=== PATIENT | female | born 1985 | race Caucasian/White ===

== ENCOUNTER → 2021-06-16 17:11 | Outpatient (BNVA) | payer OTHER, SELFPAY | PROVIDERS: Family Provider Counselor Professional; PCP Emergency Medicine; Visit Provider Nurse Practitioner Family | DX: N39.0 Urinary tract infection, site not specified (principal) | CPT/HCPCS: 81000 ==

== ENCOUNTER 2021-11-28 18:33 | Emergency (ER) | payer BC, SELFPAY ==
[2021-11-28] VITALS (8 sets, daily range): BP systolic 105–120; BP diastolic 69–82; PULSE 75–98; RESP 16–18; TEMP 36.9; O2SAT 97–100; BMI 20.8
--- NOTE | 2021-11-28 19:23 | W.ED.FEMALGU ---
Documented by User: JAYSON Stephens 11/28/21 21:18 HPI - Female Genitourinary General: Chief complaint: Urogenital-Female Stated complaint: abd pain sent by PCP Time Seen by Provider: 11/28/21 19:14 History of Present Illness: 36-year-old female comes in with right lower quadrant abdominal pain for the last 4 days. Patient reports pain is worse than usual. Patient does have a history of some abnormal uterine bleeding since May 2021. Patient states that she has a history of uterine fibroids which she thought was causing her abnormal bleeding and was wanting to follow-up with HEALTH CARE SANITARY TECHNICIAN but just has not had found time for it. Patient had last seen her HEALTH CARE SANITARY TECHNICIAN about 11 years ago for similar abnormal bleeding. Patient appears nontoxic. Patient appears in mild to moderate pain. Patient denies any abdominal surgeries except tubal ligation test at the clinic today was negative. Ultrasound performed at the clinic today of the pelvic area was unremarkable. Patient was referred from the local clinic due to the worsening abdominal pain. MD elicited complaint: pelvic pain Pertinent past history: tubal ligation Onset (ago): day(s) Location of symptoms: RLQ Vaginal discharge: none Associated symptoms: Deny nausea Review of Systems General: Reports: 10 or more systems reviewed and unremarkable except in HPI and below Const: Denies: fever(s) Card: Denies: chest pain Resp: Denies: dyspnea GI: Denies: nausea, diarrhea or constipation Musc: Reports: back pain Skin/Breast: Denies: rash Eugene/Lymph: Denies: easy bleeding PFS ED PFSH: Medical History (Updated 11/28/21 @ 21:10 by JAYSON Stephens) History of uterine fibroid Social History Smoking and tobacco status: current every day smoker Quit status (tobacco): not considering quitting Second hand smoke exposure: No Alcohol intake: current Alcohol intake frequency: holidays/special occasions only Desire information about substance/drug rehabilitation?: No Female Reproductive History: Spontaneous abortions: No Physical Exam Const: COMMON NORMALS: alert HENMT: COMMON NORMALS: atraumatic HEAD & SCALP: atraumatic Neck/C-Spine: COMMON NORMALS: full ROM Resp: COMMON NORMALS: normal respiratory effort and clear to auscultation bilaterally AUSCULTATION: clear to auscultation bilaterally Cardio: COMMON NORMALS: regular rate and regular rhythm RATE: regular rate RHYTHM: regular rhythm GI: COMMON NORMALS: Soft to palpation AUSCULTATION: Yes Hyperactive bowel sounds present PALPATION: Yes Soft to palpation and Yes Tenderness to palpation present (GI) Details: RLQ : COMMON NORMALS: Yes no CVA tenderness BLADDER/KIDNEY EXAM: Yes no CVA tenderness Back/Pelvis: COMMON NORMALS: no CVA tenderness Extremity: COMMON NORMALS: no pedal edema Neuro: SENSORIUM/ORIENTATION: Yes alert Psych: COMMON NORMALS: cooperative Skin: COMMON NORMALS: no rashes or lesions noted GENERAL SKIN EXAM: no rashes or lesions noted Course Vital Signs: Vital signs: Vital Signs Temperature 98.4 F 11/28/21 18:46 Pulse Rate 75 11/28/21 21:31 Respiratory Rate 16 11/28/21 21:31 Blood Pressure 106/76 11/28/21 21:31 Pulse Oximetry 99 11/28/21 21:31 [facility] - Female Medical Decision Making 36-year-old female comes in today with complaints of right lower quadrant abdominal pain. Patient was seen at a local clinic and was recommended to be evaluated further in the ER due to the pain and increasing discomfort over the last 4 days. Patient reports abnormal uterine bleeding for the last 6 months since May 2021. Patient reports a history of uterine fibroids. Patient appears in mild to moderate pain. Patient appears nontoxic. Oral mucosa is pink and moist. Lungs are clear to auscultation. Bowel sounds are present throughout abdomen. Patient is tender in the right lower quadrant. Differential diagnosis includes but not limited to ovarian cyst, uterine fibroid, appendicitis, dysfunctional uterine bleeding, ectopic . Laboratory values were unremarkable. No signs of significant anemia was noted. CT of the abdomen pelvis showed no acute findings. Patient had resolution of pain after 1 dose of morphine and Zofran. I encourage her to drink plenty of fluids and follow-up with HEALTH CARE SANITARY TECHNICIAN regarding her irregular menstrual cycle and persistent uterine bleeding. Patient reported understanding agreed to plan. Gonorrhea chlamydia test was outstanding. Lab Data : 11/28/21 19:40 11/28/21 19:40 Radiology Impressions Abdomen/Pelvis CT 11/28/21 19:38 IMPRESSION: 1. No acute findings. 2. Findings consistent with medullary nephrocalcinosis. COMMENTS: Consistent with the [employer]'s Incidental Findings Committee white paper (J Am Rajni Radiol 2018): Any incidental renal lesion less than 1 cm or classified as too small to characterize, or any incidental cystic renal lesion characterized as simple-appearing, is likely benign. No follow-up imaging is recommended for these lesions per consensus recommendations based on imaging criteria. Laboratory Results WBC 7.5 10^3/uL (4.0-10.0) 11/28/21 19:40 RBC 4.00 10^6/uL (4.1-5.3) L 11/28/21 19:40 Hgb 13.5 g/dL (11.5-15.3) 11/28/21 19:40 Hct 40.5 % (37.0-47.0) 11/28/21 19:40 MCV 101.3 fl (81-99) H 11/28/21 19:40 MCH 33.8 pg (28.0-34.0) 11/28/21 19:40 MCHC 33.3 g/dL (30.0-36.0) 11/28/21 19:40 RDW 13.2 % (12.1-15.1) 11/28/21 19:40 Plt Count 203 10^3/cmm (130-400) 11/28/21 19:40 MPV 10.9 fL (7.4-10.4) H 11/28/21 19:40 Neut % (Auto) 50.9 % 11/28/21 19:40 Lymph % (Auto) 36.3 % 11/28/21 19:40 Randall % (Auto) 6.4 % 11/28/21 19:40 Eos % (Auto) 5.6 % 11/28/21 19:40 Baso % (Auto) 0.7 % 11/28/21 19:40 Neut # (Auto) 3.84 10^3/uL (1.8-7.7) 11/28/21 19:40 Lymph # (Auto) 2.7 10^3/uL (0.8-4.8) 11/28/21 19:40 Randall # (Auto) 0.5 10^3/uL (0.2-0.9) 11/28/21 19:40 Eos # (Auto) 0.4 10^3/uL (0.0-0.8) 11/28/21 19:40 Baso # (Auto) 0.1 10^3/uL (0.0-0.1) 11/28/21 19:40 Nucleated RBC % (auto) 0 % 11/28/21 19:40 Nucleated RBCs # 0.0 /100WBC 11/28/21 19:40 Sodium 139 mmol/L (136-145) 11/28/21 19:40 Potassium 3.9 mmol/L (3.5-5.1) 11/28/21 19:40 Chloride 103 mmol/L (98-107) 11/28/21 19:40 Carbon Dioxide 26 mmol/L (22-29) 11/28/21 19:40 Anion Gap 13.9 (5-19) 11/28/21 19:40 BUN 6 mg/dL (6-20) 11/28/21 19:40 Creatinine 0.6 mg/dL (0.5-0.9) 11/28/21 19:40 GFR Calculation 113.8 mL/min (90-130) 11/28/21 19:40 Glucose 95 mg/dL (65-115) 11/28/21 19:40 Calculated Osmolality 285 mOsm/kg (285-295) 11/28/21 19:40 Calcium 8.8 mg/dL (8.5-10.5) 11/28/21 19:40 Total Bilirubin 0.2 mg/dL (0.15-1.2) 11/28/21 19:40 AST 23 U/L (0-32) 11/28/21 19:40 ALT 22 U/L (0-33) 11/28/21 19:40 Alkaline Phosphatase 92 IU/L (35-105) 11/28/21 19:40 Total Protein 6.0 g/dL (6.6-8.7) L 11/28/21 19:40 Albumin 4.4 g/dL (3.5-5.2) 11/28/21 19:40 Globulin 1.6 g/dL (1.3-4.6) 11/28/21 19:40 HCG, Qual Negative (Negative) 11/28/21 19:40 Urine Color Yellow (Yellow) 11/28/21 19:31 Urine Appearance Clear (CLEAR) 11/28/21 19:31 Urine pH 6 (5-7) 11/28/21 19:31 Ur Specific Monroe 1.010 (1.005-1.030) 11/28/21 19:31 Urine Protein Neg (Negative) 11/28/21 19:31 Urine Glucose (UA) Norm (Normal) 11/28/21 19:31 Urine Ketones Negative (Negative) 11/28/21 19:31 Urine Blood Neg (Negative) 11/28/21 19:31 Urine Nitrate Negative (Negative) 11/28/21 19:31 Urine Bilirubin Neg (Negative) 11/28/21 19:31 Urine Urobilinogen Norm mg/dL (Negative) 11/28/21 19:31 Ur Leukocyte Esterase Negative (Negative) 11/28/21 19:31 Discharge Plan Discharge Patient Disposition: Home Clinical Impression: History of uterine fibroid, Abnormal uterine bleeding (AUB) Abdominal pain Qualifiers: Abdominal location: right lower quadrant Qualified Code(s): R10.31 - Right lower quadrant pain Condition: Stable Prescriptions: New hydrocodone-acetaminophen 5-325 mg tablet 1 tab PO Q8H PRN (Reason: pain) Qty: 7 0RF naproxen 500 mg tablet 500 mg PO BID Qty: 60 0RF No Action rizatriptan 10 mg tablet 10 mg PO Q2H PRN (Reason: Migraine Headache) 0RF Rx Instructions: do not exceed 3 doses per 24 hrs fluticasone propionate 50 mcg/actuation spray,suspension 1 spray INTRANASAL DAILY PRN (Reason: Nasal Congestion) 0RF Discharge Orders: Discharge ED (Routine); Ordered 11/28/21 Ordered By: Christian Machado Referrals: Viet Moreno PA [Primary Care Provider] - Discharge Diet: Usual diet Discharge Activity: Increase activity as tolerated Patient Instructions: Abdominal Pain (ED), Opioid Safety Activity Restrictions/Additional Instructions: Home and rest. Drink plenty of fluids with medication. Use naproxen twice daily to help with pelvic pain and cramping. Take hydrocodone for severe pain. Follow-up with HEALTH CARE SANITARY TECHNICIAN for abnormal uterine bleeding. Follow-up with primary care for further evaluation and treatment. Return to ER for worsening symptoms or new concerns. Coding Level of Care Code ED Electrical High Tension Tester for Chg Fwd Exam Comprehensive Documented by User: Bishnu Pichardo DO 11/29/21 00:27 HPI - Female Genitourinary General: Chief complaint: Urogenital-Female Stated complaint: abd pain sent by PCP Time Seen by Provider: 11/28/21 19:14 PFSH ED PFSH: Medical History (Updated 11/28/21 @ 21:10 by JAYSON Stephens) History of uterine fibroid Social History Smoking and tobacco status: current every day smoker Quit status (tobacco): not considering quitting Second hand smoke exposure: No Alcohol intake: current Alcohol intake frequency: holidays/special occasions only Desire information about substance/drug rehabilitation?: No Course Vital Signs: Vital signs: Vital Signs Temperature 98.4 F 11/28/21 18:46 Pulse Rate 75 11/28/21 21:31 Respiratory Rate 16 11/28/21 21:31 Blood Pressure 106/76 11/28/21 21:31 Pulse Oximetry 99 11/28/21 21:31 MDM - Female Medical Decision Making 36-year-old female comes in today with complaints of right lower quadrant abdominal pain. Patient was seen at a local clinic and was recommended to be evaluated further in the ER due to the pain and increasing discomfort over the last 4 days. Patient reports abnormal uterine bleeding for the last 6 months since May 2021. Patient reports a history of uterine fibroids. Patient appears in mild to moderate pain. Patient appears nontoxic. Oral mucosa is pink and moist. Lungs are clear to auscultation. Bowel sounds are present throughout abdomen. Patient is tender in the right lower quadrant. Differential diagnosis includes but not limited to ovarian cyst, uterine fibroid, appendicitis, dysfunctional uterine bleeding, ectopic . Laboratory values were unremarkable. No signs of significant anemia was noted. CT of the abdomen pelvis showed no acute findings. Patient had resolution of pain after 1 dose of morphine and Zofran. I encourage her to drink plenty of fluids and follow-up with HEALTH CARE SANITARY TECHNICIAN regarding her irregular menstrual cycle and persistent uterine bleeding. Patient reported understanding agreed to plan. Gonorrhea chlamydia test was outstanding. This patient was originally seen by JAYSON Estrada.? I agree with his history, evaluation, and treatment. Lab Data : 11/28/21 19:40 11/28/21 19:40 Radiology Impressions Abdomen/Pelvis CT 11/28/21 19:38
--- NOTE | 2021-11-28 19:38 | CTR_ITS ---
PROCEDURE INFORMATION: Exam: CT Abdomen And Pelvis With Contrast Exam date and time: 11/28/2021 8:29 PM Age: 36 years old Clinical indication: Abdominal pain; Localized; Lower; Prior surgery; Surgery type: Gb. Tubal; Patient HX: C/O RT pelvic pain x 4 days. ; Additional info: Right pelvic pain TECHNIQUE: Imaging protocol: Computed tomography of the abdomen and pelvis with contrast. Radiation optimization: All CT scans at this facility use at least one of these dose optimization techniques: automated exposure control; mA and/or kV adjustment per patient size (includes targeted exams where dose is matched to clinical indication); or iterative reconstruction. Contrast material: OMNI 300; Contrast volume: 95 ml; Contrast route: INTRAVENOUS (IV); COMPARISON: No relevant prior studies available. RADIATION DOSE METRICS: Total DLP (mGy-cm): 984.79 FINDINGS: Liver: Normal. No mass. Gallbladder and bile ducts: Cholecystectomy. No ductal dilation. Pancreas: Normal. No ductal dilation. Spleen: Normal. No splenomegaly. Adrenal glands: Normal. No mass. Kidneys and ureters: Multiple calcifications throughout the renal pyramids. Scattered simple appearing cysts within both kidneys measuring up to 2 cm. No hydronephrosis. Stomach and bowel: Moderate colonic stool burden. No obstruction. No mucosal thickening. Appendix: No evidence of appendicitis. Intraperitoneal space: Unremarkable. No free air. No significant fluid collection. Vasculature: Unremarkable. No abdominal aortic aneurysm. Lymph nodes: Unremarkable. No enlarged lymph nodes. Urinary bladder: Unremarkable as visualized. Reproductive: Unremarkable as visualized. Bones/joints: No acute fracture. Soft tissues: Unremarkable. CT/CT abdomen pelvis w con* [id number] IMPRESSION: 1. No acute findings. 2. Findings consistent with medullary nephrocalcinosis. COMMENTS: Consistent with the [employer]'s Incidental Findings Committee white paper (J Am Rajni Radiol 2018): Any incidental renal lesion less than 1 cm or classified as too small to characterize, or any incidental cystic renal lesion characterized as simple-appearing, is likely benign. No follow-up imaging is recommended for these lesions per consensus recommendations based on imaging criteria.
[2021-11-28 19:48] LABS: Add Urine Microscopic? NO; Charge for UA Resulting for Rev
[2021-11-28 19:50] LABS: Basophils # 0.1 10^3/uL (0.0-0.1); Basophils % 0.7 %; Eosinophils # 0.4 10^3/uL (0.0-0.8); Eosinophils % 5.6 %; Hematocrit 40.5 % (37.0-47.0); Hemoglobin 13.5 g/dL (11.5-15.3); Lymphocytes # 2.7 10^3/uL (0.8-4.8); Lymphocytes % 36.3 %; Mean Corpuscular HGB Conc 33.3 g/dL (30.0-36.0); Mean Corpuscular Hemoglobin 33.8 pg (28.0-34.0); Mean Corpuscular Volume 101.3 fl (81-99); Mean Platelet Volume 10.9 fL (7.4-10.4); Monocytes # 0.5 10^3/uL (0.2-0.9); Monocytes % 6.4 %; Neutrophils # 3.84 10^3/uL (1.8-7.7); Neutrophils % 50.9 %; Nucleated Red Blood Cells % 0 %; Platelet Count 203 10^3/cmm (130-400); Red Cell Distribution Width 13.2 % (12.1-15.1); White Blood Count 7.5 10^3/uL (4.0-10.0)
[2021-11-28 19:52] LABS: Bilirubin Urine Neg (Negative); Blood Urine Neg (Negative); Glucose Urine UA Norm (Normal); Ketones Urine Negative (Negative); Leukocyte Esterase Urine Negative (Negative); Nitrate Urine Negative (Negative); Protein Urine Neg (Negative); Urine Appearance Clear (CLEAR); Urine Color Yellow (Yellow); Urobilinogen Urine Norm (Negative); pH Urine 6 (5-7)
[2021-11-28] MEDS: sodium chloride 0.9% 500 ML 999 ML IV (20:04)
[2021-11-28] MEDS: ondansetron 2 mg/ML SDV 2 mL 4 MG IVP (20:04)
[2021-11-28] MEDS: morphine 4 mg/mL SDV 1 mL IVP (20:06)
[2021-11-28 20:09] LABS: Alanine Aminotransferase 22 U/L (0-33); Albumin Level 4.4 g/dL (3.5-5.2); Alkaline Phosphatase 92 IU/L (35-105); Anion Gap 13.9 (5-19); Aspartate Amino Transferase 23 U/L (0-32); Blood Urea Nitrogen 6 mg/dL (6-20); Calcium 8.8 mg/dL (8.5-10.5); Carbon Dioxide 26 mmol/L (22-29); Chloride 103 mmol/L (98-107); Globulin 1.6 g/dL (1.3-4.6); Glomerular Filtration Rate 113.8 mL/min (90-130); Glucose 95 mg/dL (65-115); Osmolality Calculated 285 mOsm/kg (285-295); Potassium 3.9 mmol/L (3.5-5.1); Sodium 139 mmol/L (136-145); Total Bilirubin 0.2 mg/dL (0.15-1.2)
[2021-11-28 20:11] LABS: HCG, Serum Qual Negative (Negative)
[2021-11-28] MEDS: iohexol 300 mg/mL 100 mL Btl IV (20:30)
--- NOTE | 2021-12-01 11:26 | DCPLANNER ---
Addendum entered by Meagan Luque 12/05/21 11:21: manager book spoke with Adrian at [facility], to confirm if an appointment had been scheduled for patient. manager book was told that clinic has not been able to reach patient. Clinic has tried to call several times, and mailed a letter to patient to call clinic to schedule a follow up appointment. Original Note: manager book had message to schedule a follow up appointment for patient with [facility]. manager book sent patients information to the front staff at [facility] thru the [employer] messaging system. Patients information will be printed and reviewed. Clinic will call patient with appointment information.
== END 2021-11-28 21:25 | disposition home or self-care (01) ==
PROVIDERS: Emergency Provider Nurse Practitioner Family; PCP Emergency Medicine
DX: N93.9 Abnormal uterine and vaginal bleeding, unspecified (principal); F17.210 Nicotine dependence, cigarettes, uncomplicated
CPT/HCPCS: 74177; 80053; 81000; 81003; 81025; 84703; 85025; 96374; 96375; 99284; J2270; J2405; J7040; Q9967

== ENCOUNTER → 2022-07-07 16:30 | Outpatient (BNVA) | payer BC, SELFPAY | PROVIDERS: PCP Emergency Medicine; Visit Provider Emergency Medicine | DX: S49.91XA Unspecified injury of right shoulder and upper arm, initial encounter (principal); X58.XXXA Exposure to other specified factors, initial encounter | CPT/HCPCS: 73030 ==

== ENCOUNTER → 2022-07-27 14:06 | Outpatient (BNVA) | payer BC, SELFPAY | PROVIDERS: Visit Provider Nurse Practitioner Family | DX: M19.011 Primary osteoarthritis, right shoulder (principal) | CPT/HCPCS: 73030 ==

== ENCOUNTER 2022-08-05 06:00 | Outpatient (RCR) | payer BC, SELFPAY | END 2022-08-29 23:59 | disposition home or self-care (01) | LOC: MPT 06:00 | PROVIDERS: Visit Provider Nurse Practitioner Family | DX: M25.511 Pain in right shoulder (principal) | CPT/HCPCS: 97110; 97140; 97161 ==

== ENCOUNTER 2022-08-30 06:00 | Outpatient (RCR) | payer BC, SELFPAY | END 2022-09-29 23:59 | disposition home or self-care (01) | LOC: MPT 06:00 | PROVIDERS: Visit Provider Nurse Practitioner Family | DX: M25.511 Pain in right shoulder (principal) | CPT/HCPCS: 97110 ==

== ENCOUNTER 2023-03-17 22:54 | Emergency (ER) | payer BC, SELFPAY ==
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
[2023-03-17 23:02] VITALS: BP 134/83; PULSE 84; RESP 12; TEMP 36.8; O2SAT 100; BMI 18.0
[2023-03-17] MEDS: diphenhydrAMINE 50 mg/mL SDV 1mL 25 MG IVP (23:46)
[2023-03-17] MEDS: LORazepam 2 mg/mL INJ 1 mL 0.5 MG IVP (23:46)
[2023-03-17 23:52] VITALS: BP 141/81; PULSE 85; RESP 20; O2SAT 100
--- NOTE | 2023-03-24 12:00 | DCPLANNER ---
manager of security called patient due to no primary care physician - no answer at this time.
== END 2023-03-18 00:26 | disposition home or self-care (01) ==
PROVIDERS: Emergency Provider Physician Assistant
DX: F41.9 Anxiety disorder, unspecified (principal); F17.210 Nicotine dependence, cigarettes, uncomplicated
CPT/HCPCS: 96374; 96375; 99284; J1200; J2060

== ENCOUNTER 2023-04-18 00:54 | Emergency (ER) | payer SELFPAY ==
[2023-04-18 00:57] VITALS: BP 124/68; PULSE 124; RESP 18; TEMP 36.7; O2SAT 99; BMI 20.7
[2023-04-18 01:33] LABS: Basophils # 0.1 10^3/uL (0.0-0.1); Basophils % 0.8 %; Eosinophils # 0.2 10^3/uL (0.0-0.8); Eosinophils % 1.9 %; Lymphocytes # 2.9 10^3/uL (0.8-4.8); Lymphocytes % 36.2 %; Mean Corpuscular HGB Conc 31.4 g/dL (30.0-36.0); Mean Corpuscular Hemoglobin 29.5 pg (28.0-34.0); Mean Corpuscular Volume 93.8 fl (81-99); Mean Platelet Volume 9.5 fL (7.4-10.4); Monocytes # 0.5 10^3/uL (0.2-0.9); Monocytes % 6.2 %; Neutrophils % 54.6 %; Nucleated Red Blood Cells % 0 %; Platelet Count 320 10^3/cmm (130-400); Red Blood Count 3.73 10^6/uL (4.1-5.3); Red Cell Distribution Width 17.3 % (12.1-15.1); White Blood Count 7.9 10^3/uL (4.0-10.0)
[2023-04-18 01:54] LABS: Alanine Aminotransferase 17 U/L (0-33); Albumin Level 4.4 g/dL (3.5-5.2); Alcohol Level 102 mg/dL (0-10); Alkaline Phosphatase 125 U/L (35-105); Anion Gap 16.8 (5-19); Aspartate Amino Transferase 23 U/L (0-32); Blood Urea Nitrogen 11 mg/dL (6-20); Calcium 8.6 mg/dL (8.5-10.5); Carbon Dioxide 23 mmol/L (22-29); Chloride 109 mmol/L (98-107); Globulin 2.5 g/dL (1.3-4.6); Glomerular Filtration Rate 70.8 mL/min (90-130); Glucose 129 mg/dL (65-115); Osmolality Calculated 301 mOsm/kg (285-295); Potassium 3.8 mmol/L (3.5-5.1); Salicylate 0.8 mg/dL (3-10); Sodium 145 mmol/L (136-145); Total Bilirubin 0.2 mg/dL (0.15-1.2); Total Protein 6.9 g/dL (6.6-8.7)
[2023-04-18] MEDS: nicotine 21 mg Patch 1 PATCH TRANSDERMA (01:59)
[2023-04-18 02:02] LABS: Acetaminophen < 5.0 ug/mL (10-30)
[2023-04-18 02:07] LABS: Amphetamines Screen Urine Negative (Negative); Barbiturates Screen Urine Negative (Negative); Benzodiazepines Screen Urine Negative (Negative); Cocaine Screen Urine Negative (Negative); Opiate Screen Urine Positive (Negative); PCP Screen Urine Negative (Negative); THC Screen Urine Negative (Negative)
[2023-04-18 02:08] LABS: HCG Qualitative Urine. Positive (Negative)
[2023-04-18 02:13] LABS: Add Urine Culture? No; Add Urine Microscopic? YES; Bacteria Urine 1+ /hpf; Bilirubin Urine Neg (Negative); Blood Urine 2+ (Negative); Glucose Urine UA Norm (Normal); Ketones Urine Negative (Negative); Leukocyte Esterase Urine 2+ (Negative); Nitrate Urine Negative (Negative); Protein Urine Trace (Negative); RBC Urine 0-4 /hpf (0-2); Urine Appearance Cloudy (CLEAR); Urine Color Yellow (Yellow); Urobilinogen Urine Norm (Negative); WBC Urine >100 /hpf (0-5); pH Urine 7 (5-7)
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
[2023-04-18] MEDS: acetaminophen 325 mg Tablet 650 MG PO (02:22)
== END 2023-04-18 02:24 | disposition home or self-care (01) ==
PROVIDERS: Emergency Provider Emergency Medicine
DX: S01.01XA Laceration without foreign body of scalp, initial encounter (principal); W22.8XXA Striking against or struck by other objects, initial encounter; F10.129 Alcohol abuse with intoxication, unspecified; Y90.5 Blood alcohol level of 100-119 mg/100 ml
CPT/HCPCS: 36415; 80053; 80306; 80307; 81001; 81025; 85025; 99283

== ENCOUNTER → 2023-04-19 09:31 | Outpatient (BNVA) | payer SELFPAY | PROVIDERS: Visit Provider Nurse Practitioner Family | DX: N92.6 Irregular menstruation, unspecified (principal); Z02.83 Encounter for blood-alcohol and blood-drug test; N39.0 Urinary tract infection, site not specified; N30.01 Acute cystitis with hematuria; S01.01XD Laceration without foreign body of scalp, subsequent encounter; W22.09XD Striking against other stationary object, subsequent encounter | CPT/HCPCS: 80307; 81000; 84703; 87077; 87086; 87184 ==

== ENCOUNTER → 2023-04-20 14:06 | Outpatient (BNVA) | payer SELFPAY | PROVIDERS: Visit Provider Nurse Practitioner | DX: M25.552 Pain in left hip (principal) | CPT/HCPCS: 73502 ==

== ENCOUNTER 2023-06-20 21:30 | Emergency (ER) | payer BC, SELFPAY ==
[2023-06-20 21:35] VITALS: BP 118/79; PULSE 108; RESP 17; TEMP 36.8; O2SAT 99; BMI 21.8
[2023-06-20 22:50] VITALS: BP 118/69
[2023-06-20 23:07] LABS: Basophils # 0.1 10^3/uL (0.0-0.1); Basophils % 0.6 %; Eosinophils # 0.2 10^3/uL (0.0-0.8); Eosinophils % 2.9 %; Hematocrit 31.6 % (36-47); Lymphocytes # 2.5 10^3/uL (0.8-4.8); Lymphocytes % 29.4 %; Mean Corpuscular Hemoglobin 29.3 pg (27-33); Mean Corpuscular Volume 94.3 fl (85-98); Mean Platelet Volume 10.1 fL (7.4-10.4); Monocytes # 0.5 10^3/uL (0.2-0.9); Monocytes % 5.8 %; Neutrophils # 5.11 10^3/uL (1.8-7.7); Neutrophils % 60.8 %; Nucleated Red Blood Cells % 0 %; Platelet Count 274 10^3/cmm (157-399); Red Blood Count 3.35 10^6/uL (3.85-5.65); Red Cell Distribution Width 15.1 % (12.1-15.1)
[2023-06-20 23:25] LABS: Alanine Aminotransferase 14 U/L (0-33); Albumin Level 3.9 g/dL (3.5-5.2); Alkaline Phosphatase 77 U/L (35-105); Anion Gap 12.7 (5-19); Aspartate Amino Transferase 12 U/L (0-32); Blood Urea Nitrogen 15 mg/dL (6-20); Calcium 9.7 mg/dL (8.5-10.5); Carbon Dioxide 26 mmol/L (22-29); Chloride 105 mmol/L (98-107); Globulin 2.2 g/dL (1.3-4.6); Glomerular Filtration Rate 94.2 mL/min (90-130); Glucose 114 mg/dL (65-115); Magnesium 1.4 mg/dL (1.7-2.3); Osmolality Calculated 292 mOsm/kg (285-295); Potassium 3.7 mmol/L (3.5-5.1); Sodium 140 mmol/L (136-145); Total Bilirubin 0.2 mg/dL (0.15-1.2); Total Protein 6.1 g/dL (6.6-8.7)
[2023-06-20 23:29] LABS: HCG, Serum Qual Negative (Negative)
[2023-06-20 23:34] LABS: Add Urine Microscopic? YES; Bilirubin Urine Neg (Negative); Blood Urine Neg (Negative); Glucose Urine UA Norm (Normal); Ketones Urine Negative (Negative); Leukocyte Esterase Urine 2+ (Negative); Nitrate Urine Negative (Negative); Protein Urine Neg (Negative); RBC Urine RARE /hpf (0-2); Specific Gravity, Urine 1.015 (1.005-1.030); Urine Appearance Hazy (CLEAR); Urine Color Yellow (Yellow); Urobilinogen Urine Neg (Negative); pH Urine 6 (5-7)
[2023-06-20 23:35] LABS: Add Urine Culture? Yes; Bacteria Urine TRACE /hpf; WBC Urine 15-25 /hpf (0-5)
[2023-06-21 00:51] VITALS: BP 118/69; PULSE 108; RESP 17; TEMP 36.8; O2SAT 99
--- NOTE | 2023-06-21 02:25 | ED_ITS ---
HPI - General Adult General: Chief complaint: General Medical Stated complaint: bp high, lip is numb Time Seen by Provider: 06/20/23 21:54 History of Present Illness: 38-year-old female who is currently a resident at [facility] undergoing rehabilitation. She presents with symptoms of the right side of her face going numb. This has been going on for more than a day or so. She states that the symptoms are not infrequent for her. She blames Arnold-Chiari malformation for this, which she has. She notes that her face is less numb now than it was. No other neurological symptoms. She does state that her heart rate has been up, and that her blood pressure has been hypertensive while she has been there. She has been taking clonidine without much relief. Associated symptoms: Reports nausea; Deny chest pain, dyspnea, palpitations or vomiting Review of Systems Const: Denies: fever(s) Eyes: Denies: change in vision Card: Denies: chest pain or palpitations Resp: Denies: dyspnea GI: Reports: nausea; Denies: vomiting PFSH ED PFSH: Medical History History of uterine fibroid Psychiatric care Family History Father Cancer kidney and lungs, blood Clotting disorder Chronic kidney disease (CKD) Heart disease Diabetes Grandfather Cancer blood, bones, and lungs Grandmother Clotting disorder Heart disease maternal and paternal Diabetes paternal Mother Heart disease Denies family history of Bleeding disorder Stroke Social History Smoking and tobacco/nicotine status: current every day tobacco/nicotine user (1/2 PPD) Quit status (tobacco/nicotine): not considering quitting Second hand smoke exposure: No Alcohol intake: current Alcohol intake frequency: holidays/special occasions o nly Substance/Drug Use: former Female Reproductive History: Spontaneous abortions: No Physical Exam Const: COMMON NORMALS: no acute distress and alert GENERAL APPEARANCE: cooperative; not ill appearing and not frail appearing HENMT: COMMON NORMALS: normocephalic, atraumatic and Normal external nose present HEAD & SCALP: normocephalic and atraumatic FACE & SINUS: normal facial exam and face symmetric NOSE: Normal external nose present Eye: COMMON NORMALS: Equal, round and reactive pupils present and EOMs intact bilaterally PUPIL: Yes Equal, round and reactive pupils present Neck/C-Spine: GENERAL: Yes trachea midline Chest: CHEST: Yes Symmetrical chest wall rise Resp: COMMON NORMALS: normal respiratory effort, No retractions, No use of accessory muscles and clear to auscultation bilaterally AUSCULTATION: clear to auscultation bilaterally Cardio: COMMON NORMALS: regular rate and regular rhythm RATE: regular rate RHYTHM: regular rhythm GI: COMMON NORMALS: Normal to inspection, nondistended, normoactive bowel sounds present Extremity: COMMON NORMALS: no pedal edema Neuro: REAL COMA SCALE: document GCS findings Real coma scale eye opening: Spontaneous [place] coma scale verbal response: Orientated [place] coma scale motor response: Obey commands [place] coma scale total score: 15 SENSORIUM/ORIENTATION: Yes alert SPEECH: speech normal SENSORY EXAM: Yes extremities (intact) Psych: COMMON NORMALS: speech normal SPEECH: Yes normal speech Skin: COMMON NORMALS: no rashes or lesions noted GENERAL SKIN EXAM: no rashes or lesions noted Course Vital Signs: Vital signs: Vital Signs Temperature 98.2 F 06/21/23 00:51 Pulse Rate 108 H 06/21/23 00:51 Respiratory Rate 17 06/21/23 00:51 Blood Pressure 118/69 06/21/23 00:51 Pulse Oximetry 99 06/21/23 00:51 Oxygen Delivery Me thod Room Air 06/20/23 21:35 MDM - General Adult Medical Decision Making This patient is resting comfortably in her room. She is mildly tachycardic, however she is not hypertensive. At 1 point, blood pressure was as low as 106 systolic. I am reluctant to treat tachycardia with this low blood pressure. Her laboratory indices show a hemoglobin of 9.8. She appears to have a urinary tract infection on urinalysis. Other laboratory is not remarkable. UTI will be treated. She is encouraged to stay hydrated, which should help her tachycardia. They will continue clonidine for withdrawal control, although she should be over the worst of her withdrawals a day 5. She will return to the rehab facility. Lab Data 06/20/23 22:57 10 22:57 Laboratory Results WBC 8.40 10^3/uL (3.29-11.43) 06/20/23 22:57 RBC 3.35 10^6/uL (3.85-5.65) L 06/20/23 22:57 Hgb 9.80 g/dL (11.27-16.99) L 06/20/23 22:57 Hct 31.6 % (36-47) L 06/20/23 22:57 MCV 94.3 fl (85-98) 06/20/23 22:57 MCH 29.3 pg (27-33) 06/20/23 22:57 MCHC 31.0 g/dL (30-55) 06/20/23 22:57 RDW 15.1 % (12.1-15.1) 06/20/23 22:57 Plt Count 274 10^3/cmm (157-399) 06/20/23 22:57 MPV 10.1 fL (7.4-10.4) 06/20/23 22:57 Neut % (Auto) 60.8 % 06/20/23 22:57 Lymph % (Auto) 29.4 % 06/20/23 22:57 [place] % (Auto) 5.8 % 06/20/23 22:57 Eos % (Auto) 2.9 % 06/20/23 22:57 Baso % (Auto) 0.6 % 06/20/23 22:57 Neut # (Auto) 5.11 10^3/uL (1.8-7.7) 06/20/23 22:57 Lymph # (Auto) 2.5 10^3/uL (0.8-4.8) 06/20/23 22:57 [place] # (Auto) 0.5 10^3/uL (0.2-0.9) 06/20/23 22:57 Eos # (Auto) 0.2 10^3/uL (0.0-0.8) 06/20/23 22:57 Baso # (Auto) 0.1 10^3/uL (0.0-0.1) 06/20/23 22:57 Nucleated RBC % (auto) 0 % 06/20/23 22:57 Nucleated RBCs # 0.0 /100WBC 06/20/23 22:57 Sodium 140 mmol/L (136-145) 06/20/23 22:57 Potassium 3.7 mmol/L (3.5-5.1) 06/20/23 22:57 Chloride 105 mmol/L (98-107) 06/20/23 22:57 Carbon Dioxide 26 mmol/L (22-29) 06/20/23 22:57 Anion Gap 12.7 (5-19) 06/20/23 22:57 BUN 15 mg/dL (6-20) 06/20/23 22:57 Creatinine 0.7 mg/dL (0.5-0.9) 06/20/23 22:57 GFR Calculation 94.2 mL/min (90-130) 06/20/23 22:57 Glucose 114 mg/dL (65-115) 06/20/23 22:57 Calculated Osmolality 292 mOsm/kg (285-295) 06/20/23 22:57 Calcium 9.7 mg/dL (8.5-10.5) 06/20/23 22:57 Magnesium 1.4 mg/dL (1.7-2.3) L 06/20/23 22:57 Total Bilirubin 0.2 mg/dL (0.15-1.2) 06/20/23 22:57 AST 12 U/L (0-32) 06/20/23 22:57 ALT 14 U/L (0-33) 06/20/23 22:57 Alkaline Phosphatase 77 U/L (35-105) 06/20/23 22:57 Total Protein 6.1 g/dL (6.6-8.7) L 06/20/23 22:57 Albumin 3.9 g/dL (3.5-5.2) 06/20/23 22:57 Globulin 2.2 g/dL (1.3-4.6) 06/20/23 22:57 HCG, Qual Negative (Negative) 06/20/23 22:55 Urine Color Yellow (Yellow) 06/20/23 22:55 Urine Appearance Hazy (CLEAR) A 06/20/23 22: Urine pH 6 (5-7) 06/20/23 22: Ur Specific [place] 1.015 (1.005-1.030) 06/20/23 22:55 Urine Protein Neg (Negative) 06/20/23 22:55 Urine Glucose (UA) Norm (Normal) 06/20/23 22:55 Urine Ketones Negative (Negative) 06/20/23 22: Urine Blood Neg (Negative) 06/20/23 22:55 Urine Nitrate Negative (Negative) 06/20/23 22:55 Urine Bilirubin Neg (Negative) 06/20/23 22:55 Urine Urobilinogen Neg mg/dL (Negative) 06/20/23 22:55 Ur Leukocyte Esterase 2+ (Negative) H 06/20/23 22:55 Urine RBC Rare /hpf (0-2) 06/20/23 22:55 Urine WBC 15-25 /hpf (0-5) H 06/20/23 22:55 Ur Squamous Epith Cells 5-10 /hpf (0-5) H 06/20/23 22:55 Amorphous Sediment Not Reportable 06/20/23 22:55 Urine Bacteria Trace /hpf (NONE) 06/20/23 22:55 No radiology studies performed this visit Discharge Plan Discharge Patient Disposition: Home Clinical Impression: Urinary tract infection Condition: Stable Prescriptions: New Macrobid 100 mg capsule 100 mg PO BID 7 Days Qty: 14 0RF Rx Instructions: must administer with a meal/food No Action rizatriptan [Maxalt-[employer]] 10 mg tablet,disintegrating See Rx Instructions PO .COMPLEX Qty: 10 0RF Rx Instructions: take 1 tab at onset of headache; if no relief may repeat 1 tab after at least 2 hrs; max = 3 tabs/24 hr PO cephalexin 500 mg capsule 500 mg PO BID 10 Days Qty: 20 0RF buspirone 5 mg tablet 5 mg PO BID Qty: 60 0RF naproxen 500 mg tablet 500 mg PO BID Qty: 60 0RF hydroxyzine HCl 50 mg tablet 50 mg PO Q6H PRN (Reason: anxiety) Qty: 30 0RF Discharge Orders: Discharge ED (Routine); Ordered 06/21/23 Ordered By: Bishnu Pichardo Referrals: Laurel Sheikh FNP [Primary Care Provider] - 1-3 days Patient Instructions: Urinary Tract Infection in Women (ED) Activity Restrictions/Additional Instructions: Make sure you are drinking plenty of fluids. Antibiotics as directed for urinary tract infection. Keep checking your blood pressure twice daily. Your blood pressure came down nicely this morning, so no specific treatment is necessary at this point. Coding Level of Care Code ED Route Clerk for Omar Olmedo
== END 2023-06-21 00:53 | disposition home or self-care (01) ==
PROVIDERS: Emergency Provider Emergency Medicine; PCP Nurse Practitioner
DX: N39.0 Urinary tract infection, site not specified (principal); F17.210 Nicotine dependence, cigarettes, uncomplicated
CPT/HCPCS: 36415; 80053; 81001; 83735; 84703; 85025; 87077; 87086; 87186; 99283

== ENCOUNTER 2023-08-13 16:06 | Emergency (ER) | payer SELFPAY ==
[2023-08-13 16:14] VITALS: BP 139/95; PULSE 107; RESP 18; TEMP 36.7; O2SAT 99; BMI 20.7
[2023-08-13 16:20] VITALS: BP 139/95; PULSE 109; RESP 18; O2SAT 99
--- NOTE | 2023-08-13 16:22 | CTR_ITS ---
PROCEDURE INFORMATION: Exam: CT Abdomen And Pelvis With Contrast Exam date and time: 08/13/2023 5:34 PM Age: 38 years old Clinical indication: Abdominal pain; Localized; Right; Prior surgery; Surgery date: 6+ months; Surgery type: Gb; Additional info: Abdominal pain/distention/ruq/r flank pain TECHNIQUE: Imaging protocol: Computed tomography of the abdomen and pelvis with contrast. Radiation optimization: All CT scans at this facility use at least one of these dose optimization techniques: automated exposure control; mA and/or kV adjustment per patient size (includes targeted exams where dose is matched to clinical indication); or iterative reconstruction. Contrast material: OMNI 350; Contrast volume: 100 ml; Contrast route: INTRAVENOUS (IV); REPORTING DATA: Count of CT and Cardiac NM exams in prior 12 months: This patient has received 0 known CTs and 0 known cardiac nuclear medicine studies in the 12 months prior to the current study. COMPARISON: CT abdomen pelvis w con* [id number] 11/28/2021 8:29 PM RADIATION DOSE METRICS: Total DLP (mGy-cm): 502.43 FINDINGS: Liver: Normal. No mass. Gallbladder and bile ducts: Cholecystectomy. No ductal dilation. Pancreas: Normal. No ductal dilation. Spleen: Normal. No splenomegaly. Adrenal glands: Normal. No mass. Kidneys and ureters: Scattered simple cysts in both kidneys measuring up to 1.8 cm in the right kidney. Medullary calcifications noted. No hydronephrosis. Stomach and bowel: Unremarkable. No obstruction. No mucosal thickening. Appendix: No evidence of appendicitis. Intraperitoneal space: Unremarkable. No free air. No significant fluid collection. Vasculature: Unremarkable. No abdominal aortic aneurysm. Lymph nodes: Unremarkable. No enlarged lymph nodes. Urinary bladder: Unremarkable as visualized. Reproductive: Unremarkable as visualized. Bones/joints: No acute fracture. Soft tissues: Unremarkable. CT/CT abdomen pelvis w con* [id number] IMPRESSION: No acute findings.
--- NOTE | 2023-08-13 16:22 | XRR_ITS ---
PROCEDURE INFORMATION: Exam: XR Chest Exam date and time: 08/13/2023 4:53 PM Age: 38 years old Clinical indication: Shortness of breath; Additional info: SOB, swelling TECHNIQUE: Imaging protocol: Radiologic exam of the chest. Views: 1 view. COMPARISON: CR XR shoulder RT min 2V* [id number] 07/27/2022 2:06 PM FINDINGS: Lungs: Unremarkable. No consolidation. Pleural spaces: Unremarkable. No pleural effusion. No pneumothorax. Heart/Mediastinum: Unremarkable. No cardiomegaly. Bones/joints: Unremarkable. XR/XR chest 1V portable [id number] IMPRESSION: No acute findings.
--- NOTE | 2023-08-13 16:24 | ED_ITS ---
HPI - Abdominal Pain 2 General: Chief Complaint: Abdominal Pain Stated Complaint: lower left abd pain, leg and feet pain Time Seen by Provider: 08/13/23 16:09 Source: patient Mode of arrival: ambulatory Limitations: no limitations History of Present Illness: Patient is a 38-year-old female with a history of medullary sponge kidney disease and methamphetamine abuse here for concerns of right abdominal pain and fullness as well as right flank pain accompanied by abdominal swelling/bloating. Patient states she has felt bloated over the past 1.5 weeks. She began developing pain approximately 4 days ago. Patient has some mildly painful urination reporting her urine feels gritty . She is not having nausea, vomiting, changes to her bowel movements. She does feel like her lower extremities are swelling and has also noticed some swelling to her hands as well. She does not complain of any chest pain although during exam she does tell me she feels short of breath. No recent URI-like symptoms. Patient is residing at [facility]. Last methamphetamine use was approximately 8 days ago. History of hepatitis C although states she finished treatment for this. MD elicited complaint: abdominal pain Onset (ago): day(s) Pain Consistency: constant Location: RUQ, RLQ and R flank Severity: severe Quality: aching and fullness Radiation: none Migration to: no migration Exacerbating factors: nothing Relieving factors: nothing Associated Symptoms: Denies chills, diarrhea, dysuria, fever(s), heartburn, hematuria, nausea, syncope and vomiting Review of Systems 2 Const: Denies: fever(s), chills, body aches, fatigue or malaise Eyes: Denies: change in vision or blurry vision Card: Reports: swelling of feet/ankles; Denies: chest pain, palpitations, irregular heart rhythm, lightheadedness, syncope, pre-syncope, dyspnea on exertion, leg pain with exertion or acrocyanosis Resp: Reports: dyspnea; Denies: productive cough, non-productive cough, wheezing, stridor, pain on inspiration, change in phlegm color, hemoptysis or chest congestion GI: Reports: abdominal pain; Denies: nausea, vomiting, heartburn or diarrhea : Reports: flank pain; Denies: difficulty voiding, dysuria, urinary frequency, urinary urgency, urinary hesitancy, hematuria or pelvic pain Musc: Denies: neck pain, back pain, extremity pain, extremity swelling or joint pain Skin/Breast: Denies: rash Neuro: Denies: headache(s), numbness in extremities, weakness in extremities, sensory changes or difficulty walking PFSH ED 2 PFSH: Medical History Psychiatric care History of uterine fibroid Family History Father Cancer kidney and lungs, blood Clotting disorder Chronic kidney disease (CKD) Heart disease Diabetes Grandfather Cancer blood, bones, and lungs Grandmother Clotting disorder Heart disease maternal and paternal Diabetes paternal Mother Heart disease Denies family history of Bleeding disorder Stroke Social History Smoking and tobacco/nicotine status: current every day tobacco/nicotine user (1/2 PPD) Quit status (tobacco/nicotine): not considering quitting Second hand smoke exposure: No Alcohol intake: current Alcohol intake frequency: holidays/special occasions only Substance/Drug Use: former Female Reproductive History: Spontaneous abortions: No Physical Exam 2 Const: COMMON NORMALS: no acute distress, average body habitus, patient oriented x3, no limitations, healthy appearing, alert and well nourished G ENERAL APPEARANCE: cooperative ORIENTATION/CONSCIOUSNESS: Yes awake, Yes oriented to person, Yes oriented to place and Yes oriented to time HENMT: COMMON NORMALS: normocephalic and atraumatic HEAD & SCALP: n ormocephalic and atraumatic Eye: COMMON NORMALS: no scleral icterus GENERAL EYE: appearance normal, both eyes and all related structures Neck/C-Spine: COMMON NORMALS: full ROM, no lymphadenopathy, supple and no meningeal signs Chest: COMMONS NORMALS: normal inspection of the chest Resp: COMMON NORMALS: normal respiratory effort and clear to auscultation bilaterally AUSCULTATION: clear to auscultation bilaterally Cardio: COMMON NORMALS: regular rate RATE: regular rate and tachycardic GI: COMMON NORMALS: Normal to inspection, nondistended, normoactive bowel sounds present, Soft to palpation and no masses INSPECTION: Yes abdominal distension AUSCULTATION: Yes normoactive bowel sounds PALPATION: Yes Soft to palpation, Yes Tenderness to palpation present (GI) (throughout R abdomen/flank), No Guarding due to palpation present (GI) and No Rigid due to palpation : BLADDER/KIDNEY EXAM: Yes CVA tenderness on the right Back/Pelvis: COMMON NORMALS: thoracic and lumbar spine normal to inspection GENERAL BACK: Yes CVA tenderness Extremity: COMMON NORMALS: normal to inspection, full ROM, capillary refill normal, no joint enlargement and no calf tenderness NARRATIVE EXTREMITY EXAM: mild non-pitting edema symmetrically to lower extremities GENERAL: Yes normal exam except as noted Neuro: EKATERINA COMA SCALE: document GCS findings [place] coma scale eye opening: Spontaneous [place] coma scale verbal response: Orientated [place] coma scale motor response: Obey commands [place] coma scale total score: 15 COMMON NORMALS: patient oriented x3, moves all extremities, no focal motor deficits, no sensory deficits noted and gait normal SENSORIUM/ORIENTATION: Yes alert, Yes oriented to person, Yes oriented to place and Yes oriented to time MENINGEAL SIGNS: Yes no meningeal signs Skin: COMMON NORMALS: no rashes or lesions noted GENERAL SKIN EXAM: no rashes or lesions noted Course 2 Vital Signs: Vital signs: Vital Signs Temperature 98.1 F 08/13/23 16:14 Pulse Rate 109 H 08/13/23 16:20 Respiratory Rate 18 08/13/23 16:20 Blood Pressure 139/95 08/13/23 16:20 Pulse Oximetry 99 08/13/23 16:20 Oxygen Delivery Me thod Room Air 08/13/23 16:20 MDM - Abdominal Pain Medical Decision Making Patient's vital signs are stable apart from mild tachycardia. Her labs overall are unremarkable. She has chronic anemia. Chemistry is unremarkable. BNP and CXR ordered for complaint of swelling and shortness of breath. These are normal. is negative. UA positive for 2+ leuks. She is reporting symptoms. CT scan is completely unremarkable apart from her chronic medullary changes to her kidneys. At this time we will go ahead and place her on ciprofloxacin. Will culture her urine. Recommend prompt follow-up with her primary care provider or the medical provider through [facility]. Return ED precautions given. Lab Data 08/13/23 16:18 08/13/23 16:18 Labs/Radiology: Radiology Impressions Abdomen/Pelvis CT 08/13/23 16:22 IMPRESSION: No acute findings. Chest X-Ray 08/13/23 16:22 IMPRESSION: No acute findings. Laboratory Results WBC 6.93 10^3/uL (3.29-11.43) 12/15/23 16:18 RBC 3.61 10^6/uL (3.85-5.65) L 08/13/23 16:18 Hgb 9.90 g/dL (11.27-16.99) L 08/13/23 16:18 Hct 32.3 % (36-47) L 08/13/23 16:18 MCV 89.5 fl (85-98) 08/13/23 16:18 MCH 27.4 pg (27-33) 08/13/23 16:18 MCHC 30.7 g/dL (30-55) 08/13/23 16:18 RDW 16.7 % (12.1-15.1) H 08/13/23 16:18 Plt Count 293 10^3/cmm (157-399) 08/13/23 16:18 MPV 10.1 fL (7.4-10.4) 08/13/23 16:18 Neut % (Auto) 51.0 % 08/13/23 16:18 Lymph % (Auto) 37.2 % 08/13/23 16:18 Mineral % (Auto) 8.5 % 08/13/23 16:18 Eos % (Auto) 2.2 % 08/13/23 16:18 Baso % (Auto) 0.7 % 08/13/23 16:18 Neut # (Auto) 3.53 10^3/uL (1.8-7.7) 08/13/23 16:18 Lymph # (Auto) 2.6 10^3/uL (0.8-4.8) 08/13/23 16:18 Mineral # (Auto) 0.6 10^3/uL (0.2-0.9) 08/13/23 16:18 Eos # (Auto) 0.2 10^3/uL (0.0-0.8) 08/13/23 16:18 Baso # (Auto) 0.1 10^3/uL (0.0-0.1) 08/13/23 16:18 Nucleated RBC % (auto) 0 % 08/13/23 16:18 Nucleated RBCs # 0.0 /100WBC 08/13/23 16:18 Sodium 136 mmol/L (136-145) 08/13/23 16:18 Potassium 4.1 mmol/L (3.5-5.1) 08/13/23 16:18 Chloride 99 mmol/L (98-107) 08/13/23 16:18 Carbon Dioxide 23 mmol/L (22-29) 08/13/23 16:18 Anion Gap 18.1 (5-19) 08/13/23 16:18 BUN 20 mg/dL (6-20) 08/13/23 16:18 Creatinine 0.8 mg/dL (0.5-0.9) 08/13/23 16:18 GFR Calculation 80.7 mL/min (90-130) L 08/13/23 16:18 Glucose 128 mg/dL (65-115) H 08/13/23 16:18 Calculated Osmolality 286 mOsm/kg (285-295) 08/13/23 16:18 Calcium 9.1 mg/dL (8.5-10.5) 08/13/23 16:18 Total Bilirubin 0.2 mg/dL (0.15-1.2) 08/13/23 16:18 AST 13 U/L (0-32) 08/13/23 16:18 ALT 14 U/L (0-33) 08/13/23 16:18 Alkaline Phosphatase 76 U/L (35-105) 08/13/23 16:18 NT-Pro-B Natriuret Pep 84 pg/mL (0-125) 08/13/23 16:18 Total Protein 6.6 g/dL (6.6-8.7) 08/13/23 16:18 Albumin 4.0 g/dL (3.5-5.2) 08/13/23 16:18 Globulin 2.6 g/dL (1.3-4.6) 08/13/23 16:18 Lipase 20 U/L (13-60) 08/13/23 16:18 HCG, Qual Negative (Negative) 08/13/23 16:18 Urine Color Yellow (Yellow) 08/13/23 16:45 Urine Appearance Clear (CLEAR) 08/13/23 16:45 Urine pH 6 (5-7) 08/13/23 16:45 Ur Specific [place] 1.010 (1.005-1.030) 08/13/23 16:45 Urine Protein Neg (Negative) 08/13/23 16:45 Urine Glucose (UA) Norm (Normal) 08/13/23 16:45 Urine Ketones Negative (Negative) 08/13/23 16:45 Urine Blood Neg (Negative) 08/13/23 16:45 Urine Nitrate Negative (Negative) 08/13/23 16:45 Urine Bilirubin Neg (Negative) 08/13/23 16:45 Urine Urobilinogen Norm mg/dL (Negative) 08/13/23 16:45 Ur Leukocyte Esterase 2+ (Negative) H 08/13/23 16:45 Urine RBC Rare /hpf (0-2) 08/13/23 16:45 Urine WBC 0-4 /hpf (0-5) H 08/13/23 16:45 Ur Squamous Epith Cells 0-4 /hpf (0-5) H 08/13/23 16:45 Amorphous Sediment Not Reportable 08/13/23 16:45 Urine Bacteria Trace /hpf (NONE) 08/13/23 16:45 All radiology interpretation(s) finalized by discharge Discharge Plan Discharge Patient Disposition: Home Clinical Impression: Abdominal pain Qualifiers: Abdominal location: right upper quadrant Qualified Code(s): R10.11 - Right upper quadrant pain Condition: Stable Prescriptions: New Cipro 500 mg tablet 500 mg PO Q12H Qty: 14 0RF fluconazole 150 mg tablet 150 mg PO DAILY Qty: 1 0RF Rx Instructions: administer on day 1 of therapy No Action rizatriptan [[employer]-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] 10 mg tablet,disintegrating See Rx Instructions PO .COMPLEX Qty: 10 0RF Rx Instructions: take 1 tab at onset of headache; if no relief may repeat 1 tab after at least 2 hrs; max = 3 tabs/24 hr PO cephalexin 500 mg capsule 500 mg PO BID 10 Days Qty: 20 0RF buspirone 5 mg tablet 5 mg PO BID Qty: 60 0RF naproxen 500 mg tablet 500 mg PO BID Qty: 60 0RF hydroxyzine HCl 50 mg tablet 50 mg PO Q6H PRN (Reason: anxiety) Qty: 30 0RF Discharge Orders: Discharge ED (Routine); Ordered 08/13/23 Ordered By: Savana Zuniga Referrals: Laurel Sheikh, [employer]ATION[employer] STE[employer] ENGINEER [Primary Care Provider] - Patient Instructions: Abdominal Pain (ED) Activity Restrictions/Additional Instructions: As we discussed we will escribed antibiotics to [facility] pharmacy in [place] for treatment of a possible urinary tract infection. Your blood work overall today was unremarkable. Your CT scan was normal. I recommend you follow-up with your primary care provider or the provider through [facility]. You may return to the emergency department for worsening pain, fevers, yellowing to your skin or eyes, repetitive episodes of vomiting or diarrhea, generally feeling worse or unwell, or any other concerns you may have. I hope you begin to feel better soon. Coding Level of Care Code ED [place] Man for Omar Olmedo
[2023-08-13] MEDS: ondansetron 2 mg/ML SDV 2 mL 4 MG IVP (16:34)
[2023-08-13] MEDS: morphine 4 mg/mL SDV 1 mL IVP (16:34)
[2023-08-13 16:54] LABS: Basophils # 0.1 10^3/uL (0.0-0.1); Basophils % 0.7 %; Eosinophils # 0.2 10^3/uL (0.0-0.8); Eosinophils % 2.2 %; Hematocrit 32.3 % (36-47); Lymphocytes # 2.6 10^3/uL (0.8-4.8); Lymphocytes % 37.2 %; Mean Corpuscular HGB Conc 30.7 g/dL (30-55); Mean Corpuscular Hemoglobin 27.4 pg (27-33); Mean Corpuscular Volume 89.5 fl (85-98); Mean Platelet Volume 10.1 fL (7.4-10.4); Monocytes # 0.6 10^3/uL (0.2-0.9); Monocytes % 8.5 %; Neutrophils # 3.53 10^3/uL (1.8-7.7); Nucleated Red Blood Cells % 0 %; Platelet Count 293 10^3/cmm (157-399); Red Blood Count 3.61 10^6/uL (3.85-5.65); Red Cell Distribution Width 16.7 % (12.1-15.1); White Blood Count 6.93 10^3/uL (3.29-11.43)
[2023-08-13 17:22] LABS: HCG, Serum Qual Negative (Negative)
[2023-08-13 17:23] LABS: Alanine Aminotransferase 14 U/L (0-33); Alkaline Phosphatase 76 U/L (35-105); Anion Gap 18.1 (5-19); Aspartate Amino Transferase 13 U/L (0-32); Blood Urea Nitrogen 20 mg/dL (6-20); Calcium 9.1 mg/dL (8.5-10.5); Carbon Dioxide 23 mmol/L (22-29); Chloride 99 mmol/L (98-107); Globulin 2.6 g/dL (1.3-4.6); Glomerular Filtration Rate 80.7 mL/min (90-130); Glucose 128 mg/dL (65-115); Lipase 20 U/L (13-60); NT Pro B Type Natriuretic Pept 84 pg/mL (0-125); Osmolality Calculated 286 mOsm/kg (285-295); Potassium 4.1 mmol/L (3.5-5.1); Sodium 136 mmol/L (136-145); Total Bilirubin 0.2 mg/dL (0.15-1.2); Total Protein 6.6 g/dL (6.6-8.7)
[2023-08-13] MEDS: iohexol 350 mg/mL 500 mL Btl (per mL) IV (17:31)
[2023-08-13 17:45] LABS: Add Urine Microscopic? YES; Bacteria Urine TRACE /hpf; Bilirubin Urine Neg (Negative); Blood Urine Neg (Negative); Glucose Urine UA Norm (Normal); Ketones Urine Negative (Negative); Leukocyte Esterase Urine 2+ (Negative); Nitrate Urine Negative (Negative); Protein Urine Neg (Negative); RBC Urine RARE /hpf (0-2); Squamous Epithelial Cell Urine 0-4 /hpf (0-5); Urine Appearance Clear (CLEAR); Urine Color Yellow (Yellow); Urobilinogen Urine Norm (Negative); WBC Urine 0-4 /hpf (0-5); pH Urine 6 (5-7)
== END 2023-08-13 18:24 | disposition home or self-care (01) ==
PROVIDERS: Emergency Provider Physician Assistant; PCP Nurse Practitioner
DX: R10.11 Right upper quadrant pain (principal); F17.210 Nicotine dependence, cigarettes, uncomplicated
CPT/HCPCS: 71045; 74177; 80053; 81001; 83690; 83880; 84703; 85025; 87086; 96374; 96375; 99285; J2270; J2405; Q9967

== ENCOUNTER 2023-08-19 17:32 | Emergency (ER) | payer BC, SELFPAY ==
[2023-08-19 17:34] VITALS: BP 135/87; PULSE 117; RESP 16; TEMP 36.9; O2SAT 96; BMI 25.2
--- NOTE | 2023-08-19 17:43 | ECG_ITS ---
[facility] Test Date: 2023-08-19 Pat Name: Susan Olivarez Department: Room: Gender: Female Paper Sheeter: : 1985 Requested By: Willy Montalvo Order Number: [id number] Alexandra MD: Jesse Rutledge M.D. Measurements Intervals [place] Rate: 112 P: 56 MA: 108 QRS: 46 QRSD: 88 T: 47 QT: 338 QTc: 462 Interpretive Statements SINUS TACHYCARDIA WITH SHORT MA INTERVAL SEPTAL MYOCARDIAL INFARCTION , PROBABLY OLD [40+ ms Q WAVE IN V1/V2] No previous ECG available for comparison Electronically Signed On 08-20-2023 19:18:43 CLIENT DEVELOPMENT MANAGER by Jesse Rutledge M.D. [email or web address]
--- NOTE | 2023-08-19 17:43 | XRR_ITS ---
PROCEDURE INFORMATION: Exam: XR Chest Exam date and time: 08/19/2023 6:12 PM Age: 38 years old Clinical indication: Shortness of breath; Additional info: Cp TECHNIQUE: Imaging protocol: Radiologic exam of the chest. Views: 1 view. COMPARISON: CR XR chest 1V portable [id number] 08/13/2023 4:53 PM FINDINGS: Lungs: Unremarkable. No consolidation. Pleural spaces: Unremarkable. No pleural effusion. No pneumothorax. Heart/Mediastinum: Unremarkable. No cardiomegaly. Bones/joints: Unremarkable. XR/XR chest 1V portable [id number] IMPRESSION: No acute findings.
[2023-08-19 17:51] VITALS: BP 142/101; PULSE 114; RESP 23; O2SAT 100
[2023-08-19 18:20] LABS: Basophils % 0.5 %; Eosinophils # 0.2 10^3/uL (0.0-0.8); Hematocrit 29.7 % (36-47); Lymphocytes # 1.8 10^3/uL (0.8-4.8); Lymphocytes % 31.9 %; Mean Corpuscular HGB Conc 31.3 g/dL (30-55); Mean Corpuscular Hemoglobin 27.9 pg (27-33); Mean Corpuscular Volume 89.2 fl (85-98); Mean Platelet Volume 9.6 fL (7.4-10.4); Monocytes # 0.6 10^3/uL (0.2-0.9); Monocytes % 10.9 %; Neutrophils # 2.96 10^3/uL (1.8-7.7); Neutrophils % 52.2 %; Nucleated Red Blood Cells % 0 %; Platelet Count 283 10^3/cmm (157-399); Red Blood Count 3.33 10^6/uL (3.85-5.65); Red Cell Distribution Width 18.3 % (12.1-15.1); White Blood Count 5.68 10^3/uL (3.29-11.43)
[2023-08-19 18:35] LABS: Troponin(5th) Baseline 7 ng/L (0-10)
[2023-08-19 18:36] LABS: Alanine Aminotransferase 17 U/L (0-33); Albumin Level 4.1 g/dL (3.5-5.2); Alkaline Phosphatase 75 U/L (35-105); Anion Gap 18.2 (5-19); Aspartate Amino Transferase 17 U/L (0-32); Blood Urea Nitrogen 16 mg/dL (6-20); Carbon Dioxide 24 mmol/L (22-29); Chloride 101 mmol/L (98-107); Globulin 2.5 g/dL (1.3-4.6); Glomerular Filtration Rate 94.2 mL/min (90-130); Glucose 102 mg/dL (65-115); Lipase 20 U/L (13-60); Osmolality Calculated 289 mOsm/kg (285-295); Potassium 4.2 mmol/L (3.5-5.1); Sodium 139 mmol/L (136-145); Total Bilirubin 0.2 mg/dL (0.15-1.2); Total Protein 6.6 g/dL (6.6-8.7)
--- NOTE | 2023-08-19 18:37 | ED_ITS ---
HPI - Abdominal Pain 2 General: Chief Complaint: Abdominal Pain Stated Complaint: chest pains, abd pain Time Seen by Provider: 08/19/23 17:51 History of Present Illness: Patient presents to the ER with complaints of abdominal pain bloating is radiating up into her chest. Patient states this all started about 2 weeks ago. Patient's last menstrual period was on 1015 however she is currently spotting x 4 days but she said she normally is a very high flow heavy bleeder. Patient does states she had some positive test in the last few weeks but also has had some negative test in the last few weeks. She also has bilateral leg foot swelling and abdominal swelling. Patient says lying flat or exerting herself makes her shortness of breath worse. Patient says she is gained 20 or 30 pounds over the last several weeks without trying. She thinks is all water weight gain. Patient was seen approximately week ago in this ER diagnosed with a UTI and put on ciprofloxacin. 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 Related Data: Date of Last Menstrual Period: 06/13/23 Review of Systems 2 General: Reports: 10 or more systems reviewed and unremarkable except in HPI and below PFSH ED 2 PFSH: Medical History Psychiatric care History of uterine fibroid Family History Father Cancer kidney and lungs, blood Clotting disorder Chronic kidney disease (CKD) Heart disease Diabetes Grandfather Cancer blood, bones, and lungs Grandmother Clotting disorder Heart disease maternal and paternal Diabetes paternal Mother Heart disease Denies family history of Bleeding disorder Stroke Social History Smoking and tobacco/nicotine status: current every day tobacco/nicotine user (1/2 PPD) Quit status (tobacco/nicotine): not considering quitting Second hand smoke exposure: No Alcohol intake: current Alcohol intake frequency: holidays/special occasions only Substance/Drug Use: former Female Reproductive History: Date of last menstrual period: 06/13/23 S pontaneous abortions: No Physical Exam 2 Const: COMMON NORMALS: no acute distress, average body habitus, patient oriented x3, no limitations, healthy appearing, alert and well nourished HENMT: COMMON NORMALS: normocephalic, atraumatic, hearing grossly normal bilaterally, external ears normal, Normal external nose present, moist oral mucous membranes and oropharynx normal HEAD & SCALP: normocephalic and atraumatic NOSE: Normal external nose present EXTERNAL EAR: Yes external ears normal Eye: COMMON NORMALS: Equal, round and reactive pupils present, EOMs intact bilaterally, conjunctivae normal and no scleral icterus CONJUNCTIVA: Yes conjunctivae normal PUPIL: Yes Equal, round and reactive pupils present Neck/C-Spine: COMMON NORMALS: full ROM, no lymphadenopathy, supple, no meningeal signs, no JVD and Thyroid normal THYROID: Thyroid normal Chest: COMMONS NORMALS: normal inspection of the chest and normal palpation of entire chest wall Resp: COMMON NORMALS: normal respiratory effort, No retractions, No use of accessory muscles and clear to auscultation bilaterally AUSCULTATION: clear to auscultation bilaterally Cardio: COMMON NORMALS: no JVD, regular rhythm, S1 normal heart sound present, S2 normal heart sound present, No gallops present (Cardio), No clicks present (Cardio), No murmurs present (Cardio) and No rub (Cardio); negative for regular rate (Tachycardic) RATE: abnormal rate (Tachycardic) RHYTHM: regular rhythm HEART SOUNDS: S1 normal heart sound present and S2 normal heart sound present GI: COMMON NORMALS: Normal to inspection, nondistended, normoactive bowel sounds present, Soft to palpation, non-tender, No hepatosplenomegaly present and no masses PALPATION: Yes Soft to palpation and Yes No hepatosplenomegaly present Neuro: COMMON NORMALS: patient oriented x3 SENSORIUM/ORIENTATION: Yes alert MENINGEAL SIGNS: Yes no meningeal signs Course 2 Vital Signs: Vital signs: Vital Signs Temperature 98.4 F 08/19/23 17:34 Pulse Rate 108 H 08/19/23 20:07 Respiratory Rate 23 H 08/19/23 17:51 Blood Pressure 145/90 08/19/23 20:07 Pulse Oximetry 98 08/19/23 20:07 Oxygen Delivery Me thod Room Air 08/19/23 20:07 MDM - Abdominal Pain Medical Decision Making Patient was worked up with lab work which was essentially benign except for patient's mild anemia which patient knew about. Patient was given 40 mg Lasix IV and diuresed multiple times in the ER and was already feeling better. Patient's findings was discussed with the patient and she told to follow-up with her PCP within the next week and she will be provided with a 5 days of Lasix to use on an as-needed basis for the fluid. Differential Diagnosis Likely abdominal pain; Unlikely acute appendicitis, calculus of kidney, constipation, diverticulitis, endometriosis, gastroenteritis, pancreatitis or small bowel obstruction Medical Records I reviewed the patient's medical records. Lab Data I reviewed the patient's lab results. 08/19/23 17:58 08/19/23 17:58 Labs/Radiology: Radiology Impressions Chest X-Ray 08/19/23 17:43 IMPRESSION: No acute findings. Laboratory Results WBC 5.68 10^3/uL (3.29-11.43) 08/19/23 17:58 RBC 3.33 10^6/uL (3.85-5.65) L 08/19/23 17:58 Hgb 9.30 g/dL (11.27-16.99) L 08/19/23 17:58 Hct 29.7 % (36-47) L 08/19/23 17:58 MCV 89.2 fl (85-98) 08/19/23 17:58 MCH 27.9 pg (27-33) 08/19/23 17:58 MCHC 31.3 g/dL (30-55) 08/19/23 17:58 RDW 18.3 % (12.1-15.1) H 08/19/23 17:58 Plt Count 283 10^3/cmm (157-399) 08/19/23 17:58 MPV 9.6 fL (7.4-10.4) 08/19/23 17:58 Neut % (Auto) 52.2 % 08/19/23 17:58 Lymph % (Auto) 31.9 % 08/19/23 17:58 [place] % (Auto) 10.9 % 08/19/23 17:58 Eos % (Auto) 4.0 % 08/19/23 17:58 Baso % (Auto) 0.5 % 08/19/23 17:58 Neut # (Auto) 2.96 10^3/uL (1.8-7.7) 08/19/23 17:58 Lymph # (Auto) 1.8 10^3/uL (0.8-4.8) 08/19/23 17:58 [place] # (Auto) 0.6 10^3/uL (0.2-0.9) 08/19/23 17:58 Eos # (Auto) 0.2 10^3/uL (0.0-0.8) 08/19/23 17:58 Baso # (Auto) 0.0 10^3/uL (0.0-0.1) 08/19/23 17:58 Nucleated RBC % (auto) 0 % 08/19/23 17:58 Nucleated RBCs # 0.0 /100WBC 08/19/23 17:58 Sodium 139 mmol/L (136-145) 08/19/23 17:58 Potassium 4.2 mmol/L (3.5-5.1) 08/19/23 17:58 Chloride 101 mmol/L (98-107) 08/19/23 17:58 Carbon Dioxide 24 mmol/L (22-29) 08/19/23 17:58 Anion Gap 18.2 (5-19) 08/19/23 17:58 BUN 16 mg/dL (6-20) 08/19/23 17:58 Creatinine 0.7 mg/dL (0.5-0.9) 08/19/23 17:58 GFR Calculation 94.2 mL/min (90-130) 08/19/23 17:58 Glucose 102 mg/dL (65-115) 08/19/23 17:58 Calculated Osmolality 289 mOsm/kg (285-295) 08/19/23 17:58 Calcium 9.0 mg/dL (8.5-10.5) 08/19/23 17:58 Total Bilirubin 0.2 mg/dL (0.15-1.2) 08/19/23 17:58 AST 17 U/L (0-32) 08/19/23 17:58 ALT 17 U/L (0-33) 08/19/23 17:58 Alkaline Phosphatase 75 U/L (35-105) 08/19/23 17:58 Troponin T Baseline 7 ng/L (0-10) 08/19/23 17:58 Troponin T 120 Minute 6.00 ng/L (0-10) 08/19/23 19:53 Delta Troponin T -1.00 ABS# (0-10) L 08/19/23 19:53 NT-Pro-B Natriuret Pep 147 pg/mL (0-125) H 08/19/23 17:58 Total Protein 6.6 g/dL (6.6-8.7) 08/19/23 17:58 Albumin 4.1 g/dL (3.5-5.2) 08/19/23 17:58 Globulin 2.5 g/dL (1.3-4.6) 08/19/23 17:58 Lipase 20 U/L (13-60) 08/19/23 17:58 HCG, Qual Negative (Negative) 08/19/23 17:58 Urine Color Yellow (Yellow) 08/19/23 18:35 Urine Appearance Clear (CLEAR) 08/19/23 18:35 Urine pH 7 (5-7) 08/19/23 18:35 Ur Specific [place] 1.015 (1.005-1.030) 08/19/23 18:35 Urine Protein Neg (Negative) 08/19/23 18:35 Urine Glucose (UA) Norm (Normal) 08/19/23 18:35 Urine Ketones Negative (Negative) 08/19/23 18:35 Urine Blood Neg (Negative) 08/19/23 18:35 Urine Nitrate Negative (Negative) 08/19/23 18:35 Urine Bilirubin Neg (Negative) 08/19/23 18:35 Urine Urobilinogen Norm mg/dL (Negative) 08/19/23 18:35 Ur Leukocyte Esterase 1+ (Negative) H 08/19/23 18:35 Urine RBC None /hpf (0-2) 08/19/23 18:35 Urine WBC 0-4 /hpf (0-5) H 08/19/23 18:35 Ur Squamous Epith Cells Rare /hpf (0-5) 08/19/23 18:35 Amorphous Sediment Not Reportable 08/19/23 18:35 Urine Bacteria None /hpf (NONE) 08/19/23 18:35 Urine Mucus None /hpf 08/19/23 18:35 Urine Opiates Screen Negative ng/mL (Negative) 08/19/23 18:35 Ur Barbiturates Screen Negative ng/mL (Negative) 08/19/23 18:35 Ur Phencyclidine Scrn Negative ng/mL (Negative) 08/19/23 18:35 Ur Amphetamines Screen Negative ng/mL (Negative) 08/19/23 18:35 U Benzodiazepines Scrn Negative ng/mL (Negative) 08/19/23 18:35 Urine Cocaine Screen Negative ng/mL (Negative) 08/19/23 18:35 U Marijuana (THC) Screen Negative ng/mL (Negative) 08/19/23 18:35 All radiology interpretation(s) finalized by discharge EKG Data EKG 1: I personally reviewed and interpreted this EKG as follows: EKG interpretation date: 08/19/23 EKG interpretation time: 18:00 Prior EKG tracings: not available for review Interpretation: EKG showed ventricular rate 112 bpm, AL interval 108, QRS duration 88, QTc of 404, sinus tachycardia with short AL interval EKG 2: I personally reviewed and interpreted this EKG as follows: EKG interpretation date: 08/19/23 EKG interpretation time: 19:59 Prior EKG tracings: available for review Interpretation: EKG shows ventricular rate 103 bpm, AL interval 132, QRS duration 79, QTc of 410, sinus tachycardia Discharge Plan Discharge Patient Disposition: Home Clinical Impression: Edema Qualifiers: Edema type: unspecified Qualified Code(s): R60.9 - Edema, unspecified Condition: Stable Prescriptions: New Lasix 20 mg tablet 20 mg PO QAM Qty: 5 0RF No Action rizatriptan [Maxalt-MARZIPAN MOLDER] 10 mg tablet,disintegrating See Rx Instructions PO .COMPLEX Qty: 10 0RF Rx Instructions: take 1 tab at onset of headache; if no relief may repeat 1 tab after at least 2 hrs; max = 3 tabs/24 hr PO hydrochlorothiazide 25 mg tablet 12.5 mg PO BID Qty: 14 0RF buspirone 5 mg tablet 5 mg PO BID Qty: 60 0RF naproxen 500 mg tablet 500 mg PO BID Qty: 60 0RF hydroxyzine HCl 50 mg tablet 50 mg PO Q6H PRN (Reason: anxiety) Qty: 30 0RF Cipro 500 mg tablet 500 mg PO Q12H Qty: 14 0RF fluconazole 150 mg tablet 150 mg PO DAILY Qty: 1 0RF Rx Instructions: administer on day 1 of therapy Discharge Orders: Discharge ED (Routine); Ordered 08/19/23 Ordered By: Dwayne Hudson Referrals: Laurel Sheikh FNP [Primary Care Provider] - 1 week Patient Instructions: Edema (ED) Activity Restrictions/Additional Instructions: Please take the Lasix first thing in the morning for the next 5 days as needed for fluid. Please follow-up with your family practice physician for further evaluation testing as needed. Coding Level of Care Code ED [employer] Miller for Omar Olmedo
[2023-08-19 18:49] VITALS: BP 151/116; PULSE 110; O2SAT 99
[2023-08-19 18:51] LABS: HCG, Serum Qual Negative (Negative)
--- NOTE | 2023-08-19 18:59 | PC.NURSE ---
Report taken from Ellen at this time.
[2023-08-19 19:10] LABS: NT Pro B Type Natriuretic Pept 147 pg/mL (0-125)
[2023-08-19 19:36] LABS: Add Urine Microscopic? YES; Bilirubin Urine Neg (Negative); Blood Urine Neg (Negative); Glucose Urine UA Norm (Normal); Ketones Urine Negative (Negative); Leukocyte Esterase Urine 1+ (Negative); Nitrate Urine Negative (Negative); Protein Urine Neg (Negative); Specific Gravity, Urine 1.015 (1.005-1.030); Urine Appearance Clear (CLEAR); Urine Color Yellow (Yellow); Urobilinogen Urine Norm (Negative); pH Urine 7 (5-7)
--- NOTE | 2023-08-19 19:43 | ECG_ITS ---
[facility] Test Date: 2023-08-19 Pat Name: Susan Olivarez Department: Room: Gender: Female Gravity Manager: : 1985 Requested By: Willy Montalvo Order Number: [id number] Alexandra MD: Jesse Rutledge M.D. Measurements Intervals [place] Rate: 103 P: 63 ME: 132 QRS: 54 QRSD: 79 T: 50 QT: 350 QTc: 460 Interpretive Statements SINUS TACHYCARDIA SEPTAL MYOCARDIAL INFARCTION , PROBABLY OLD [40+ ms Q WAVE IN V1/V2] Compared to ECG 08/19/2023 17:37:42 Short ME interval no longer present Myocardial infarct finding still present Electronically Signed On 08-20-2023 19:38:19 LEGAL MANAGER by Jesse Rutledge M.D. [id number]
[2023-08-19 19:44] LABS: Add Urine Culture? No; Squamous Epithelial Cell Urine RARE /hpf (0-5); WBC Urine 0-4 /hpf (0-5)
[2023-08-19 19:45] LABS: Amphetamines Screen Urine Negative (Negative); Barbiturates Screen Urine Negative (Negative); Benzodiazepines Screen Urine Negative (Negative); Cocaine Screen Urine Negative (Negative); Opiate Screen Urine Negative (Negative); PCP Screen Urine Negative (Negative); THC Screen Urine Negative (Negative)
[2023-08-19] MEDS: ketorolac 30 mg/mL INJ IVP (20:00)
[2023-08-19] MEDS: FUROsemide 10 mg/mL SDV 4mL 40 MG IVP (20:01)
[2023-08-19 20:07] VITALS: BP 145/90; PULSE 108; O2SAT 98
[2023-08-19 21:01] VITALS: BP 120/93; PULSE 102; RESP 18; O2SAT 95
== END 2023-08-19 21:04 | disposition home or self-care (01) ==
PROVIDERS: Emergency Medicine; Emergency Provider Emergency Medicine; PCP Nurse Practitioner
DX: R60.9 Edema, unspecified (principal); F17.210 Nicotine dependence, cigarettes, uncomplicated
CPT/HCPCS: 36415; 71045; 80053; 80306; 81001; 83690; 83880; 84484; 84703; 85025; 93005; 96374; 96375; 99285; J1885; J1940

== ENCOUNTER → 2023-08-24 12:26 | Outpatient (BNVA) | payer BC, SELFPAY | PROVIDERS: PCP Nurse Practitioner; Visit Provider Registered Nurse Neonatal Intensive Care | DX: J02.9 Acute pharyngitis, unspecified (principal) | CPT/HCPCS: 87880 ==

== ENCOUNTER 2024-11-18 13:18 | Emergency (ER) | payer SELFPAY ==
[2024-11-18 13:19] VITALS: BP 118/65; PULSE 95; RESP 18; TEMP 36.6; O2SAT 100; BMI 21.7
--- NOTE | 2024-11-18 13:42 | ECG_ITS ---
[facility] Test Date: 2024-11-18 Pat Name: Susan Olivarez Department: Room: Gender: Female Surveillance Technician: : 1985 Requested By: Aashish Pak Order Number: [id number] Alexandra MD: Jesse Rutledge M.D. Measurements Intervals [place] Rate: 82 P: 78 [place]: 128 QRS: 97 QRSD: 81 T: 65 QT: 414 QTc: 484 Interpretive Statements SINUS RHYTHM BORDERLINE RIGHT AXIS DEVIATION [QRS AXIS > 90] Compared to ECG 08/19/2023 19:59:50 Sinus tachycardia no longer present Myocardial infarct finding no longer present Electronically Signed On 11-19-2024 22:46:29 CDT by Jesse Rutledge M.D. [email or web address] [id number]
--- NOTE | 2024-11-18 13:43 | W.ED.PSYCHS ---
HPI - Psych General: Chief Complaint: Psychiatric Symptoms Stated Complaint: mhe Time Seen by Provider: 11/18/24 13:24 History of Present Illness: 39-year-old female presents to the emergency department chief complaint of taking about 6 Benadryl prior to arrival due to her anxiety symptoms as well as drinking about 3 shots of hard liquor. Patient reports she has history of rage as well as psychiatric issues has been quite sometime since she has seen body for them she denies any current thoughts of homicide or suicide. Patient presents to the ER with by ambulance for further assessment and management. Patient denies any recent drugs or alcohol or any other associated symptoms. Associated symptoms: Reports depression; Deny homicidal ideation or suicidal ideation Related Data Home Medications ?Medication ?Instructions ?Recorded ?Confirmed No Known Home Medications 11/18/24 11/18/24 Allergies Allergy/AdvReac Type Severity Reaction Status Date / Time codeine Allergy Unknown unknown Verified 06/27/24 10:45 tramadol Allergy Unknown unknown Verified 06/27/24 10:45 magnesium Allergy unk Verified 06/27/24 10:45 Review of Systems General: Reports: 10 or more systems reviewed and unremarkable except in HPI and below Const: Denies: fever(s), chills, fatigue or malaise Eyes: Denies: change in vision or blurry vision Card: Denies: chest pain or palpitations Resp: Denies: dyspnea or productive cough GI: Denies: abdominal pain, nausea or vomiting : Denies: flank pain Musc: Denies: extremity pain or extremity swelling Skin/Breast: Denies: rash or pruritus Neuro: Denies: headache(s) Psych: Reports: anxiety, depression and mood swings; Denies: tactile hallucinations, suicidal ideation or homicidal ideation [place]/Lymph: Denies: easy bleeding All/Imm: Denies: urticaria, throat swelling or facial swelling PFSH ED PFSH: Medical History History of uterine fibroid Family History Father Cancer kidney and lungs, blood Clotting disorder Chronic kidney disease (CKD) Heart disease Diabetes Grandfather Cancer blood, bones, and lungs Grandmother Clotting disorder Heart disease maternal and paternal Diabetes paternal Mother Heart disease Denies family history of Bleeding disorder Stroke Social History Smoking and tobacco/nicotine status: former use of tobacco/nicotine Quit status (tobacco/nicotine): not considering quitting Second hand smoke exposure: No Alcohol intake: current Alcohol intake frequency: holidays/special occasions only Substance/Drug Use: former Female Reproductive History: Spontaneous abortions: No Physical Exam Const: COMMON NORMALS: no acute distress, patient oriented x3 and healthy appearing (Smell of EtOH appreciated on breath.) HENMT: COMMON NORMALS: normocephalic and atraumatic HEAD & SCALP: normocephalic and atraumatic Eye: COMMON NORMALS: Equal, round and reactive pupils present and EOMs intact bilaterally PUPIL: Yes Equal, round and reactive pupils present Neck/C-Spine: COMMON NORMALS: full ROM, supple and no JVD Lymph: LYMPHATIC: no lymphadenopathy noted Chest: COMMONS NORMALS: normal inspection of the chest and normal palpation of entire chest wall Resp: COMMON NORMALS: normal respiratory effort, No retractions and clear to auscultation bilaterally EFFORT & INSPECTION: Yes able to speak in complete sentences and Yes symmetric chest movement AUSCULTATION: clear to auscultation bilaterally Cardio: COMMON NORMALS: no JVD, regular rate and regular rhythm RATE: regular rate RHYTHM: regular rhythm GI: COMMON NORMALS: Normal to inspection, nondistended, normoactive bowel sounds present, Soft to palpation and non-tender INSPECTION: Yes normal to inspection PALPATION: Yes Soft to palpation : COMMON NORMALS: Yes no CVA tenderness BLADDER/KIDNEY EXAM: Yes no CVA tenderness Back/Pelvis: COMMON NORMALS: no CVA tenderness Extremity: COMMON NORMALS: normal to inspection and full ROM Neuro: COMMON NORMALS: patient oriented x3, CN's II-XII intact bilaterally, moves all extremities and no focal motor deficits Psych: COMMON NORMALS: mental status grossly normal, Normal thought process present, cooperative, normal affect, denies homicidal ideation and denies suicidal ideation THOUGHT PROCESS: Normal thought process present Skin: COMMON NORMALS: no rashes or lesions noted GENERAL SKIN EXAM: no rashes or lesions noted Course Vital Signs: Vital signs: Vital Signs Temperature 97.9 F 11/18/24 13:19 Pulse Rate 102 H 11/18/24 15:53 Respiratory Rate 18 11/18/24 15:53 Blood Pressure 118/65 11/18/24 13:19 Pulse Oximetry 97 11/18/24 15:53 Oxygen Delivery Me thod Room Air 11/18/24 13:19 MDM - Psych Medical Decision Making To the context of the patient taking too much Benadryl will be contacting poison control for further recommendations patient test that she normally takes up to 4-6 Benadryl at a time for her depression and rage like symptoms advised patient this is not totally appropriate for her care in which it was recommended that she have outpatient treatment with therapy and psychiatry. Patient currently denies any homicidal suicidal thoughts or ideations or any other associated symptoms. Patient was reassessed at 1800 patient is not suicidal or homicidal has no intent she is out of the boundaries of the concerns of any adverse reactions based upon the Benadryl use that she had taken. Patient is requesting some outpatient referral for psychiatry and/or therapy will be providing her behavioral health follow-up did advise for her to return the interim if any of her symptoms persist or worse. Lab Data 11/18/24 13:38 11/18/24 13:38 Laboratory Results WBC 8.12 10^3/uL (3.29-11.43) 11/18/24 13:38 RBC 3.59 10^6/uL (3.85-5.65) L 11/18/24 13:38 Hgb 10.60 g/dL (11.27-16.99) L 11/18/24 13:38 Hct 33.4 % (36-47) L 11/18/24 13:38 MCV 93.0 fl (85-98) 11/18/24 13:38 MCH 29.5 pg (27-33) 11/18/24 13:38 MCHC 31.7 g/dL (30-55) 11/18/24 13:38 RDW 13.6 % (12.1-15.1) 11/18/24 13:38 Plt Count 317 10^3/cmm (157-399) 11/18/24 13:38 MPV 9.5 fL (7.4-10.4) 11/18/24 13:38 Neut % (Auto) 73.9 % 11/18/24 13:38 Lymph % (Auto) 18.1 % 11/18/24 13:38 [place] % (Auto) 7.0 % 11/18/24 13:38 Eos % (Auto) 0.2 % 11/18/24 13:38 Baso % (Auto) 0.6 % 11/18/24 13:38 Neut # (Auto) 5.99 10^3/uL (1.8-7.7) 11/18/24 13:38 Lymph # (Auto) 1.5 10^3/uL (0.8-4.8) 11/18/24 13:38 [place] # (Auto) 0.6 10^3/uL (0.2-0.9) 11/18/24 13:38 Eos # (Auto) 0.0 10^3/uL (0.0-0.8) 11/18/24 13:38 Baso # (Auto) 0.1 10^3/uL (0.0-0.1) 11/18/24 13:38 Nucleated RBC % (auto) 0 % 11/18/24 13:38 Nucleated RBCs # 0.0 /100WBC 11/18/24 13:38 Sodium 138 mmol/L (136-145) 11/18/24 13:38 Potassium 3.8 mmol/L (3.5-5.1) 11/18/24 13:38 Chloride 104 mmol/L (98-107) 11/18/24 13:38 Carbon Dioxide 20 mmol/L (22-29) L 11/18/24 13:38 Anion Gap 17.8 (5-19) 11/18/24 13:38 BUN 14 mg/dL (6-20) 11/18/24 13:38 Creatinine 0.6 mg/dL (0.5-0.9) 11/18/24 13:38 GFR Calculation 111.9 mL/min (90-130) 11/18/24 13:38 Glucose 83 mg/dL (65-115) 11/18/24 13:38 POC Glucose 85 mg/dL (70-110) 11/18/24 13:52 Calculated Osmolality 286 mOsm/kg (285-295) 11/18/24 13:38 Calcium 8.7 mg/dL (8.5-10.5) 11/18/24 13:38 Magnesium 1.7 mg/dL (1.7-2.3) 11/18/24 13:38 Total Bilirubin 0.6 mg/dL (0.15-1.2) 11/18/24 13:38 AST 77 U/L (0-32) H 11/18/24 13:38 ALT 51 U/L (0-33) H 11/18/24 13:38 Alkaline Phosphatase 98 U/L (35-105) 11/18/24 13:38 Total Protein 6.7 g/dL (6.6-8.7) 11/18/24 13:38 Albumin 4.1 g/dL (3.5-5.2) 11/18/24 13:38 Globulin 2.6 g/dL (1.3-4.6) 11/18/24 13:38 Urine Color Dark yellow (Yellow) A 11/18/24 13:48 Urine Appearance Cloudy (CLEAR) A 11/18/24 13:48 Urine pH 5.5 (5-7) 11/18/24 13:48 Ur Specific [place] 1.022 (1.005-1.030) 11/18/24 13:48 Urine Protein Trace (Negative) A 11/18/24 13:48 Urine Glucose (UA) Negative (Normal) 11/18/24 13:48 Urine Ketones 1+ (Negative) H 11/18/24 13:48 Urine Blood 2+ (Negative) A 11/18/24 13:48 Urine Nitrate Positive (Negative) A 11/18/24 13:48 Urine Bilirubin Negative (Negative) 11/18/24 13:48 Urine Urobilinogen 0.2 mg/dL (Negative) 11/18/24 13:48 Ur Leukocyte Esterase 2+ (Negative) A 11/18/24 13:48 Urine RBC 0-2 /hpf (0-2) 11/18/24 13:48 Urine WBC 21-50 /hpf (0-5) H 11/18/24 13:48 Ur Squamous Epith Cells 11-20 /hpf (0-5) H 11/18/24 13:48 Amorphous Sediment Not Reportable 11/18/24 13:48 Urine Bacteria 4+ /hpf (NONE) H 11/18/24 13:48 Hyaline Casts 1.65 /lpf 11/18/24 13:48 Salicylates < 0.3 mg/dL (3-10) L 11/18/24 13:38 Urine Opiates Screen Negative ng/mL (Negative) 11/18/24 13:48 Acetaminophen < 5.0 ug/mL (10-30) L 11/18/24 13:38 Ur Barbiturates Screen Negative ng/mL (Negative) 11/18/24 13:48 Ur Phencyclidine Scrn Negative ng/mL (Negative) 11/18/24 13:48 Ur Amphetamines Screen Positive ng/mL (Negative) H 11/18/24 13:48 U Benzodiazepines Scrn Negative ng/mL (Negative) 11/18/24 13:48 Urine Cocaine Screen Negative ng/mL (Negative) 11/18/24 13:48 U Marijuana (THC) Screen Negative ng/mL (Negative) 11/18/24 13:48 Ethyl Alcohol < 10 mg/dL (0-10) 11/18/24 13:38 All radiology interpretation(s) finalized by discharge Discharge Plan Discharge Patient Disposition: Home Clinical Impression: Polysubstance abuse, Depression, Anxiety Condition: Stable Prescriptions: No Action No Known Home Medications Discharge Orders: Discharge ED (Routine); Ordered 11/18/24 Ordered By: Aashish Pak Referrals: Lolita Villagomez APRN [Nurse Practitioner] - Discharge Diet: Advance as tolerated Discharge Activity: Increase activity as tolerated Activity Restrictions/Additional Instructions: Please further follow-up with [facility] Behavioral health for further evaluation and management of your current mental health concerns please return the interim if any of your symptoms persist or worse. Print Language: [place] Coding Level of Care Code ED Executive [employer] Ac[employer] Consultant for Omar Olmedo
[2024-11-18] MEDS: sodium chloride 0.9% 1,000 ML 999 ML IV (13:47)
[2024-11-18 13:48] LABS: Basophils # 0.1 10^3/uL (0.0-0.1); Basophils % 0.6 %; Eosinophils % 0.2 %; Hematocrit 33.4 % (36-47); Lymphocytes # 1.5 10^3/uL (0.8-4.8); Lymphocytes % 18.1 %; Mean Corpuscular HGB Conc 31.7 g/dL (30-55); Mean Corpuscular Hemoglobin 29.5 pg (27-33); Mean Platelet Volume 9.5 fL (7.4-10.4); Monocytes # 0.6 10^3/uL (0.2-0.9); Neutrophils # 5.99 10^3/uL (1.8-7.7); Neutrophils % 73.9 %; Nucleated Red Blood Cells % 0 %; Platelet Count 317 10^3/cmm (157-399); Red Blood Count 3.59 10^6/uL (3.85-5.65); Red Cell Distribution Width 13.6 % (12.1-15.1); White Blood Count 8.12 10^3/uL (3.29-11.43)
[2024-11-18 13:55] LABS: Glucose Point of Care 85 mg/dL (70-110)
[2024-11-18 13:56] LABS: Bilirubin Urine Negative (Negative); Blood Urine 2+ (Negative); Glucose Urine UA Negative (Normal); Ketones Urine 1+ (Negative); Leukocyte Esterase Urine 2+ (Negative); Nitrate Urine Positive (Negative); Protein Urine Trace (Negative); Specific Gravity, Urine 1.022 (1.005-1.030); Urine Appearance Cloudy (CLEAR); Urine Color Dark Yellow (Yellow); Urobilinogen Urine 0.2 mg/dL (Negative); pH Urine 5.5 (5-7)
[2024-11-18 13:59] LABS: Add Urine Microscopic? YES; Bacteria Urine 4+ /hpf; Hyaline Casts Urine 1.65 /lpf; RBC Urine 0-2 /hpf (0-2); WBC Urine 21-50 /hpf (0-5)
[2024-11-18 14:04] LABS: Acetaminophen < 5.0 ug/mL (10-30); Alanine Aminotransferase 51 U/L (0-33); Albumin Level 4.1 g/dL (3.5-5.2); Alcohol Level < 10 mg/dL (0-10); Alkaline Phosphatase 98 U/L (35-105); Anion Gap 17.8 (5-19); Aspartate Amino Transferase 77 U/L (0-32); Blood Urea Nitrogen 14 mg/dL (6-20); Calcium 8.7 mg/dL (8.5-10.5); Carbon Dioxide 20 mmol/L (22-29); Chloride 104 mmol/L (98-107); Creatinine Clr Calc Pharmacy 133.2435; Globulin 2.6 g/dL (1.3-4.6); Glomerular Filtration Rate 111.9 mL/min (90-130); Glucose 83 mg/dL (65-115); Osmolality Calculated 286 mOsm/kg (285-295); Potassium 3.8 mmol/L (3.5-5.1); Salicylate < 0.3 mg/dL (3-10); Sodium 138 mmol/L (136-145); Total Bilirubin 0.6 mg/dL (0.15-1.2); Total Protein 6.7 g/dL (6.6-8.7)
[2024-11-18 14:12] LABS: Amphetamines Screen Urine Positive (Negative); Barbiturates Screen Urine Negative (Negative); Benzodiazepines Screen Urine Negative (Negative); Cocaine Screen Urine Negative (Negative); Opiate Screen Urine Negative (Negative); PCP Screen Urine Negative (Negative); THC Screen Urine Negative (Negative)
[2024-11-18] MEDS: sulfamethoxazole-trimeth DS 160-800 mg Tablet 1 TAB PO (14:22)
--- NOTE | 2024-11-18 14:27 | PC.NURSE ---
per Poison Control states would be expected for pt to tolerate Benadryl well, even if 50mg tabs, especially d/t the 12 tabs splint into two different ingestions. PC states usual peak is 7-8 hours; first dose should have worn off at time of second dose. Benadryl OD usually presents with anticholinergic symptoms; QT prolongation; more severe symptoms could be agitation and PC recommend benzodiazepines total recommends 4-6 hrs obs
[2024-11-18 15:53] VITALS: PULSE 102; RESP 18; O2SAT 97
--- NOTE | 2024-11-18 16:31 | PC.NURSE ---
Addendum entered by Dyana Vega RN 11/18/24 16:35: PC states would be babb to repeat EKG Original Note: poison control states: keeping magnesium and potassium higher range of normal d/t QT prolongation; PC requesting mag level to be drawn.
[2024-11-18 16:58] LABS: Magnesium 1.7 mg/dL (1.7-2.3)
[2024-11-18] MEDS: potassium chloride ER 20 mEq Tablet 40 MEQ PO (17:00)
[2024-11-18 18:14] VITALS: BP 121/79; PULSE 102; O2SAT 98
[2024-11-18 20:49] VITALS: PULSE 958; RESP 16; O2SAT 98
== END 2024-11-18 20:56 | disposition home or self-care (01) ==
PROVIDERS: Emergency Provider Emergency Medicine
DX: F19.10 Other psychoactive substance abuse, uncomplicated (principal); F32.A Depression, unspecified; F41.9 Anxiety disorder, unspecified; Z87.891 Personal history of nicotine dependence
CPT/HCPCS: 36416; 80053; 80306; 80307; 81001; 82962; 83735; 85025; 93005; 96360; 96361; 99284; J7030; J9999

== ENCOUNTER 2025-03-08 15:32 | Emergency (ER) | payer SELFPAY ==
--- OUTSIDE RECORDS SUMMARY | 2018-07-11 08:45 | XMS_ITS | Continuity of Care Document ---
Author Organization [facility] Address [address] [id number] [address] Phone Care Team Providers Care Supervisor [employer] Name Role Phone Ezra Griffin NP Unavailable Unavailable Allergies, Adverse Reactions, Alerts Substance Reaction Status Criticality TRAMADOL HCL Active No Information codeine Active No Information Problems Condition Type Effective Dates (start - stop) Clini mattie Status Comments No Known Problems Procedures Procedure Date NO CHARGE Finalize Template Workaround Behavioral Health Consult OFFICE/OUTPATIENT VISIT, NEW URINALYSIS AUTO W/O SCOPE COMPLETE CBC W/AUTO DIFF WBC COMPREHEN METABOLIC PANEL HEPATITIS B SURFACE AG EIA HEPATITIS C AB TEST HCV, RNA, PCR, QN Rfx [place] ROUTINE VENIPUNCTURE HEP B CORE AB, TOT Advance Directives Directive Yes / No Effective Date File Name No Information Encounters Encounter Description Practice Location Reason(s) For Visit Diagnoses Date Provider Providers Copied on Encounter [facility], [id number] [place], [place], [id number], [place] tel:[phone] [facility] No Information 8 Gaby Munguia. [address] [place], [address], [place]. tel:[phone] [facility], [id number] [place], [id number], [place] tel:[phone] [facility] No Information 8 Gaby Munguia. [address] [place], [address], [place]. tel:[phone] Referring Provider: Ezra Griffin, [address] [place], [address]. tel:[phone] [facility], [id number], [id number], [place] tel:[phone] [facility] Other specified counseling No Information OFFICE/OUTPAT IENT VISIT, [facility], [id number] [place], [id number], [place] tel:[phone] [facility] ETOH (chief complaint) depression (chief complaint) Hepatitis C Gaby Munguia. [address] [place], [address], [place]. tel:[phone] Referring Provider: Ezra Griffin, [address] [place], [address]. tel:[phone] As per patient privacy policy some of the clinical information may not be visible. Family History Family Member Type Diagnosis Age At Onset No Information Payers Payer name Insurance type Covered alliance party ID Authoriza tinathalie(s) No Information Social History Type Description Quantity Date Captured Comments Sex Female Smoking Status No Information Chief Complaint And Reason For Visit No Information Reason For Referral Reason For Referral No Information Plan Of Treatment Date Type Action Status Goal Tobacco cessation counseling completed Goal Dietary manageme nt education, guidance, and counseling completed Future Order: Lab Order AFP, Ser um, Tumor Marker ([id number]), Sent on: Sent Future Order: Lab Order Vitamin D 25-OH ([id number]), Sent on: Sent Future Order: Lab Order Vit B12 ([id number]), Sent on: Sent Future Order: Lab Order PT/INR I n House ([id number]), Sent on: Sent Future Order: Lab Order Ferritin , Serum ([id number]), Sent on: Sent Future Order: Lab Order TSH-InHo use ([id number]), Sent on: Sent History Of Present Illness Encounter Date Complaint History Of Prese nt Illness depression This is an initi al visit. There is continuation of initial symptoms and worsening of previously reported symptoms. There is no improvement of initial symptoms. The patient reports functioning as very difficult. The patient presents with difficulty concentrating, difficulty falling asleep and difficulty staying asleep. The depression is aggravated by conflict or stress. Interventions the patient has tried have not provided any relief. The patient denies any chronic pain, headache, irritability, nausea, sweating and trembling. ETOH The symptoms are reported as being moderate. The symptoms occur daily. She states the symptoms are chronic. She comes in for ETOH use. She stated that she has been drinking since the age of 11. She stated that she stopped drinking from [id number]. She stated that she has not had a drink in 7 days. She was drinking 1/2pt-1gal daily. Functional Status Date Functional Assessmen t No Information Instructions Date Instruction Additional Infor mation Labs todayreturn as needed We should receive the results of your lab test within the next several days. You will either receive a phone call or a letter in the mail discussing the results and if there is further testing or treatment to follow Related to Hepatitis C As per patient privacy policy some of the clinical information may not be visible. Assessments Type Assessment Date No Information Patient Care Teams Name Effective Dates (start - stop) Status Members No Information
--- OUTSIDE RECORDS SUMMARY | 2025-03-05 19:12 | XMS_ITS | Encounter Summary ---
Author Organization [employer] Address [address] [place] [address] Care Team Providers Care Housekeeper Manager Name Role Phone Minerva Emmanuelhaniel Primary Care Provider Reason for Visit * Reason Comments Melena Fatigue * Auth/Cert (Routine) Specialty Diagnoses / Procedures Referred By Kerrie ramirez Referred To Contact Emergency Medicine [facility] Emergency Medicine [address] [place] [phone] Phone: tel: fax: Referral ID Status Reason Start Date Expiration Date Visits Re quested Visits Authorized [id number] 1 1 Encounter Details Date Type Department Care Team (Late st Contact Info) Description 03/05/2025 7:12 PM CDT - 03/05/2025 7:47 PM CDT Emergency [facility] Emergency Medicine [address] [place] [phone] John Vargas, DO [address] [place] [address] Hypokalemia (Primary Dx); Dark stools Discharge Disposition: Home or Self Care Social History Tobacco Use Types Packs/Day Years Used Date Smoking Tobacco: Every Day Cigarettes Smokeless Tobacco: Never Alcohol Use Standard Drinks/Week Comments No 8.3 (1 standard drink = 0.6 oz p ure alcohol) Feeling Safe Answer Date Recorded Within the last year, have y ou been afraid of your partner or ex-partner? No 04/02/2022 Within the last year, have y ou been humiliated or emotionally abused in other ways by your partner or ex-partner? No Within the last year, have y ou been kicked, hit, slapped, or otherwise physically hurt by your partner or ex-partner? No 04/02/2022 Within the last year, have y ou been raped or forced to have any kind of sexual activity by your partner or ex-partner? No 04/02/2022 Social Connections Answer Date Recorded In a typical week, how many times do you talk on the telephone with family, friends, or neighbors? More than three times a week 04/02/2022 How often do you get togethe r with friends or relatives? Once a week 04/02/2022 How often do you attend chur or restorationist services? More than 4 times per year 04/02/2022 Do you belong to any clubs o r organizations such as christian groups, unions, fraternal or athletic groups, or school groups? Yes 04/02/2022 How often do you attend meet ings of the clubs or organizations you belong to? More than 4 times per year 04/02/2022 Are you , , di vorced, , never , or living with a partner? 04/02/2022 Financial Resource Strain Answer Date R ecorded How hard is it for you to pa y for the very basics like food, housing, medical care, and heating? Not very hard 04/02/2022 Food Insecurity Answer Date Recorded In the past 12 months, have you worried that your food would run out before you had money to buy more? Never true 04/02/2022 In the past 12 months, did y ou run out of food and didn't have money to buy more? Never true 04/02/2022 Transportation Needs Answer Date Record ed In the past 12 months, has l ack of transportation kept you from medical appointments or from getting medications? No 11/2021 In the past 12 months, has l ack of transportation kept you from meetings, work, or from getting things needed for daily living? No 04/02/2022 Housing Stability Answer Date Recorded In the last 12 months, was t here a time when you were not able to pay the mortgage or rent on time? No 04/02/2022 (RETIRED) In the last 12 months, how many places have you lived? 1 04/02/2022 (RETIRED) In the last 12 weds, was there a time when you did not have a steady place to sleep or slept in a chcf (including now)? No 04/02/2022 Feeling Safe Answer Date Recorded Are you in a relationship wi th someone who hurts you emotionally and/or physically? No 03/05/2025 Education Answer Date Recorded What is the highest level of school you have completed or the highest degree you have received? 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 Gender Identity Not on file Sexual Orientation Not on file documented as of this encounter Last Filed Vital Signs Vital Sign Reading Time Taken Comments Blood Pressure 118/95 03/05/2025 7:45 PM CDT Pulse 81 03/05/2025 7:45 PM CDT Temperature 36.1 C (96.9 F) 03/05/2025 4:56 PM CDT Respiratory Rate 18 03/05/2025 7:45 PM CDT Oxygen Saturation 99% 03/05/2025 7:45 PM CDT Inhaled Oxygen Concentration - - Weight 60.3 kg (132 lb 15 oz) 03/05/2025 4:56 PM CDT Height 175.3 cm (5' 9 ) 03/05/2025 4:56 PM CDT Body Mass Index 19.63 03/05/2025 4:56 PM CDT documented in this encounter Discharge Instructions * Discharge Instructions* John Vargas, DO - 03/05/2025 7:34 PM CDT Follow-up with your primary care doctor Return to the emergency department if symptoms worsen Results for orders placed or performed during the hospital encounter of 03/05/25 CBC WITH DIFFERENTIAL Result Value Ref Range WBC 6.9 4.5 - 11.0 K/uL RBC 4.20 4.20 - 5.40 M/uL HEMOGLOBIN 12.6 12.0 - 16.0 g/dL HEMATOCRIT 39.0 36.0 - 46.0 % MCV 92.9 82.0 - 100.0 fL MCH 30.0 27.0 - 34.0 pg MCHC 32.3 31.0 - 37.0 g/dL RDW 14.3 11.0 - 14.5 % RDW-STDEV 48.3 37.0 - 54.0 fL PLATELETS 357 140 - 440 K/uL MPV 9.5 8.9 - 12.8 fL NEUTROPHILS 70 42 - 75 % LYMPHOCYTES 23 (L) 24 - 44 % MONOCYTES 6 2 - 10 % EOSINOPHILS 0 0 - 8 % BASOPHILS 0 0 - 1 % IMMATURE GRANULOCYTES 0 0 - 2 % NEUTROPHIL ABSOLUTE 4.86 1.40 - 6.50 K/uL LYMPHOCYTE ABSOLUTE 1.58 1.20 - 4.00 K/uL MONOCYTE ABSOLUTE 0.40 0.10 - 0.60 K/uL EOSINOPHIL ABSOLUTE 0.03 0.00 - 0.70 K/uL BASOPHILS ABSOLUTE 0.03 0.00 - 0.20 K/uL IMMATURE GRANULOCYTES ABSOLUTE 0.01 0.00 - 0.10 K/uL COMPREHENSIVE METABOLIC PANEL Result Value Ref Range SODIUM 136 136 - 145 mmol/L POTASSIUM 3.4 (L) 3.5 - 5.1 mmol/L CHLORIDE 101 98 - 107 mmol/L CO2 22 22 - 29 mmol/L CALCIUM 9.1 8.6 - 10.0 mg/dL BUN 7 6 - 20 mg/dL CREATININE 1.21 (H) 0.51 - 0.95 mg/dL GLUCOSE 118 (H) 74 - 99 mg/dL TOTAL PROTEIN 7.0 6.6 - 8.7 g/dL ALBUMIN 4.3 3.5 - 5.2 g/dL BILIRUBIN TOTAL 0.4 0.0 - 1.2 mg/dL ALKALINE PHOSPHATASE 97 35 - 104 U/L AST 15 10 - 35 U/L ALT 10 10 - 35 U/L GFR 59 (L) >=60 mL/min/1.73 sq meter ANION GAP 13 10 - 20 mmol/L Imaging Results None documented in this encounter Medications at Time of Discharge varenicline (CHANTIX) 1 mg TabletIndications:C igarette nicotine dependence, uncomplicated Take 1 Tablet (1 mg) by mouth 2 times daily. 60 Tablet 5 04/23/2022 multivitamin (DAILY-RUTH) tablet Take 1 Tablet by mouth daily. Epclusa 400-100 mg Tablet 12/29/2021 ibuprofen (MOTRIN) 200 mg tablet Take 200 mg by mouth every 6 hours as needed for Pain, Mild. 02/27/2020 acetaminophen (TYLENOL ORAL) Take by mouth. 02/27/2020 documented as of this encounter ED Notes * Darlene Angel RN - 03/05/2025 7:46 PM CDT Pt verbalizes understanding of discharge instructions. Pt alert and oriented, respirations even andunlabored. Pt's symptoms addressed and pt medically cleared for discharge. * Eda Barnard RN - 03/05/2025 4:52 PM CDT Patient presents to the ER under the recommendation of her PCP due to coffee ground stools x1 year. Patient states the past month has been very tired. Vitals stable In triage. Patient also statesSaturday she became very tired, blacked out and hit her head. * John Vargas DO - 03/05/2025 4:49 PM CDT HISTORY OF PRESENT ILLNESS History of Present Illness 39-year-old female with low iron and ferritin levels presenting with dizziness, nausea Experiencing general malaise for nearly a year, with increased fatigue over the past two months. Reports frequent dizzy spells, nausea, and anorexia. Labs ordered two weeks ago revealed low iron and ferritin levels. Started iron and vitamin C supplements, improving condition. On 02/24/2025, noticedbright red blood clots in stool, resolved. Experienced blackout and head injury due to dizziness. Recent stools watery, coffee ground texture, darker color. No abdominal pain, Continues iron supplements. PAST MEDICAL HISTORY REVIEWED MEDICAL: Patient has a past medical history of Bipolar affective disorder, depressed, moderate ([facility]/HCC), Chronic kidney disease, Headache(784.0), Liver disease, Seizure disorder (CMS/HCC), and Trauma. SURGICAL: Patient has a past surgical history that includes cholecystectomy; tonsillectomy; and tubal ligation (december 2007). ALLERGIES Codeine and Tramadol Review of Systems Constitutional: Negative for chills and fever. Respiratory: Negative for cough and shortness of breath. Cardiovascular: Negative for chest pain. Gastrointestinal: Positive for blood in stool. Negative for nausea and vomiting. Genitourinary: Negative for flank pain. Musculoskeletal: Negative for back pain and neck pain. Neurological: Positive for light-headedness. Negative for dizziness and weakness. All other systems reviewed and are negative. PHYSICAL EXAM INITIAL VS BP: (!) 141/98 (03/05/251655), Heart Rate: 95 bpm (03/05/251655), Resp: 22 (03/05/251655), Pulse: 79 (03/05/25 1920), Temp: 96.9 ??F (36.1 ??C) (03/05/251655), Temp src: Temporal (03/05/251655),SpO2: 99 % (03/05/251655), Height: 5' 9 (175.3 cm) (03/05/251655), Weight: 60.3 kg (03/05/251655), BMI (Calculated): 19.62 (03/05/251655) No LMP recorded. Blood pressure (!) 148/96, pulse 79, temperature 96.9 ??F (36.1 ??C), temperature source Temporal, resp. rate 14, height 5' 9 (1.753 m), weight 60.3 kg, SpO2 100%, not currently . Physical Exam Vitals reviewed. Constitutional: General: She is not in acute distress. Appearance: Normal appearance. HENT: Head: Normocephalic and atraumatic. Nose: Nose normal. Mouth/Throat: Mouth: Mucous membranes are moist. Eyes: Pupils: Pupils are equal, round, and reactive to light. Cardiovascular: Rate and Rhythm: Normal rate and regular rhythm. Pulses: Normal pulses. Pulmonary: Effort: Pulmonary effort is normal. No respiratory distress. Breath sounds: Normal breath sounds. No wheezing or rales. Abdominal: General: Abdomen is flat. There is no distension. Palpations: Abdomen is soft. Musculoskeletal: General: No swelling. Normal range of motion. Cervical back: Normal range of motion and neck supple. No tenderness. Skin: General: Skin is warm. Capillary Refill: Capillary refill takes less than 2 seconds. Coloration: Skin is not pale. Neurological: General: No focal deficit present. Mental Status: She is alert and oriented to person, place, and time. Cranial Nerves: No cranial nerve deficit. Sensory: No sensory deficit. Motor: No weakness. Psychiatric: Mood and Affect: Mood normal. DIAGNOSTICS LAB: CBC WITH DIFFERENTIAL - Abnormal Result Value WBC 6.9 RBC 4.20 HEMOGLOBIN 12.6 HEMATOCRIT 39.0 MCV 92.9 MCH 30.0 MCHC 32.3 RDW 14.3 RDW-STDEV 48.3 PLATELETS 357 MPV 9.5 NEUTROPHILS 70 LYMPHOCYTES 23 (*) MONOCYTES 6 EOSINOPHILS 0 BASOPHILS 0 IMMATURE GRANULOCYTES 0 NEUTROPHIL ABSOLUTE 4.86 LYMPHOCYTE ABSOLUTE 1.58 MONOCYTE ABSOLUTE 0.40 EOSINOPHIL ABSOLUTE 0.03 BASOPHILS ABSOLUTE 0.03 IMMATURE GRANULOCYTES ABSOLUTE 0.01 COMPREHENSIVE METABOLIC PANEL - Abnormal SODIUM 136 POTASSIUM 3.4 (*) CHLORIDE 101 CO2 22 CALCIUM 9.1 BUN 7 CREATININE 1.21 (*) GLUCOSE 118 (*) TOTAL PROTEIN 7.0 ALBUMIN 4.3 BILIRUBIN TOTAL 0.4 ALKALINE PHOSPHATASE 97 AST 15 ALT 10 GFR 59 (*) ANION GAP 13 RADIOLOGY: No orders to display EKG: PROCEDURES Procedures MEDICAL DECISION MAKING AND PLAN OF CARE Assessment & Plan Initial Assessment: 39-year-old female with dizziness, nausea, and dark stools. Low iron and ferritin levels, on iron supplements. Recent bright red blood clots in stool, now dark and watery. Low potassium levels. Differential Diagnosis: - Iron supplementation: Dark stools typical side effect. Continue iron supplementation. - Hypokalemia: Contributing to dizziness and weakness. Maintain hydration. Oral potassium prescribed for 3-5 days. ED Course: - Hemoglobin normal (12 and 39). - Low potassium levels. - Oral potassium given. - Advised to maintain hydration and continue iron supplementation. -+ Patient deferred rectal exam Final Assessment: Evaluated for dizziness, nausea, and dark stools. Hemoglobin normal, dark stools likely due to ironsupplementation with normal hemoglobin and no blood thinner use.. Hypokalemia identified, contributing to symptoms. Oral potassium administered and prescribed for home use. Clinical Impression: - Iron supplementation - Hypokalemia Disposition: - Discharge: Home, advised to maintain hydration and continue iron supplementation. - Follow-Up: Primary care physician. Patient Education: Importance of hydration and continuation of iron supplementation. Medical Decision Making Risk Prescription drug management. Clinical Scoring & Consults . New Prescriptions for this Encounter LAST VS BP: (!) 148/96 (03/05/251919), Heart Rate: 79 bpm (03/05/251919), Resp: 14 (03/05/251919), Pulse: 79 (03/05/251919), Temp: 96.9 ??F (36.1 ??C) (03/05/251655), Temp src: Temporal (03/05/251655),SpO2: 100 % (03/05/251919) CLINICAL IMPRESSION Diagnoses Diagnosis Comment Added By Time Added Hypokalemia [E87.6] John Vargas DO 03/05/2025 7:34 PM Dark stools [R19.5] John Vargas DO 03/05/2025 7:34 PM DISPOSITION, EDUCATION AND MEDICATION RECONCILIATION Medications reconciled. See after visit summary for patient education on discharged patients. ED Disposition ED Disposition Discharge Condition Stable User John Vargas DO Date/Time WedMar 05, 2025 7:34 PM Comment -- documented in this encounter Miscellaneous Notes * Gen AI АЛЕКСАНДР - GENERATIVE AI HANDOFF NOTE - 03/05/2025 8:40 PM CDT ## ER_course: ## # DIAGNOSIS: Hypokalemia and dark stools likely due to iron supplementation. The patient, a 39-year-old female, presented with dizziness, nausea, and dark stools. She has a history of low iron and ferritin levels and has been on iron supplements. The patient reported bright red blood clots in her stool, which resolved, and recent stools have been watery with a coffee ground texture. She experienced a blackout and head injury due to dizziness. # During the ER visit, the following abnormalities were found: low potassium levels (hypokalemia), contributing to dizziness and weakness. Hemoglobin levels were normal (12.6 and 39.0). # Oral potassium was administered and prescribed for home use. The patient was advised to maintain hydration and continue iron supplementation. A rectal exam was deferred by the patient. ## Follow_up_orders: ## # The patient is prescribed oral potassium for 3-5 days to address hypokalemia. # She is advised to maintain hydration and continue iron supplementation. # Follow-up with the primary care physician is recommended. ## Home_Situation: ## # No specific factors impairing follow-up care were noted in the ER course. documented in this encounter Plan of Treatment Not on file documented as of this encounter Procedures Procedure Name Priority Date/Time Associated Diagnosis Comments CBC WITH DIFFERENTIAL Stat 03/05/2025 5:00 PM CDT COMPREHENSIVE METABOLIC PANEL Stat 03/05/2025 5:00 PM CDT documented in this encounter Results * (ABNORMAL) COMPREHENSIVE METABOLIC PANEL (03/05/2025 5:00 PM CDT) SODIUM 136 136 - 145 mmol/L 03/05/2025 5:37 PM CDT [facility] POTASSIUM 3.4(L) 3.5 - 5.1 mmol/L 03/05/2025 5:37 PM CDT [facility] CHLORIDE 101 98 - 107 mmol/L 03/05/2025 5:37 PM CDT [facility] CO2 22 22 - 29 mmol/L 03/05/2025 5:37 PM CDT [facility] CALCIUM 9.1 8.6 - 10.0 mg/dL 03/05/2025 5:37 PM CDT [facility] BUN 7 6 - 20 mg/dL 03/05/2025 5:37 PM CDT [facility] CREATININE 1.21(H) 0.51 - 0.95 mg/dL 03/05/2025 5:37 PM T [facility] GLUCOSE 118(H) 74 - 99 mg/dL 03/05/2025 5:37 PM T [facility] TOTAL PROTEIN 7.0 6.6 - 8.7 g/dL 03/05/2025 5:37 PM [facility] ALBUMIN 4.3 3.5 - 5.2 g/dL 03/05/2025 5:37 PM T [facility] BILIRUBIN TOTAL 0.4 0.0 - 1.2 mg/dL 03/05/2025 5:37 PM [facility] ALKALINE PHOSPHATASE 97 35 - 104 U/L 03/05/2025 5:37 PM T [facility] AST 15 10 - 35 U/L 03/05/2025 5:37 PM [facility] ALT 10 10 - 35 U/L 03/05/2025 5:37 PM [facility] GFR 59(L) >=60 mL/min/1.7 3 sq meter 03/05/2025 5:37 PM [facility] Comment:eGFR calculated with 2020 CKD-EPI equation. Vegetarian diet, extremely high or low muscle mass, and may affect results. Cystatin C with Glomerular Filtration Rate is a suitable alternative for these patients. ANION GAP 13 10 - 20 mmol/L 03/05/2025 5:37 PM [facility] Blood Collection / Unknown 03/05/2025 5:00 PM CDT 03/05/2025 5:07 PM CDT us John Merida DO CHEMISTRY ORD ERABLES Final Result [facility] CLIA # [id number] [address] [place] [id number] * (ABNORMAL) CBC WITH DIFFERENTIAL (03/05/2025 5:00 PM CDT) WBC 6.9 4.5 - 11.0 K/uL 03/05/2025 5:10 PM [facility] RBC 4.20 4.20 - 5.40 M/uL 03/05/2025 5:10 PM [facility] HEMOGLOBIN 12.6 12.0 - 16.0 g/dL 03/05/2025 5:10 PM [facility] HEMATOCRIT 39.0 36.0 - 46.0 % 03/05/2025 5:10 PM [facility] MCV 92.9 82.0 - 100.0 fL 03/05/2025 5:10 PM [facility] MCH 30.0 27.0 - 34.0 pg 03/05/2025 5:10 PM [facility] MCHC 32.3 31.0 - 37.0 g/dL 03/05/2025 5:10 PM [facility] RDW 14.3 11.0 - 14.5 % 03/05/2025 5:10 PM [facility] RDW-STDEV 48.3 37.0 - 54.0 fL 03/05/2025 5:10 PM [facility] PLATELETS 357 140 - 440 K/uL 03/05/2025 5:10 PM [facility] MPV 9.5 8.9 - 12.8 fL 03/05/2025 5:10 PM [facility] NEUTROPHILS 70 42 - 75 % 03/05/2025 5:10 PM [facility] LYMPHOCYTES 23(L) 24 - 44 % 03/05/2025 5:10 PM [facility] MONOCYTES 6 2 - 10 % 03/05/2025 5:10 PM [facility] EOSINOPHILS 0 0 - 8 % 03/05/2025 5:10 PM [facility] BASOPHILS 0 0 - 1 % 03/05/2025 5:10 PM [facility] IMMATURE GRANULOCYTES 0 0 - 2 % 03/05/2025 5:10 PM CDT [facility] NEUTROPHIL ABSOLUTE 4.86 1.40 - 6.50 K/uL 03/05/2025 5:10 PM CDT [facility] LYMPHOCYTE ABSOLUTE 1.58 1.20 - 4.00 K/uL 03/05/2025 5:10 PM CDT [facility] MONOCYTE ABSOLUTE 0.40 0.10 - 0.60 K/uL 03/05/2025 5:10 PM CDT [facility] EOSINOPHIL ABSOLUTE 0.03 0.00 - 0.70 K/uL 03/05/2025 5:10 PM CDT [facility] BASOPHILS ABSOLUTE 0.03 0.00 - 0.20 K/uL 03/05/2025 5:10 PM CDT [facility] IMMATURE GRANULOCYTES ABSOLUTE 0.01 0.00 - 0.10 K/uL 03/05/2025 5:10 PM CDT [facility] Blood Collection / Unknown 03/05/2025 5:00 PM CDT 03/05/2025 5:07 PM CDT us John Messinao DO HEMATOLOGY OR DERABLES Final Result [facility] # [id number] [address] [place] [address] documented in this encounter Visit Diagnoses Diagnosis Hypokalemia- Primary Hypopotassemia Dark stools Nonspecific abnormal finding in stool contents documented in this encounter Administered Medications Inactive Administered Medications - up to 3 most recent administrations Medication Order MAR Action Action Date Dose Rate Site potassium CHLORIDE (KLOR-CON) SR tablet 40 mEq 40 mEq, Oral, ONE TIME ONLY, 1 dose, On Wed03/05/25 at 1930, Routine Given 03/05/2025 7:34 PM CDT 40 mEq documented in this encounter Active and Recently Administered Medications Times are shown in CDT. Scheduled Medication Order 03/03/2025 03/04/2025 03/05/2025 potassium CHLORIDE (KLOR-CON) SR tablet 40 mEq (COMPLETED) 40 mEq, Oral, ONE TIME ONLY, 1 dose, On Wed03/05/25 at 1930, Routine 1934 (Given - Provid er: Darlene Angel RN) documented in this encounter Care Teams Housekeeper Manager Relationship Specialty Start Date End Date Tito Emmanuel DO [address] [place] [address] PCP - General Family Practice 06/26/21 documented as of this encounter
--- OUTSIDE RECORDS SUMMARY | 2025-03-08 15:35 | XMS_ITS | Encounter Summary ---
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
--- OUTSIDE RECORDS SUMMARY | 2025-03-08 15:35 | XMS_ITS | Encounter Summary ---
Author Organization [facility] Address [address] [place] [address] Care Team Providers Care Garden Equipment Mechanic Name Role Phone Wilfrid Lopez MD Primary Care Provider [phone] Encounter Details Date Type Department Care Team (Late st Contact Info) Description 02/26/2006 Emergency [facility] Emergency Department [address] [place] [address] Tom Cuellar MD NO ADDRESS ON FILE Contusion of Knee (Primary Dx) Social History Tobacco Use Types Packs/Day Years Used Date Smoking Tobacco: Never Assessed Comments Unknown Sex and Gender Information Value Date Recorded Sex Assigned at Not on file 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
--- OUTSIDE RECORDS SUMMARY | 2025-03-08 15:35 | XMS_ITS | Encounter Summary ---
Author Organization [facility] Address [address] [place] [address] Care Team Providers Care Boring Machine Set Up Operator Name Role Phone Wilfrid Lopez MD Primary Care Provider [phone] Encounter Details Date Type Department Care Team (Late st Contact Info) Description 08/05/2007 Outpatient Historical 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
--- OUTSIDE RECORDS SUMMARY | 2025-03-08 15:35 | XMS_ITS | Encounter Summary ---
Author Organization [facility] Address [address] [place] [address] Care Team Providers Care Hydroelectric Production Manager Name Role Phone Wilfrid Lopez MD Primary Care Provider [phone] Encounter Details Date Type Department Care Team (Latest Contact Info) Description 06/01/2003 Outpatient Historical [facility] Tom Mccann MD NO ADDRESS ON FILE SUPERVIS NORMAL 1ST PREG (Primary Dx) Social History Tobacco Use Types Packs/Day Years Used Date Smoking Tobacco: Never Assessed Comments Unknown Sex and Gender Information Value Date Recorded Sex Assigned at Not on file 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
--- OUTSIDE RECORDS SUMMARY | 2025-03-08 15:35 | XMS_ITS | Encounter Summary ---
Author Organization [facility] Address [address] [place] [address] Care Team Providers Care Human Resources Intern Name Role Phone Wilfrid Lopez MD Primary Care Provider [phone]- [phone] Encounter Details Date Type Department Care Team (Latest Contact Info) Description 10/07/2005 Outpatient Historical [facility] [address] [place] [address] AMBULANCE, [facility] THREAT LABOR NEC-ANTEPAR (Primary Dx) Social History Tobacco Use Types Packs/Day Years Used Date Smoking Tobacco: Never Assessed Comments Unknown Sex and Gender Information Value Date Recorded Sex Assigned at Not on file Legal Sex Female 6:21 AM WATCH REPAIR PERSON Gender Identity Not on file Sexual Orientation Not on file documented as of this encounter Plan of Treatment Not on file documented as of this encounter Visit Diagnoses Diagnosis Other threatened labor, antepartum- Primary documented in this encounter Care Teams Human Resources Intern Relationship Specialty Start Date End Date Wilfrid Lopez MD PCP - General Family Practice 07/15/12 documented as of this encounter
--- OUTSIDE RECORDS SUMMARY | 2025-03-08 15:35 | XMS_ITS | Encounter Summary ---
Author Organization [facility] Address [address] [place] [address] Care Team Providers Care Manager Package Name Role Phone Wilfrid Lopez MD Primary Care Provider Encounter Details Date Type Department Care Team (Latest Contact Info) Description 07/12/2007 Outpatient Historical [facility] Medicine [address] [phone] Tom Zayas MD [address] [place] [address] Unspecified Vaginitis and Vulvovaginitis (Primary Dx); Supervision of Other Normal Social History Tobacco Use Types Packs/Day Years Used Date Smoking Tobacco: Never Assessed Comments Unknown Sex and Gender Information Value Date Recorded Sex Assigned at Not on file Legal Sex Female 6:21 AM COUNSELING SERVICES DIRECTOR Gender Identity Not on file Sexual Orientation Not on file documented as of this encounter Plan of Treatment Not on file documented as of this encounter Visit Diagnoses Diagnosis Vaginitis and vulvovaginitis, unspecified- Primary Supervision of other normal documented in this encounter Care Teams Manager Package Relationship Specialty Start Date End Date Wilfrid Lopez MD PCP - General Family Practice 07/15/12 documented as of this encounter
--- OUTSIDE RECORDS SUMMARY | 2025-03-08 15:35 | XMS_ITS | Encounter Summary ---
Author Organization [facility] Address [address] [place] [address] Care Team Providers Care Cattle Shipper Name Role Phone Wilfrid Lopez MD Primary Care Provider [phone]- [phone] Encounter Details Date Type Department Care Team (Latest Contact Info) Description 07/14/2005 Outpatient Historical [facility] Medicine [address] [phone] Tom Zayas MD [address] [place] [address] UNSPECIFIED CHLAMYDIAL INFECTN (Primary Dx); SUPERVIS OTHER NORMAL PREG Social History Tobacco Use Types Packs/Day Years Used Date Smoking Tobacco: Never Assessed Comments Unknown Sex and Gender Information Value Date Recorded Sex Assigned at Not on file Legal Sex Female 6:21 AM BLACK OXIDE OPERATOR Gender Identity Not on file Sexual Orientation Not on file documented as of this encounter Plan of Treatment Not on file documented as of this encounter Visit Diagnoses Diagnosis Unspecified chlamydial infection, in conditions classified elsewhere and of unspecified site- Primary Supervision of other normal documented in this encounter Care Teams Cattle Shipper Relationship Specialty Start Date End Date Wilfrid Lopez MD PCP - General Family Practice 07/15/12 documented as of this encounter
--- OUTSIDE RECORDS SUMMARY | 2025-03-08 15:35 | XMS_ITS | Encounter Summary ---
Author Organization [facility] Address [address] [place] [address] Care Team Providers Care Head Transfer Clerk Name Role Phone Wilfrid Lopez MD Primary Care Provider Encounter Details Date Type Department Care Team (Late st Contact Info) Description 09/06/2007 Outpatient Historical [facility] Medicine [address] [phone] Tom Zayas MD [address] [place] [address] Social History Tobacco Use Types Packs/Day Years Used Date Smoking Tobacco: Never Assessed Comments Unknown Sex and Gender Information Value Date Recorded Sex Assigned at Not on file Legal Sex Female 6:21 AM ELECTRONICS TECHNICIAN Gender Identity Not on file Sexual Orientation Not on file documented as of this encounter Plan of Treatment Not on file documented as of this encounter Visit Diagnoses Not on filedocumented in this encounter Care Teams Head Transfer Clerk Relationship Specialty Start Date End Date Wilfrid Lopez MD PCP - General Family Practice 07/15/12 documented as of this encounter
--- OUTSIDE RECORDS SUMMARY | 2025-03-08 15:35 | XMS_ITS | Encounter Summary ---
Author Organization [facility] Address [address] [place] [address] Care Team Providers Care Gold Leaf Roller Name Role Phone Wilfrid Lopez MD Primary Care Provider [phone]- [phone] Encounter Details Date Type Department Care Team (Latest Contact Info) Description 07/06/2007 Outpatient Historical [facility] Medicine [address] [phone] [facility] [address] [phone] Other and Unspecified Diseases of the Oral Soft Tissues (Primary Dx); Insomnia, Unspecified; Supervision of Other Normal Social History Tobacco Use Types Packs/Day Years Used Date Smoking Tobacco: Never Assessed Comments Unknown Sex and Gender Information Value Date Recorded Sex Assigned at Not on file Legal Sex Female 6:21 AM FARMER VEGETABLE Gender Identity Not on file Sexual Orientation Not on file documented as of this encounter Plan of Treatment Not on file documented as of this encounter Visit Diagnoses Diagnosis Other and unspecified diseases of the oral soft tissues- Primary Insomnia, unspecified Supervision of other normal documented in this encounter Care Teams Gold Leaf Roller Relationship Specialty Start Date End Date Wilfrid Lopez MD PCP - General Family Practice 07/15/12 documented as of this encounter
--- OUTSIDE RECORDS SUMMARY | 2025-03-08 15:35 | XMS_ITS | Encounter Summary ---
Author Organization [facility] Address [address] [place] [address] Care Team Providers Care Serology Technician Name Role Phone Wilfrid Lopez MD Primary Care Provider [phone]- [phone] Encounter Details Date Type Department Care Team (Latest Contact Info) Description 07/14/2005 Outpatient Historical [facility] Medicine [address] [phone] Tom Zayas MD [address] [place] [address] UNSPECIFIED CHLAMYDIAL INFECTN (Primary Dx) Social History Tobacco Use Types Packs/Day Years Used Date Smoking Tobacco: Never Assessed Comments Unknown Sex and Gender Information Value Date Recorded Sex Assigned at Not on file Legal Sex Female 6:21 AM MAIL SORTER AND DELIVERY Gender Identity Not on file Sexual Orientation Not on file documented as of this encounter Plan of Treatment Not on file documented as of this encounter Visit Diagnoses Diagnosis Unspecified chlamydial infection, in conditions classified elsewhere and of unspecified site- Primary documented in this encounter Care Teams Serology Technician Relationship Specialty Start Date End Date Wilfrid Lopez MD PCP - General Family Practice 07/15/12 documented as of this encounter
--- OUTSIDE RECORDS SUMMARY | 2025-03-08 15:35 | XMS_ITS | Encounter Summary ---
Author Organization [facility] Address [address] [place] [address] Care Team Providers Care Branch Operations Specialist Name Role Phone Wilfrid Lopez MD Primary Care Provider Encounter Details Date Type Department Care Team (Late st Contact Info) Description 09/01/2007 Outpatient Historical [facility] Medicine [address] [phone] Tom Zayas MD [address] [place] [address] Social History Tobacco Use Types Packs/Day Years Used Date Smoking Tobacco: Never Assessed Comments Unknown Sex and Gender Information Value Date Recorded Sex Assigned at Not on file Legal Sex Female 6:21 AM SUPERVISING DEPUTY Gender Identity Not on file Sexual Orientation Not on file documented as of this encounter Plan of Treatment Not on file documented as of this encounter Visit Diagnoses Not on filedocumented in this encounter Care Teams Branch Operations Specialist Relationship Specialty Start Date End Date Wilfrid Lopez MD PCP - General Family Practice 07/15/12 documented as of this encounter
--- OUTSIDE RECORDS SUMMARY | 2025-03-08 15:35 | XMS_ITS | Encounter Summary ---
Author Organization [facility] Address [address] [place] [address] Care Team Providers Care Clerical Secretary Name Role Phone Wilfrid Lopez MD Primary Care Provider [phone]- [phone] Encounter Details Date Type Department Care Team (Latest Contact Info) Description 05/31/2007 Outpatient Historical [facility] Medicine [address] [phone] Tom Zayas MD [address] [place] [address] Supervision of Other Normal (Primary Dx) Social History Tobacco Use Types Packs/Day Years Used Date Smoking Tobacco: Never Assessed Comments Unknown Sex and Gender Information Value Date Recorded Sex Assigned at Not on file Legal Sex Female 6:21 AM BAR WELDER Gender Identity Not on file Sexual Orientation Not on file documented as of this encounter Plan of Treatment Not on file documented as of this encounter Visit Diagnoses Diagnosis Supervision of other normal - Primary documented in this encounter Care Teams Clerical Secretary Relationship Specialty Start Date End Date Wilfrid Lopez MD PCP - General Family Practice 07/15/12 documented as of this encounter
--- OUTSIDE RECORDS SUMMARY | 2025-03-08 15:36 | XMS_ITS | Encounter Summary ---
Author Organization [facility] Address [address] [facility] Attn: Epic Prelude ADT IFEOMA [place]HONEY [address] Care Team Providers Care Radar Repairer Name Role Phone Wilfrid Lopez MD Primary Care Provider [phone] Encounter Details Date Type Department Care Team (Late st Contact Info) Description 10/21/2003 Outpatient Historical Tom Mccann MD NO ADDRESS ON FILE THRT [facility]TE[facility] (Primary Dx) Social History Tobacco Use Types Packs/Day Years Used Date Smoking Tobacco: Never Assessed Comments Unknown Sex and Gender Information Value Date Recorded Sex Assigned at Not on file Legal Sex Female 6:21 AM CHEMICAL PUMPER Gender Identity Not on file Sexual Orientation Not on file documented as of this encounter Plan of Treatment Not on file documented as of this encounter Visit Diagnoses Diagnosis Threatened premature labor, antepartum(644.03)- Primary Threatened premature labor, antepartum documented in this encounter Care Teams Radar Repairer Relationship Specialty Start Date End Date Wilfrid Lopez MD PCP - General Family Practice 07/15/12 documented as of this encounter
--- OUTSIDE RECORDS SUMMARY | 2025-03-08 15:36 | XMS_ITS | Encounter Summary ---
Author Organization [facility] Address [address] [place] [address] Care Team Providers Care Acute Care Physical Therapist Name Role Phone Wilfrid Lopez MD Primary Care Provider [phone]- [phone] Encounter Details Date Type Department Care Team (Latest Contact Info) Description 06/25/2005 Outpatient Historical [facility] Medicine [address] [phone] Tom Zayas MD [address] [place] [address] SUPERVIS OTHER NORMAL PREG (Primary Dx) Social History Tobacco Use Types Packs/Day Years Used Date Smoking Tobacco: Never Assessed Comments Unknown Sex and Gender Information Value Date Recorded Sex Assigned at Not on file Legal Sex Female 6:21 AM HUMAN SERVICE TECHNICIAN Gender Identity Not on file Sexual Orientation Not on file documented as of this encounter Plan of Treatment Not on file documented as of this encounter Visit Diagnoses Diagnosis Supervision of other normal - Primary documented in this encounter Care Teams Acute Care Physical Therapist Relationship Specialty Start Date End Date Wilfrid Lopez MD PCP - General Family Practice 07/15/12 documented as of this encounter
--- OUTSIDE RECORDS SUMMARY | 2025-03-08 15:36 | XMS_ITS | Encounter Summary ---
Author Organization [facility] Address [address] [place] [address] Care Team Providers Care Garment Parts Cutter Machine Name Role Phone Wilfrid Lopez MD Primary Care Provider Encounter Details Date Type Department Care Team (Latest Contact Info) Description 03/21/2003 Outpatient Historical [facility] Ambulance [address] [place] [address] AMBULANCE, [facility] ABDOMINAL PAIN UNSPEC SITE (Primary Dx) Social History Tobacco Use Types Packs/Day Years Used Date Smoking Tobacco: Never Assessed Comments Unknown Sex and Gender Information Value Date Recorded Sex Assigned at Not on file Legal Sex Female 6:21 AM PATIENT SUPPORT SPECIALIST Gender Identity Not on file Sexual Orientation Not on file documented as of this encounter Plan of Treatment Not on file documented as of this encounter Visit Diagnoses Diagnosis Abdominal pain, unspecified site- Primary documented in this encounter Care Teams Garment Parts Cutter Machine Relationship Specialty Start Date End Date Wilfrid Lopez MD PCP - General Family Practice 07/15/12 documented as of this encounter
--- OUTSIDE RECORDS SUMMARY | 2025-03-08 15:36 | XMS_ITS | Encounter Summary ---
Author Organization [employer] Address [address] [place] [address] Care Team Providers Care Asset Protection Detective Name Role Phone Tito Emmanuel DO Primary Care Provider [phone] Encounter Details Date Type Department Care Team (Late st Contact Info) Description 03/06/2025 External Device Data [facility] ABSTRACTION Provider, Abstract NO ADDRESS ON FILE Social History Tobacco Use Types Packs/Day Years [...] week 04/02/2022 How often do you attend [facility] or synagogue services? More than 4 times per year 04/02/2022 Do you belong to any clubs o r organizations such as confucianist groups, unions, fraternal or athletic groups, or [...] 1 04/02/2022 (RETIRED) In the last 12 wed ths, was there a time when you did not have a steady place to sleep or slept in a snf (including now)? No 04/02/2022 Feeling Safe Answer [...] on file Legal Sex Female 1:14 PM WIG COMBER Gender Identity Not on file Sexual Orientation Not on file documented as of this encounter Plan of Treatment Not on file documented as of this encounter Visit Diagnoses Not on filedocumented in this encounter Care Teams Asset Protection Detective Relationship Specialty Start Date End Date Tito Emmanuel DO [address] [place] [address] PCP - General Family Practice 06/26/21 documented as of this encounter
--- OUTSIDE RECORDS SUMMARY | 2025-03-08 15:36 | XMS_ITS | Clinical Summary ---
Author Organization [facility] Address [address] [address] Care Team Providers Care Boat Pilot Name Role Phone Wilfrid Lopez MD Primary Care Provider [phone] Allergies Active Allergy Reactions Criticality Noted Date Comments Codeine Hives,Nausea and Vomiting High 07/02/2008 Tramadol Other (See Comments) ,Renal Dysfunctions Medium 06/18/2009 Medications ibuprofen (MOTRIN) 200 mg tablet Take 200 mg by mouth every 6 hours as needed for Pain, Mild. Active acetaminophen (TYLENOL ORAL) Take by mouth. Active divalproex (DEPAKOTE) 500 mg delayed release tabletIndicati ons:Chronic migraine without aura, intractable, without status migrainosus,Ch ronic daily headache,Numbn ess and tingling of right side of face Take 1 Tablet (500 mg) by mouth 2 times daily. 60 Tablet 5 1 Active rizatriptan (MAXALT ANIMAL ATTENDANTS AND TRAINERS) 5 mg Tablet, Rapid DissolveIndica tions:Chronic migraine without aura, intractable, without status migrainosus,Ch ronic daily headache,Numbn ess and tingling of right side of face Place 1 Tablet (5 mg) inside cheek see administration instructions. may repeat in 2 hours; max dose 2 tab in 24 hours 9 Tablet 5 1 Active prochlorperazi ne maleate (COMPAZINE) 5 mg tabletIndicati ons:Chronic migraine without aura, intractable, without status migrainosus,Ch ronic daily headache,Numbn ess and tingling of right side of face Take 1 Tablet (5 mg) by mouth every 8 hours as needed for Nausea/Emesis or Other (See Comment) (migraine). 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/2011 Medullary sponge kidney 04/28/2011 Anemia 09/30/2009 Migraine 09/23/2009 ADD (attention deficit disorder with hyperactivi ty) 09/23/2009 PTSD (post-traumatic stress disorder) 09/23/2009 Bipolar affective disorder 09/23/2009 Multiple personality disorder 09/23/2009 Immunizations Immunization Administration Dates Next Due (TDVAX)(7 YRS UP) TETANUS AN D DIPHTHERIA TOXOIDS, ADSORBED (2 LF OF TETANUS TOXOID AND 2 LF OF DIPHTHERIA TOXOID), 0.5ML (PF), IM 04/18/2002 Hepatitis B Vaccine 12/25/1997,06/20/1997,1996 Influenza Seasonal Unspecifi ed Formulation IM 07/18/1996 Family History Medical History Relation Name Comments Cancer Father renal cancer Diabetes Father Heart Disease Father Hypertension Father COPD Mother Migraines Mother Lung Cancer Paternal Grandfather Diabetes Paternal Grandmother Heart Disease Paternal Grandmother Cancer Sister 3 cervical cancer Relation Name Status Comments Father Mother Alive Paternal Grandfather Paternal Grandmother Sister 1 Alive Sister 2 Alive Sister 3 Social History Tobacco Use Types Packs/Day Years Used Date Smoking Tobacco: Every Day Cigarettes Smokeless Tobacco: Never Tobacco Cessation:Ready to Q uit: Yes Alcohol Use Standard Drinks/Week Comments No 8.3 (1 standard drink = 0.6 oz p ure alcohol) Comments No Sex and Gender Information Value Date Recorded Sex Assigned at Not on file Legal Sex Female 6:21 AM SPEEDER TENDER Gender Identity Not on file Sexual Orientation Not on file Occupation Industry Job Start Date Job End Date Not employed Not on file Not on file Not on file Last Filed Vital Signs Vital Sign Reading Time Taken Comments Blood Pressure 124/66 12/17/2020 1:15 PM CDT Pulse 84 12/12/2020 10:38 AM CDT Temperature 37 C (98.6 F) 01/08/2020 3:14 PM CDT Respiratory Rate 18 01/08/2020 3:14 PM CDT Oxygen Saturation 98% 01/08/2020 3:14 PM CDT Inhaled Oxygen Concentration - - Weight 68.7 kg (151 lb 6.4 oz) 12/17/2020 1:15 P M CDT Height 175.3 cm (5' 9 ) 12/17/2020 1:15 PM CDT Body Mass Index 22.36 12/17/2020 1:15 PM CDT Plan of Treatment Health Maintenance Due Date Last Done Comments DTAP/TDAP/TD VACCINES (2 - Tdap) 04/19/2002 04/18/2002 HPV/Cotest (21-29) 2007 CERVICAL CANCER SCREENING 2016 HPV/Cotest (30-65) 2016 PAP SMEAR 2016 05/14/2010, 05/12/2010 INFLUENZA VACCINE (#1) 2025 0, 07/18/1996 HEPATITIS B VACCINES Completed 12/25/1997, 06/20/1997, 05/21/1997 HPV VACCINES Aged Out No longer eligi ble based on patient's age to complete this topic Procedures Procedure Name Priority Date/Time Associated Diagnosis Comments CERV/VAG CYTOPATH, THIN PREP BRASSIERE CUP MOLD CUTTER Routine 05/12/2010 from Last 3 Months or Most Recently Relevant to Health Maintenance Results * CERV/VAG CYTOPATH, THIN PREP BRASSIERE CUP MOLD CUTTER (05/12/2010) FINAL REPORT EXTERNAL LAB Endocervical us Abstract Spg Provider PATHOLOGY/CYTOLOGY ORDERAB LES Final Result EXTERNAL LAB from Last 3 Months or Most Recently Relevant to Health Maintenance Insurance [facility] [address] [place] [id number] [employer] PLUS Care Teams Boat Pilot Relationship Specialty Start Date End Date Wilfrid Lopez MD PCP - General Family Practice 07/15/12
--- OUTSIDE RECORDS SUMMARY | 2025-03-08 15:36 | XMS_ITS | Encounter Summary ---
Author Organization [facility] Address [address] [place] [address] Care Team Providers Care Sociology Faculty Member Name Role Phone Wilfrid Lopez MD Primary Care Provider Encounter Details Date Type Department Care Team (Latest Contact Info) Description 05/29/2003 Outpatient Historical [facility] Family Medicine[address] [address] Demetrius Dempsey MD [address] [address] SUPERVIS OTHER NORMAL PREG (Primary Dx) Social History Tobacco Use Types Packs/Day Years Used Date Smoking Tobacco: Never Assessed Comments Unknown Sex and Gender Information Value Date Recorded Sex Assigned at Not on file Legal Sex Female 6:21 AM FISHER TROT LINE Gender Identity Not on file Sexual Orientation Not on file documented as of this encounter Plan of Treatment Not on file documented as of this encounter Visit Diagnoses Diagnosis Supervision of other normal - Primary documented in this encounter Care Teams Sociology Faculty Member Relationship Specialty Start Date End Date Wilfrid Lopez MD PCP - General Family Practice 07/15/12 documented as of this encounter
--- OUTSIDE RECORDS SUMMARY | 2025-03-08 15:36 | XMS_ITS | Encounter Summary ---
Author Organization [facility] Address [address] [place] [address] Care Team Providers Care Clinical Dietetic Technician Name Role Phone Wilfrid Lopez MD Primary Care Provider [phone] Encounter Details Date Type Department Care Team (Latest Contact Info) Description 05/31/2007 Outpatient Historical [facility] Medicine [address] [phone] Tom Zayas MD [address] [place] [address] Supervision of Other Normal (Primary Dx) Social History Tobacco Use Types Packs/Day Years Used Date Smoking Tobacco: Never Assessed Comments Unknown Sex and Gender Information Value Date Recorded Sex Assigned at Not on file Legal Sex Female 6:21 AM SENIOR MARKETING COORDINATOR Gender Identity Not on file Sexual Orientation Not on file documented as of this encounter Plan of Treatment Not on file documented as of this encounter Visit Diagnoses Diagnosis Supervision of other normal - Primary documented in this encounter Care Teams Clinical Dietetic Technician Relationship Specialty Start Date End Date Wilfrid Lopez MD PCP - General Family Practice 07/15/12 documented as of this encounter
--- OUTSIDE RECORDS SUMMARY | 2025-03-08 15:36 | XMS_ITS | Encounter Summary ---
Author Organization [employer] [facility] Address [address] [place] [address] Care Team Providers Care Manager Clinical Applications Name Role Phone Wilfrid Lopez MD Primary Care Provider [phone]- [phone] Encounter Details Date Type Department Care Team (Latest Contact Info) Description 05/23/2003 Outpatient Historical [facility] [address] [place] [address] Tom Mccann MD NO ADDRESS ON FILE SUPERVIS NORMAL 1ST PREG (Primary Dx) Social History Tobacco Use Types Packs/Day Years Used Date Smoking Tobacco: Never Assessed Comments Unknown Sex and Gender Information Value Date Recorded Sex Assigned at Not on file Legal Sex Female 6:21 AM BOTTOM CRANE OPERATOR Gender Identity Not on file Sexual Orientation Not on file documented as of this encounter Plan of Treatment Not on file documented as of this encounter Visit Diagnoses Diagnosis Supervision of normal first - Primary documented in this encounter Care Teams Manager Clinical Applications Relationship Specialty Start Date End Date Wilfrid Lopez MD PCP - General Family Practice 07/15/12 documented as of this encounter
--- OUTSIDE RECORDS SUMMARY | 2025-03-08 15:36 | XMS_ITS | Encounter Summary ---
Author Organization [employer] Address [address] [place] [address] Care Team Providers Care Nutritionalist Name Role Phone Tito Emmanuel DO Primary Care Provider [phone] Encounter Details Date Type Department Care Team [...] week 04/02/2022 How often do you attend [facility] or orthodox services? More than 4 times per year 04/02/2022 Do you belong to any clubs o r organizations such as latter day groups, unions, fraternal or athletic groups, or [...] place to sleep or slept in a fpc (including now)? No 04/02/2022 Feeling Safe Answer [...] on file Legal Sex Female 1:14 PM MANAGER BUSINESS DEVELOPMENT HOSPICE Gender Identity Not on file Sexual Orientation Not on file documented as of this encounter Plan of Treatment Not on file documented as of this encounter Visit Diagnoses Not on filedocumented in this encounter Care Teams Nutritionalist Relationship Specialty Start Date End Date Tito Emmanuel DO [address] [place] [address] PCP - General Family Practice 06/26/21 documented as of this encounter
--- OUTSIDE RECORDS SUMMARY | 2025-03-08 15:36 | XMS_ITS | Encounter Summary ---
Author Organization [facility] Address [address] [place] [address] Care Team Providers Care Aeronautical Project Engineer Name Role Phone Wilfrid Lopez MD Primary Care Provider Encounter Details Date Type Department Care Team (Latest Contact Info) Description 12/26/2003 Outpatient Historical [facility] RISK ADJUSTMENT SPECIALIST [phone] Tom Mccann MD NO ADDRESS ON FILE ROUT POSTPART FOLLOW-UP (Primary Dx) Social History Tobacco Use Types Packs/Day Years Used Date Smoking Tobacco: Never Assessed Comments Unknown Sex and Gender Information Value Date Recorded Sex Assigned at Not on file Legal Sex Female 6:21 AM VEGETABLE FARM WORKER Gender Identity Not on file Sexual Orientation Not on file documented as of this encounter Plan of Treatment Not on file documented as of this encounter Visit Diagnoses Diagnosis Routine follow-up- Primary documented in this encounter Care Teams Aeronautical Project Engineer Relationship Specialty Start Date End Date Wilfrid Lopez MD PCP - General Family Practice 07/15/12 documented as of this encounter
--- OUTSIDE RECORDS SUMMARY | 2025-03-08 15:36 | XMS_ITS | Encounter Summary ---
Author Organization [facility] Address [address] [place] [address] Care Team Providers Care Drill Press Operator For Metal Name Role Phone Wilfrid Lopez MD Primary Care Provider [phone] Encounter Details Date Type Department Care Team (Late st Contact Info) Description 07/02/2006 Outpatient Historical [facility] Services [address] [place] [address] Kris Gutierrez MD [address] [place] [phone] Chondromalacia of Patella (Primary Dx) Social History Tobacco Use Types Packs/Day Years Used Date Smoking Tobacco: Never Assessed Comments Unknown Sex and Gender Information Value Date Recorded Sex Assigned at Not on file Legal Sex Female 6:21 AM VBA DEVELOPER Gender Identity Not on file Sexual Orientation Not on file documented as of this encounter Plan of Treatment Not on file documented as of this encounter Procedures Procedure Name Priority Date/Time Associated Diagnosis Comments MRI KNEE WO CONTRAST RIGHT Routine 07/02/2006 9:03 AM VBA DEVELOPER documented in this encounter Results * MRI KNEE WO CONTRAST RIGHT (07/02/2006 9:03 AM VBA DEVELOPER) Anatomical Region Laterality Modality Lower Extremity Other 07/02/2006 9:03 AM VBA DEVELOPER Narrative 07/02/2006 9:03 AM VBA DEVELOPER MRI of the right knee was performed without contrast. The ACL and the PCL are intact. The quadriceps tendon and the patellar tendon are intact. The medialcollateral ligament, iliotibial tract, fibulocollateral ligament, and biceps femoris are intact. Nolinear meniscal tear is identified. Note is made that the patient is moving on the sagittal protondense images and the motion artifact is simulating a meniscal tear on this series. The medialpatellofemoral ligament is intact. There is some mild cartilage loss of the patella especially theapex and medial facet, but no bony reactive changes are identified. There is a physiologic amountof knee joint fluid. It also appears there is some cartilage loss of the trochlea, but no bonyreactive changes. Impression: Mild chondromalacia of the patella. Otherwise the exam is unremarkable. - Dictated By: Mary Edwards M.D. Electronically Signed By: Mary Edwards M.D. Date Signed: 07/02/06 [facility] Procedure Note 07/19/2009 MRI of the right knee was performed without contrast. The ACL and the PCLare intact. The quadriceps tendon and the patellar tendon are intact. The medialcollateral ligament,iliotibial tract, fibulocollateral ligament, and biceps femoris are intact. Nolinearmeniscal tear is identified. Note is made that the patient is moving on the sagittal protondense images and themotion artifact is simulating a meniscal tear on this series. The medialpatellofemoral ligament isintact. There is some mild cartilage loss of the patella especially theapex and medial facet, but no bonyreactive changes are identified. There is a physiologic amountof knee joint fluid. It also appears there issome cartilage loss of the trochlea, but no bonyreactive changes. Impression: Mild chondromalacia of the patella. Otherwise the exam is unremarkable. - Dictated By: Mary Edwards M.D. Electronically Signed By: Mary Edwards M.D. Date Signed: 07/02/06 [facility] us Historical Provider MR ORDERABLES Final Result documented in this encounter Visit Diagnoses Diagnosis Chondromalacia of patella- Primary documented in this encounter Care Teams Drill Press Operator For Metal Relationship Specialty Start Date End Date Wilfrid Lopez MD PCP - General Family Practice 07/15/12 documented as of this encounter
--- OUTSIDE RECORDS SUMMARY | 2025-03-08 15:36 | XMS_ITS | Encounter Summary ---
Author Organization [facility] Address [address] [place] [address] Care Team Providers Care Supervisor Motorcycle Repair Shop Name Role Phone Wilfrid Lopez MD Primary Care Provider [phone] Encounter Details Date Type Department Care Team (Latest Contact Info) Description 06/25/2005 Outpatient Historical [facility] Medicine [address] [address] Tom Zayas MD [address] [place] [address] SUPERVIS OTHER NORMAL PREG (Primary Dx) Social History Tobacco Use Types Packs/Day Years Used Date Smoking Tobacco: Never Assessed Comments Unknown Sex and Gender Information Value Date Recorded Sex Assigned at Not on file Legal Sex Female 6:21 AM DELIVERY NURSE Gender Identity Not on file Sexual Orientation Not on file documented as of this encounter Plan of Treatment Not on file documented as of this encounter Visit Diagnoses Diagnosis Supervision of other normal - Primary documented in this encounter Care Teams Supervisor Motorcycle Repair Shop Relationship Specialty Start Date End Date Wilfrid Lopez MD PCP - General Family Practice 07/15/12 documented as of this encounter
--- OUTSIDE RECORDS SUMMARY | 2025-03-08 15:36 | XMS_ITS | Encounter Summary ---
Author Organization [facility] Address [address] [place] [address] Care Team Providers Care Shingle Carrier Name Role Phone Wilfrid Lopez MD Primary Care Provider [phone] Encounter Details Date Type Department Care Team (Latest Contact Info) Description 10/19/2003 Outpatient Historical [facility] PROJECT SYSTEMS ENGINEER [address] [place] [address] Tom Mccann MD NO ADDRESS ON FILE SUPERVIS OTHER NORMAL PREG (Primary Dx) Social History Tobacco Use Types Packs/Day Years Used Date Smoking Tobacco: Never Assessed Comments Unknown Sex and Gender Information Value Date Recorded Sex Assigned at Not on file Legal Sex Female 6:21 AM SPECIAL EDUCATION COORDINATOR Gender Identity Not on file Sexual Orientation Not on file documented as of this encounter Plan of Treatment Not on file documented as of this encounter Visit Diagnoses Diagnosis Supervision of other normal - Primary documented in this encounter Care Teams Shingle Carrier Relationship Specialty Start Date End Date Wilfrid Lopez MD PCP - General Family Practice 07/15/12 documented as of this encounter
--- OUTSIDE RECORDS SUMMARY | 2025-03-08 15:36 | XMS_ITS | Encounter Summary ---
Author Organization [facility] Address [address] [place] [address] Care Team Providers Care Control Room Technician Name Role Phone Wilfrid Lopez MD Primary Care Provider [phone] Encounter Details Date Type Department Care Team (Latest Contact Info) Description 08/21/2003 Outpatient Historical [facility] Tom Mccann MD NO ADDRESS ON FILE SUPERVIS NORMAL 1ST PREG (Primary Dx) Social History Tobacco Use Types Packs/Day Years Used Date Smoking Tobacco: Never Assessed Comments Unknown Sex and Gender Information Value Date Recorded Sex Assigned at Not on file Legal Sex Female 6:21 AM FOUNTAIN ATTENDANT Gender Identity Not on file Sexual Orientation Not on file documented as of this encounter Plan of Treatment Not on file documented as of this encounter Visit Diagnoses Diagnosis Supervision of normal first - Primary documented in this encounter Care Teams Control Room Technician Relationship Specialty Start Date End Date Wilfrid Lopez MD PCP - General Family Practice 07/15/12 documented as of this encounter
--- OUTSIDE RECORDS SUMMARY | 2025-03-08 15:36 | XMS_ITS | Encounter Summary ---
Author Organization [facility] Address [address] [place] [address] Care Team Providers Care Real Estate Office Supervisor Name Role Phone Wilfrid Lopez MD Primary Care Provider [phone] Encounter Details Date Type Department Care Team (Latest Contact Info) Description 07/22/2006 Outpatient Historical [facility] [address] [place] [address] AMBULANCE, [facility] Other Specified Noninflammatory Disorder of Vagina (Primary Dx) Social History Tobacco Use Types Packs/Day Years Used Date Smoking Tobacco: Never Assessed Comments Unknown Sex and Gender Information Value Date Recorded Sex Assigned at Not on file Legal Sex Female 6:21 AM HAND CEMENTER Gender Identity Not on file Sexual Orientation Not on file documented as of this encounter Plan of Treatment Not on file documented as of this encounter Procedures Procedure Name Priority Date/Time Associated Diagnosis Comments US PELVIS COMPLETE Routine 07/22/2006 5: 01 PM HAND CEMENTER documented in this encounter Results * US PELVIS COMPLETE (07/22/2006 5:01 PM HAND CEMENTER) Anatomical Region Laterality Modality Pelvis Other 07/22/2006 5:01 PM HAND CEMENTER Narrative 07/22/2006 5:01 PM HAND CEMENTER ULTRASOUND OF PELVIS HISTORY: Pelvic pain, vaginal bleeding. Ultrasound of the pelvis was performed. The uterus measures 8.0 cm in length x 34.0 cm in AP dimension x 6.0 cm in transverse dimension. Both ovaries are normal in size and appearance. The right ovary measures 2.9 x 1.9 x 3.5 cm and the left ovary measures 2.2 x 1.5 x 3.3 cm. Endometrium measures 6 mm. No free fluid is identified. IMPRESSION: Unremarkable exam. Dictated By: Daniel Garcia M.D. Electronically Signed By: Daniel Garcia M.D. Date Signed: 07/28/06 [facility] Procedure Note 07/19/2009 ULTRASOUND OF PELVIS HISTORY: Pelvic pain, vaginal bleeding. Ultrasound of the pelvis was performed. The uterus measures 8.0 cm inlength x 34.0 cm in AP dimension x 6.0 cm in transverse dimension. Both ovaries are normal in size andappearance. The right ovary measures 2.9 x 1.9 x 3.5 cm and the left ovary measures 2.2 x 1.5 x 3.3cm. Endometrium measures 6 mm. No free fluid is identified. IMPRESSION: Unremarkable exam. Dictated By: Daniel Garcia M.D. Electronically Signed By: Daniel Garcia M.D. Date Signed: 07/28/06 [facility] us Nick Luna MD ORDERABLES Final Result documented in this encounter Visit Diagnoses Diagnosis Other specified noninflammatory disorder of vagina- Primary documented in this encounter Care Teams Real Estate Office Supervisor Relationship Specialty Start Date End Date Wilfrid Lopez MD PCP - General Family Practice 07/15/12 documented as of this encounter
--- OUTSIDE RECORDS SUMMARY | 2025-03-08 15:36 | XMS_ITS | Encounter Summary ---
Author Organization [facility] Address [address] [place] [address] Care Team Providers Care Aerospace Engineer Officer Armament Name Role Phone Wilfrid Loepz MD Primary Care Provider Encounter Details Date Type Department Care Team (Late st Contact Info) Description 05/30/2003 Outpatient [facility] Family Medicine[address] [address] Demetrius Dempsey MD [address] [phone] Social History Tobacco Use Types Packs/Day Years Used Date Smoking Tobacco: Never Assessed Comments Unknown Sex and Gender Information Value Date Recorded Sex Assigned at Not on file Legal Sex Female 6:21 AM CITY PLANNER Gender Identity Not on file Sexual Orientation Not on file documented as of this encounter Plan of Treatment Not on file documented as of this encounter Visit Diagnoses Not on filedocumented in this encounter Care Teams Aerospace Engineer Officer Armament Relationship Specialty Start Date End Date Wilfrid Lopez MD PCP - General Family Practice 07/15/12 documented as of this encounter
--- OUTSIDE RECORDS SUMMARY | 2025-03-08 15:36 | XMS_ITS | Encounter Summary ---
Author Organization [facility] Address [address] [place] [address] Care Team Providers Care Cloth Mercerizing Supervisor Name Role Phone Wilfrid Lopez MD Primary Care Provider [phone]- [phone] Encounter Details Date Type Department Care Team (Latest Contact Info) Description 10/26/2003 Outpatient Historical [facility] PULMONARY PHYSICAL THERAPIST [address] [place] [address] Tom Mccann MD NO ADDRESS ON FILE SUPERVIS NORMAL 1ST PREG (Primary Dx) Social History Tobacco Use Types Packs/Day Years Used Date Smoking Tobacco: Never Assessed Comments Unknown Sex and Gender Information Value Date Recorded Sex Assigned at Not on file Legal Sex Female 6:21 AM CUSTOMER SUPPORT REPRESENTATIVE Gender Identity Not on file Sexual Orientation Not on file documented as of this encounter Plan of Treatment Not on file documented as of this encounter Visit Diagnoses Diagnosis Supervision of normal first - Primary documented in this encounter Care Teams Cloth Mercerizing Supervisor Relationship Specialty Start Date End Date Wilfrid Lopez MD PCP - General Family Practice 07/15/12 documented as of this encounter
--- OUTSIDE RECORDS SUMMARY | 2025-03-08 15:36 | XMS_ITS | Encounter Summary ---
Author Organization [facility] Address [address] [place] [address] Care Team Providers Care Wire Weaver Helper Name Role Phone Wilfrid Lopez MD Primary Care Provider [phone] Encounter Details Date Type Department Care Team (Latest Contact Info) Description 09/10/2003 Outpatient Historical [facility] Radiology-[address] [phone] Tom Mccann MD NO ADDRESS ON FILE SUPERVIS NORMAL 1ST PREG (Primary Dx) Social History Tobacco Use Types Packs/Day Years Used Date Smoking Tobacco: Never Assessed Comments Unknown Sex and Gender Information Value Date Recorded Sex Assigned at Not on file Legal Sex Female 6:21 AM ASSEMBLY MECHANIC Gender Identity Not on file Sexual Orientation Not on file documented as of this encounter Plan of Treatment Not on file documented as of this encounter Visit Diagnoses Diagnosis Supervision of normal first - Primary documented in this encounter Care Teams Wire Weaver Helper Relationship Specialty Start Date End Date Wilfrid Lopez MD PCP - General Family Practice 07/15/12 documented as of this encounter
--- OUTSIDE RECORDS SUMMARY | 2025-03-08 15:36 | XMS_ITS | Encounter Summary ---
Author Organization [facility] Address [address] [place] [address] Care Team Providers Care Finishing Room Supervisor Name Role Phone Wilfrid Lopez MD Primary Care Provider [phone] Encounter Details Date Type Department Care Team (Latest Contact Info) Description 04/18/2003 Outpatient Historical [facility] Medicine- [address] [address] Demetrius Dempsey MD [address] [address] SUPERVIS OTHER NORMAL PREG (Primary Dx); PREG W OTHER POOR OBSTETRIC HISTORY Social History Tobacco Use Types Packs/Day Years Used Date Smoking Tobacco: Never Assessed Comments Unknown Sex and Gender Information Value Date Recorded Sex Assigned at Not on file Legal Sex Female 6:21 AM METER AND REGULATOR SHOP SUPERVISOR Gender Identity Not on file Sexual Orientation Not on file documented as of this encounter Plan of Treatment Not on file documented as of this encounter Visit Diagnoses Diagnosis Supervision of other normal - Primary with other poor obstetric history(V23.49) with other poor obstetric history documented in this encounter Care Teams Finishing Room Supervisor Relationship Specialty Start Date End Date Wilfrid Lopez MD PCP - General Family Practice 07/15/12 documented as of this encounter
--- OUTSIDE RECORDS SUMMARY | 2025-03-08 15:36 | XMS_ITS | Encounter Summary ---
Author Organization [facility] Address [address] [place] [address] Care Team Providers Care Pharmaceutical Laboratory Technician Name Role Phone Wilfrid Lopez MD Primary Care Provider [phone] Encounter Details Date Type Department Care Team (Latest Contact Info) Description 04/12/2007 Outpatient Historical [facility] Medicine [address] [address] Tom Zayas MD [address] [place] [address] Supervision of Other Normal (Primary Dx) Social History Tobacco Use Types Packs/Day Years Used Date Smoking Tobacco: Never Assessed Comments Unknown Sex and Gender Information Value Date Recorded Sex Assigned at Not on file Legal Sex Female 6:21 AM MICROWAVE ENGINEER Gender Identity Not on file Sexual Orientation Not on file documented as of this encounter Plan of Treatment Not on file documented as of this encounter Visit Diagnoses Diagnosis Supervision of other normal - Primary documented in this encounter Care Teams Pharmaceutical Laboratory Technician Relationship Specialty Start Date End Date Wilfrid Lopez MD PCP - General Family Practice 07/15/12 documented as of this encounter
--- OUTSIDE RECORDS SUMMARY | 2025-03-08 15:36 | XMS_ITS | Encounter Summary ---
Author Organization [facility] Address [address] [place] [address] Care Team Providers Care Duster Tender Name Role Phone Wilfrid Lopez MD Primary Care Provider Encounter Details Date Type Department Care Team (Latest Contact Info) Description 04/28/2005 Outpatient Historical [facility] Medicine [place] [address] [phone] Michelle Whelan, [facility] [address] [phone] SUPERVIS OTHER NORMAL PREG (Primary Dx) Social History Tobacco Use Types Packs/Day Years Used Date Smoking Tobacco: Never Assessed Comments Unknown Sex and Gender Information Value Date Recorded Sex Assigned at Not on file Legal Sex Female 6:21 AM TRANSFER CLERK Gender Identity Not on file Sexual Orientation Not on file documented as of this encounter Plan of Treatment Not on file documented as of this encounter Visit Diagnoses Diagnosis Supervision of other normal - Primary documented in this encounter Care Teams Duster Tender Relationship Specialty Start Date End Date Wilfrid Lopez MD PCP - General Family Practice 07/15/12 documented as of this encounter
--- OUTSIDE RECORDS SUMMARY | 2025-03-08 15:36 | XMS_ITS | Encounter Summary ---
Author Organization [facility] Address [address] [place] [address] Care Team Providers Care Chief Electrician Name Role Phone Wilfrid Lopez MD Primary Care Provider [phone] Encounter Details Date Type Department Care Team (Latest Contact Info) Description 10/10/2003 Outpatient Historical [facility] CREASING MACHINE OPERATOR [address] [place] [address] Tom Mccann MD NO ADDRESS ON FILE SUPERVIS NORMAL 1ST PREG (Primary Dx) Social History Tobacco Use Types Packs/Day Years Used Date Smoking Tobacco: Never Assessed Comments Unknown Sex and Gender Information Value Date Recorded Sex Assigned at Not on file Legal Sex Female 6:21 AM TUMBLERS SUPERVISOR Gender Identity Not on file Sexual Orientation Not on file documented as of this encounter Plan of Treatment Not on file documented as of this encounter Visit Diagnoses Diagnosis Supervision of normal first - Primary documented in this encounter Care Teams Chief Electrician Relationship Specialty Start Date End Date Wilfrid Lopez MD PCP - General Family Practice 07/15/12 documented as of this encounter
--- OUTSIDE RECORDS SUMMARY | 2025-03-08 15:36 | XMS_ITS | Encounter Summary ---
Author Organization [facility] Address [address] [place] [address] Care Team Providers Care Back Shoe Worker Name Role Phone Wilfrid Lopez MD Primary Care Provider [phone] Encounter Details Date Type Department Care Team (Latest Contact Info) Description 03/22/2004 Outpatient Historical [facility] [address] [place] [address] AMBULANCE, [facility] POISONING-ANTIHYPERT EN AGENT (Primary Dx) Social History Tobacco Use Types Packs/Day Years Used Date Smoking Tobacco: Never Assessed Comments Unknown Sex and Gender Information Value Date Recorded Sex Assigned at Not on file Legal Sex Female 6:21 AM POT PUSHER Gender Identity Not on file Sexual Orientation Not on file documented as of this encounter Plan of Treatment Not on file documented as of this encounter Visit Diagnoses Diagnosis Poisoning by other antihypertensive agents(972.6)- Primary Poisoning by other antihypertensive agents documented in this encounter Care Teams Back Shoe Worker Relationship Specialty Start Date End Date Wilfrid Lopez MD PCP - General Family Practice 07/15/12 documented as of this encounter
--- OUTSIDE RECORDS SUMMARY | 2025-03-08 15:36 | XMS_ITS | Encounter Summary ---
Author Organization [facility] Address [address] [place] [address] Care Team Providers Care Chip Machine Operator Name Role Phone Wilfrid Lopez MD Primary Care Provider [phone] Encounter Details Date Type Department Care Team (Latest Contact Info) Description 09/03/2003 Outpatient Historical [facility] Maternal and Medicine-Alannajonny natarajan [address] [place] [address] Jaison Kelly II, MD [address] [place] [phone] PREG COMPL NEC-ANTEPART (Primary Dx); MIGRAINE NOS INTRACTABLE; FAMILY HERED DIS-ANTEPART; DOWN SYNDROME Social History Tobacco Use Types Packs/Day Years Used Date Smoking Tobacco: Never Assessed Comments Unknown Sex and Gender Information Value Date Recorded Sex Assigned at Not on file Legal Sex Female 6:21 AM DIRECTOR SELECTION AND ADMINISTRATION Gender Identity Not on file Sexual Orientation Not on file documented as of this encounter Plan of Treatment Not on file documented as of this encounter Visit Diagnoses Diagnosis Other specified complication, antepartum(646.83)- Primary Other specified complication, antepartum Migraine, unspecified, with intractable migraine, so stated, without mention of status migrainosus Hereditary disease in family possibly affecting fetus, affecting management of mother, antepartum condition or complication Down's syndrome documented in this encounter Care Teams Chip Machine Operator Relationship Specialty Start Date End Date Wilfrid Lopez MD PCP - General Family Practice 07/15/12 documented as of this encounter
--- OUTSIDE RECORDS SUMMARY | 2025-03-08 15:36 | XMS_ITS | Encounter Summary ---
Author Organization [facility] Address [address] [place] [address] Care Team Providers Care Fingernail Former Name Role Phone Wilfrid Lopez MD Primary Care Provider Encounter Details Date Type Department Care Team (Latest Contact Info) Description 08/27/2003 Outpatient Historical [facility] ACCOUNTS RECEIVABLE BOOKKEEPER [address] [place] [address] Tom Mccann MD NO ADDRESS ON FILE SUPERVIS NORMAL 1ST PREG (Primary Dx) Social History Tobacco Use Types Packs/Day Years Used Date Smoking Tobacco: Never Assessed Comments Unknown Sex and Gender Information Value Date Recorded Sex Assigned at Not on file Legal Sex Female 6:21 AM BARREL LEVELER Gender Identity Not on file Sexual Orientation Not on file documented as of this encounter Plan of Treatment Not on file documented as of this encounter Visit Diagnoses Diagnosis Supervision of normal first - Primary documented in this encounter Care Teams Fingernail Former Relationship Specialty Start Date End Date Wilfrid Lopez MD PCP - General Family Practice 07/15/12 documented as of this encounter
--- OUTSIDE RECORDS SUMMARY | 2025-03-08 15:36 | XMS_ITS | Encounter Summary ---
Author Organization [facility] Address [address] [place] [address] Care Team Providers Care Poultry Killer Name Role Phone Wilfrid Lopez MD Primary Care Provider Encounter Details Date Type Department Care Team (Latest Contact Info) Description 03/28/2003 Outpatient Historical [facility] Family Medicine[address] [address] Demetrius Dempsey MD [address] [address] SUPERVIS OTHER NORMAL PREG (Primary Dx) Social History Tobacco Use Types Packs/Day Years Used Date Smoking Tobacco: Never Assessed Comments Unknown Sex and Gender Information Value Date Recorded Sex Assigned at Not on file Legal Sex Female 6:21 AM ESTIMATOR BINDING Gender Identity Not on file Sexual Orientation Not on file documented as of this encounter Plan of Treatment Not on file documented as of this encounter Visit Diagnoses Diagnosis Supervision of other normal - Primary documented in this encounter Care Teams Poultry Killer Relationship Specialty Start Date End Date Wilfrid Lopez MD PCP - General Family Practice 07/15/12 documented as of this encounter
--- OUTSIDE RECORDS SUMMARY | 2025-03-08 15:36 | XMS_ITS | Clinical Summary ---
Author Organization [facility] Address [address] [address] Care Team Providers Care Rn Case Manager Hospice Name Role Phone Tito Emmanuel Primary Care Provider [phone] Allergies Active Allergy Reactions Criticality Noted Date Comments Codeine Hives,Nausea and Vomiting High 07/02/2008 Tramadol Other (See Comments) ,Renal Dysfunctions Medium 06/18/2009 Medications ibuprofen (MOTRIN) 200 mg tablet Take 200 mg by mouth every 6 hours as needed for Pain, Mild. 0 Active acetaminophen (TYLENOL ORAL) Take by mouth. 0 Active Epclusa 400-100 mg Tablet 2 Active multivitamin (DAILY-RUTH) tablet Take 1 Tablet by mouth daily. Active varenicline (CHANTIX) 1 mg TabletIndications: Cigarette nicotine dependence, uncomplicated Take 1 Tablet (1 mg) by mouth 2 times daily. 60 Tablet 5 2 Active Active Problems Problem Noted Date Diagnosed Date Chronic hepatitis C virus genotype 2 infection 0 12/18/2021 Chronic daily headache 02/27/2020 Numbness and tingling of right side of face 01/30 Chiari malformation type I 04/29/2011 Medullary sponge kidney 04/28/2011 Anemia 09/30/2009 Bipolar affective disorder 09/23/2009 Migraine 09/23/2009 PTSD (post-traumatic stress disorder) 09/23/2009 ADD (attention deficit disorder with hyperactivi ty) 09/23/2009 Multiple personality disorder 09/23/2009 Encounters Date Type Department Care Team Description 03/06/2025 External Device Data ST[facility] ABSTRACTION Provider, Abstract 03/06/2025 External Device Data ST[facility] ABSTRACTION Provider, Abstract 03/06/2025 External Device Data ST[facility] ABSTRACTION Provider, Abstract 03/05/2025 7:12 PM CDT - 03/05/2025 7:47 PM CDT Emergency [facility] Emergency Medicine [address] [place] [address] John Vargas, DO Hypokalemia (Primary Dx); Dark stools Discharge Disposition: Home or Self Care 03/05/2025 Travel 01/30/2025 External Device Data STL ABSTRACTION Provider, Abstract 01/23/2025 External Device Data ST[facility] ABSTRACTION Provider, Abstract 01/18/2025 External Device Data STL ABSTRACTION Provider, Abstract 01/02/2025 External Device Data ST[facility] ABSTRACTION Provider, Abstract 12/12/2024 External Device Data ST[facility] ABSTRACTION Provider, Abstract from Last 3 Months Immunizations Immunization Administration Dates Next Due (TDVAX)(7 [...] Grandmother Heart Disease Paternal Grandmother Cancer Sister 1 cervical cancer Relation Name Status Comments Father Mother Alive Paternal Grandfather Paternal Grandmother Sister 1 Sister 2 Alive Sister 3 Alive Social History Tobacco Use Types Packs/Day Years Used Date Smoking Tobacco: Every Day Cigarettes Smokeless Tobacco: Never Tobacco Cessation:Ready to Q uit: Yes; Counseling Given: Yes Alcohol Use Standard Drinks/Week Comments No [...] How often do you attend chur or pentecostalism services? More than 4 times per year 04/02/2022 Do you belong to any clubs o r organizations such as catholic groups, unions, fraternal or athletic groups, or [...] 1 04/02/2022 (RETIRED) In the last 12 mon ths, was there a time when you did not have a steady place to sleep or slept in a custodial (including now)? 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 Gender Identity Not on file Sexual Orientation Not on file Last Filed Vital Signs [...] Mass Index 19.63 03/05/2025 4:56 PM CDT Plan of Treatment Health Maintenance Due Date Last Done Comments DTAP/TDAP/TD VACCINES (4 - Tdap) 04/19/2002 04/18/2002, 04/09/1988, 1986 HPV/Cotest (21-29) 2007 CERVICAL CANCER SCREENING 2016 HPV/Cotest (30-65) 2016 PAP SMEAR 2016 05/12/2010 INFLUENZA VACCINE (#1) 2025 07/18/1996 HEPATITIS B VACCINES Completed 12/25/1997, 12/25/1997, 06/20/1997, Additional history exists HPV VACCINES Aged Out No longer eligi ble based on patient's age to complete this topic Procedures Procedure Name Priority Date/Time Associated Diagnosis Comments COMPREHENSIVE METABOLIC PANEL Stat 03/05/2025 5:00 PM CDT CBC WITH DIFFERENTIAL Stat 03/05/2025 5:00 PM CDT from Last 3 Months Results * (ABNORMAL) CBC WITH DIFFERENTIAL (03/05/2025 5:00 PM CDT) WBC 6.9 4.5 - 11.0 K/uL 03/05/2025 5:10 PM CDT [facility] RBC 4.20 4.20 - 5.40 M/uL 03/05/2025 5:10 PM CDT [facility] HEMOGLOBIN 12.6 12.0 - 16.0 g/dL 03/05/2025 5:10 PM CDT [facility] HEMATOCRIT 39.0 36.0 - 46.0 % 03/05/2025 5:10 PM CDT [facility] MCV 92.9 82.0 - 100.0 fL 03/05/2025 5:10 PM CDT [facility] MCH 30.0 27.0 - 34.0 pg 03/05/2025 5:10 PM CDT [facility] MCHC 32.3 31.0 - 37.0 g/dL 03/05/2025 5:10 PM CDT [facility] RDW 14.3 11.0 - 14.5 % 03/05/2025 5:10 PM CDT [facility] RDW-STDEV 48.3 37.0 - 54.0 fL 03/05/2025 5:10 PM CDT [facility] PLATELETS 357 140 - 440 K/uL 03/05/2025 5:10 PM CDT [facility] MPV 9.5 8.9 - 12.8 fL 03/05/2025 5:10 PM CDT [facility] NEUTROPHILS 70 42 - 75 % 03/05/2025 5:10 PM CDT [facility] LYMPHOCYTES 23(L) 24 - 44 % 03/05/2025 5:10 PM CDT [facility] MONOCYTES 6 2 - 10 % 03/05/2025 5:10 PM CDT [facility] EOSINOPHILS 0 0 - 8 % 03/05/2025 5:10 PM CDT [facility] BASOPHILS 0 0 - 1 % 03/05/2025 5:10 PM CDT [facility] IMMATURE GRANULOCYTES 0 0 - 2 % 03/05/2025 5:10 PM CDT [facility] NEUTROPHIL ABSOLUTE 4.86 1.40 - 6.50 K/uL 03/05/2025 5:10 PM CDT [facility] LYMPHOCYTE ABSOLUTE 1.58 1.20 - 4.00 K/uL 03/05/2025 5:10 PM CDT [facility] MONOCYTE ABSOLUTE 0.40 0.10 - 0.60 K/uL 03/05/2025 5:10 PM CDT [facility] EOSINOPHIL ABSOLUTE 0.03 0.00 - 0.70 K/uL 03/05/2025 5:10 PM CDT [facility] BASOPHILS ABSOLUTE 0.03 0.00 - 0.20 K/uL 03/05/2025 5:10 PM CDT [facility] IMMATURE GRANULOCYTES ABSOLUTE 0.01 0.00 - 0.10 K/uL 03/05/2025 5:10 PM CDT [facility] Blood Collection / Unknown 03/05/2025 5:00 PM CDT 03/05/2025 5:07 PM CDT us John Messinao DO HEMATOLOGY OR DERABLES Final Result [facility] CLIA # [id number] [address] [place] [id number] * (ABNORMAL) COMPREHENSIVE METABOLIC PANEL (03/05/2025 5:00 PM CDT) SODIUM 136 136 - 145 mmol/L 03/05/2025 5:37 PM CDT [facility] POTASSIUM 3.4(L) 3.5 - 5.1 mmol/L 03/05/2025 5:37 PM [facility] CHLORIDE 101 98 - 107 mmol/L 03/05/2025 5:37 PM [facility] CO2 22 22 - 29 mmol/L 03/05/2025 5:37 PM [facility] CALCIUM 9.1 8.6 - 10.0 mg/dL 03/05/2025 5:37 PM [facility] BUN 7 6 - 20 mg/dL 03/05/2025 5:37 PM [facility] CREATININE 1.21(H) 0.51 - 0.95 mg/dL 03/05/2025 5:37 PM [facility] GLUCOSE 118(H) 74 - 99 mg/dL 03/05/2025 5:37 PM [facility] TOTAL PROTEIN 7.0 6.6 - 8.7 g/dL 03/05/2025 5:37 PM [facility] ALBUMIN 4.3 3.5 - 5.2 g/dL 03/05/2025 5:37 PM [facility] BILIRUBIN TOTAL 0.4 0.0 - 1.2 mg/dL 03/05/2025 5:37 PM [facility] ALKALINE PHOSPHATASE 97 35 - 104 U/L 03/05/2025 5:37 PM [facility] AST 15 10 - 35 U/L 03/05/2025 5:37 PM [facility] ALT 10 10 - 35 U/L 03/05/2025 5:37 PM [facility] GFR 59(L) >=60 mL/min/1.7 3 sq meter 03/05/2025 5:37 PM [facility] Comment:eGFR calculated with 2020 CKD-EPI equation. Vegetarian diet, extremely high or low muscle mass, and may affect results. Cystatin C with Glomerular Filtration Rate is a suitable alternative for these patients. ANION GAP 13 10 - 20 mmol/L 03/05/2025 5:37 PM [facility] Blood Collection / Unknown 03/05/2025 5:00 PM CDT 03/05/2025 5:07 PM CDT us John Merida DO CHEMISTRY ORD ERABLES Final Result [facility] # [id number] [address] [place] [address] from Last 3 Months Care Teams Rn Case Manager Hospice Relationship Specialty Start Date End Date Tito Emmanuel DO [address] [place] [address] PCP - General Family Practice 06/26/21
--- OUTSIDE RECORDS SUMMARY | 2025-03-08 15:36 | XMS_ITS | Encounter Summary ---
Author Organization [facility] Address [address] [place] [address] Care Team Providers Care Overnight Caregiver Name Role Phone Wilfrid Lopez MD Primary Care Provider [phone] Encounter Details Date Type Department Care Team (Latest Contact Info) Description 06/02/2005 Outpatient Historical [facility] Medicine [address] [address] Tom Zayas MD [address] [place] [address] SUPERVIS OTHER NORMAL PREG (Primary Dx) Social History Tobacco Use Types Packs/Day Years Used Date Smoking Tobacco: Never Assessed Comments Unknown Sex and Gender Information Value Date Recorded Sex Assigned at Not on file Legal Sex Female 6:21 AM DRIVER Gender Identity Not on file Sexual Orientation Not on file documented as of this encounter Plan of Treatment Not on file documented as of this encounter Visit Diagnoses Diagnosis Supervision of other normal - Primary documented in this encounter Care Teams Overnight Caregiver Relationship Specialty Start Date End Date Wilfrid Lopez MD PCP - General Family Practice 07/15/12 documented as of this encounter
--- OUTSIDE RECORDS SUMMARY | 2025-03-08 15:36 | XMS_ITS | Encounter Summary ---
Author Organization [facility] Address [address] [place] [address] Care Team Providers Care Jointer Machine Operator Name Role Phone Tito Emmanuel DO Primary Care Provider [phone] Encounter Details Date Type Department Care Team [...] week 04/02/2022 How often do you attend [facility] or yazidi services? More than 4 times per year 04/02/2022 Do you belong to any clubs o r organizations such as jew groups, unions, fraternal or athletic groups, or [...] place to sleep or slept in a senior care (including now)? 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
--- OUTSIDE RECORDS SUMMARY | 2025-03-08 15:36 | XMS_ITS | Encounter Summary ---
Author Organization [facility] Address [address] [facility] [address] Altman: Epic Prelude ADT [place] [address] Care Team Providers Care Tube And Rod Straightener Name Role Phone KaylenTito ruano Primary Care Provider [phone] Encounter Details Date Type Department Care Team (Latest Contact Info) Description 03/05/2025 Travel Social History Tobacco Use Types Packs/Day Years [...] week 04/02/2022 How often do you attend [facility] or hoahaoism services? 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
--- OUTSIDE RECORDS SUMMARY | 2025-03-08 15:36 | XMS_ITS | Encounter Summary ---
Author Organization [facility] Address [address] [place] [address] Care Team Providers Care Aoc Aadc Operations Staff Officer Name Role Phone Wilfrid Lopez MD Primary Care Provider Encounter Details Date Type Department Care Team (Latest Contact Info) Description 05/08/2005 Outpatient Historical [facility] Medicine [place] [address] [phone] Michelle Whelan, [facility] [address] [phone] SUPERVIS OTHER NORMAL PREG (Primary Dx) Social History Tobacco Use Types Packs/Day Years Used Date Smoking Tobacco: Never Assessed Comments Unknown Sex and Gender Information Value Date Recorded Sex Assigned at Not on file Legal Sex Female 6:21 AM 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
--- OUTSIDE RECORDS SUMMARY | 2025-03-08 15:36 | XMS_ITS | Encounter Summary ---
Author Organization [facility] Address [address] [place] [address] Care Team Providers Care Room Server Name Role Phone Wiflrid Lopez MD Primary Care Provider [phone] Encounter Details Date Type Department Care Team (Latest Contact Info) Description 11/12/2003 Inpatient Historical [facility] Tom Mccann MD NO ADDRESS ON FILE ABNL HEART RATE/RHYTHM,DELIV (Primary Dx) Social History Tobacco Use Types Packs/Day Years Used Date Smoking Tobacco: Never Assessed Comments Unknown Sex and Gender Information Value Date Recorded Sex Assigned at Not on file Legal Sex Female 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
--- OUTSIDE RECORDS SUMMARY | 2025-03-08 15:36 | XMS_ITS | Encounter Summary ---
Author Organization [facility] Address [address] [place] [address] Care Team Providers Care Risk Control Analyst Name Role Phone Wilfrid Lopez MD Primary Care Provider [phone] Encounter Details Date Type Department Care Team (Latest Contact Info) Description 10/10/2003 Outpatient Historical [facility] Tom Mccann MD NO ADDRESS ON FILE SUPRV HIGH-RISK PREG NOS (Primary Dx) Social History Tobacco Use Types Packs/Day Years Used Date Smoking Tobacco: Never Assessed Comments Unknown Sex and Gender Information Value Date Recorded Sex Assigned at Not on file Legal Sex Female 6:21 AM PHOTOGRAPHER Gender Identity Not on file Sexual Orientation Not on file documented as of this encounter Plan of Treatment Not on file documented as of this encounter Visit Diagnoses Diagnosis Unspecified high-risk - Primary documented in this encounter Care Teams Risk Control Analyst Relationship Specialty Start Date End Date Wilfrid Lopez MD PCP - General Family Practice 07/15/12 documented as of this encounter
--- OUTSIDE RECORDS SUMMARY | 2025-03-08 15:36 | XMS_ITS | Encounter Summary ---
Author Organization [facility] Address [address] [facility] Attn: Epic Prelude ADT [place] [address] Care Team Providers Care Narrow Gauge Operator Name Role Phone Wilfrid Lopez MD Primary Care Provider [phone] Encounter Details Date Type Department Care Team (Late st Contact Info) Description 09/11/2003 Outpatient Historical Tom Mccann MD NO ADDRESS ON FILE THRT MADHAVI LABOR-ANTEPART (Primary Dx) Social History Tobacco Use Types Packs/Day Years Used Date Smoking Tobacco: Never Assessed Comments Unknown Sex and Gender Information Value Date Recorded Sex Assigned at Not on file Legal Sex Female 6:21 AM MOTION PICTURE SET GRIP Gender Identity Not on file Sexual Orientation Not on file documented as of this encounter Plan of Treatment Not on file documented as of this encounter Visit Diagnoses Diagnosis Threatened premature labor, antepartum(644.03)- Primary Threatened premature labor, antepartum documented in this encounter Care Teams Narrow Gauge Operator Relationship Specialty Start Date End Date Wilfrid Lopez MD PCP - General Family Practice 07/15/12 documented as of this encounter
--- OUTSIDE RECORDS SUMMARY | 2025-03-08 15:36 | XMS_ITS | Encounter Summary ---
Author Organization [facility] Address [address] [place] [address] Care Team Providers Care Physical Therapy Director Name Role Phone Wilfrid Lopez MD Primary Care Provider [phone] Encounter Details Date Type Department Care Team (Latest Contact Info) Description 12/26/2003 Outpatient Historical [facility] [place] [address] [place] [address] Tom Mccann MD NO ADDRESS ON FILE SCREENING MAL NEOP-CERVIX (Primary Dx) Social History Tobacco Use Types Packs/Day Years Used Date Smoking Tobacco: Never Assessed Comments Unknown Sex and Gender Information Value Date Recorded Sex Assigned at Not on file Legal 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
--- OUTSIDE RECORDS SUMMARY | 2025-03-08 15:36 | XMS_ITS | Encounter Summary ---
Author Organization [facility] Address [address] [place] [address] Care Team Providers Care Silver Plater Name Role Phone Wilfrid Lopez MD Primary Care Provider [phone] Encounter Details Date Type Department Care Team (Latest Contact Info) Description 10/12/2003 Outpatient Historical [facility] Maternal and Medicine-Alannajonny natarajan [address] [place] [phone] Jaison Kelly II, MD [address] [place] [phone] PREG COMPL NEC-ANTEPART (Primary Dx); MIGRAINE NOS INTRACTABLE; FAMILY HERED DIS-ANTEPART; DOWN SYNDROME Social History Tobacco Use Types Packs/Day Years Used Date Smoking Tobacco: Never Assessed Comments Unknown Sex and Gender Information Value Date Recorded Sex Assigned at Not on file Legal Sex Female 6:21 AM PULLBOAT ENGINEER Gender Identity Not on file Sexual [...] syndrome documented in this encounter Care Teams Silver Plater Relationship Specialty Start Date End Date Wilfrid Lopez MD PCP - General Family Practice 07/15/12 documented as of this encounter
--- OUTSIDE RECORDS SUMMARY | 2025-03-08 15:36 | XMS_ITS | Encounter Summary ---
Author Organization [facility] Address [address] [place] [address] Care Team Providers Care Senior Ui Designer Name Role Phone Wilfrid Lopez MD Primary Care Provider [phone] Encounter Details Date Type Department Care Team (Latest Contact Info) Description 05/23/2003 Outpatient Historical [facility] CONTINUOUS CONVEYOR SCREEN DRIER [address] [place] [address] Tom Mccann MD NO ADDRESS ON FILE SUPERVIS NORMAL 1ST PREG (Primary Dx) Social History Tobacco Use Types Packs/Day Years Used Date Smoking Tobacco: Never Assessed Comments Unknown Sex and Gender Information Value Date Recorded Sex Assigned at Not on file Legal Sex Female 6:21 AM COMPONENTS ENGINEER Gender Identity Not on file Sexual Orientation Not on file documented as of this encounter Plan of Treatment Not on file documented as of this encounter Visit Diagnoses Diagnosis Supervision of normal first - Primary documented in this encounter Care Teams Senior Ui Designer Relationship Specialty Start Date End Date Wilfrid Lopez MD PCP - General Family Practice 07/15/12 documented as of this encounter
--- OUTSIDE RECORDS SUMMARY | 2025-03-08 15:36 | XMS_ITS | Encounter Summary ---
Author Organization [facility] Address [address] [place] [address] Care Team Providers Care Active Directory Engineer Name Role Phone Wilfrid Lopez MD Primary Care Provider Encounter Details Date Type Department Care Team (Latest Contact Info) Description 05/08/2005 Outpatient Historical [facility] Medicine [place] [address] [phone] Michelle Whelan, [facility] [address] [phone] SUPERVIS OTHER NORMAL PREG (Primary Dx) Social History Tobacco Use Types Packs/Day Years Used Date Smoking Tobacco: Never Assessed Comments Unknown Sex and Gender Information Value Date Recorded Sex Assigned at Not on file Legal Sex Female 6:21 AM BOTTLING ATTENDANT Gender Identity Not on file Sexual Orientation Not on file documented as of this encounter Plan of Treatment Not on file documented as of this encounter Visit Diagnoses Diagnosis Supervision of other normal - Primary documented in this encounter Care Teams Active Directory Engineer Relationship Specialty Start Date End Date Wilfrid Lopez MD PCP - General Family Practice 07/15/12 documented as of this encounter
--- OUTSIDE RECORDS SUMMARY | 2025-03-08 15:36 | XMS_ITS | Encounter Summary ---
Author Organization [facility] Address [address] [place] [address] Care Team Providers Care Chief Procurement Officer Name Role Phone Wilfrid Lopez MD Primary Care Provider [phone] Encounter Details Date Type Department Care Team (Latest Contact Info) Description 08/27/2003 Outpatient Historical [facility] Tom Mccann MD NO ADDRESS ON FILE SUPERVIS NORMAL 1ST PREG (Primary Dx) Social History Tobacco Use Types Packs/Day Years Used Date Smoking Tobacco: Never Assessed Comments Unknown Sex and Gender Information Value Date Recorded Sex Assigned at Not on file Legal Sex Female 6: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
--- OUTSIDE RECORDS SUMMARY | 2025-03-08 15:36 | XMS_ITS | Encounter Summary ---
Author Organization [facility] Address [address] [place] [address] Care Team Providers Care It Professional Name Role Phone Wilfrid Lopez MD Primary Care Provider [phone] Encounter Details Date Type Department Care Team (Late st Contact Info) Description 04/18/2007 Emergency [facility] Emergency Department [address] [place] [address] WiTonny spence III G, DO NO ADDRESS ON FILE Spotting Complicating , Antepartum Condition or Complication (Primary Dx) Social History Tobacco Use Types Packs/Day Years Used Date Smoking Tobacco: Never Assessed Comments Unknown Sex and Gender Information Value Date Recorded Sex Assigned at Not on file Legal 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 Gender Identity Not on file Sexual Orientation Not on file documented as of this encounter Plan of Treatment Not on file documented as of this encounter Procedures Procedure Name Priority Date/Time Associated Diagnosis Comments WET PREP GENITAL Routine 04/19/2007 12:4 0 AM CDT CBC WITH DIFFERENTIAL Routine 04/18/2007 10:05 PM CDT HCG QUANTITATIVE, BLOOD Routine 04/18/2007 10:05 PM CDT BASIC METABOLIC PANEL Routine 04/18/2007 10:05 PM CDT US OB GREATER THAN 14 WKS SINGLE + AMNIO Routine 04/18/2007 9:00 PM CDT documented in this encounter Results * (ABNORMAL) WET PREP GENITAL (04/19/2007 12:40 AM CDT) WET PREP GENITAL None Observed None Observed INTERFACE SYSTEM WET YEAST None Observed None Observed INTERFACE SYSTEM WET CLUE CELLS Present(A) None Observed INTERFACE SYSTEM 04/19/2007 12:4 0 AM CDT Tonny Varela III, DO MICROBIOLOGY - GENERAL ORDERABLES Edited Performing Organization Address [facility] Phone Number INTERFACE SYSTEM Refer to clinic/hospital department * (ABNORMAL) BASIC METABOLIC PANEL (04/18/2007 10:05 PM CDT) GLUCOSE 97 70 - 110 mg/dL INTERFACE SYSTEM BUN 12 7 - 17 mg/dL INTERFACE SYSTEM CREATININE 0.7 0.7 - 1.2 mg/dL INTERFACE SYSTEM SODIUM 137 136 - 145 mEq/L INTERFACE SYSTEM POTASSIUM 3.8 3.5 - 5.0 mEq/L INTERFACE SYSTEM CHLORIDE 104 95 - 110 mEq/L INTERFACE SYSTEM CO2 29 22 - 32 mmol/l INTERFACE SYSTEM CALCIUM 9.9 8.4 - 10.5 mg/dL INTERFACE SYSTEM ANION GAP 8(L) 9 - 20 mEq/L INTERFACE SYSTEM OSMOLALITY, CALCULATED 282 275 - 295 mOsm/Kg INTERFACE SYSTEM 04/18/2007 10:0 5 PM CDT Miguel Lomax MD CHEMISTRY ORDERABLES Edite d Performing Organization Address [facility] Phone Number INTERFACE SYSTEM Refer to clinic/hospital department * (ABNORMAL) BETA HCG QUANTITATIVE, BLOOD (04/18/2007 10:05 PM CDT) CHORIONIC GONADOTROPIN, TOTAL 00716.0(H) 0.0 - 10.0 mlU/ML INTERFACE SYSTEM Comment: Total HCG levels between 10 mIU/mL and 25 mIU/mL may be indicative of early but need to be correlated with other clinical findings. HCG ranges during normal , as reported by the child attendant, are summarized as follows: Gestational Age Expected hCG Values (mIU/ml) 0.2-1 Weeks 5 - 50 1-2 Weeks 50 - 500 2-3 Weeks 100 - 5,000 3-4 Weeks 1,000 - 50,000 5-6 Weeks 10,000 - 100,000 6-8 Weeks 15,000 - 200,000 2-3 Months 10,000 - 100,000 04/18/2007 10:0 5 PM CDT us Miguel Lomax MD CHEMISTRY ORDERABLES Edite d INTERFACE SYSTEM Refer to clinic/hospital department * CBC WITH DIFFERENTIAL (04/18/2007 10:05 PM CDT) WBC 7.6 4.5 - 12.5 K/ul INTERFACE SYSTEM RBC 4.21 4.20 - 5.40 Mil/ul INTERFACE SYSTEM HEMOGLOBIN 12.8 12.0 - 16.0 g/dL INTERFACE SYSTEM HEMATOCRIT 37.7 36.0 - 46.0 % INTERFACE SYSTEM MCV 89.5 84.0 - 103.0 Fl INTERFACE SYSTEM MCH 30.4 27.0 - 34.0 pg INTERFACE SYSTEM MCHC 34.0 30.0 - 35.0 g/dL INTERFACE SYSTEM RDW 13.5 11.0 - 14.5 % INTERFACE SYSTEM PLATELETS 216 140 - 440 K/ul INTERFACE SYSTEM MPV 10.8 8.9 - 12.8 Fl INTERFACE SYSTEM NEUTROPHILS 60.3 42.2 - 75.2 % INTERFACE SYSTEM LYMPHOCYTES 31.0 24.0 - 44.0 % INTERFACE SYSTEM MONOCYTES 7.1 2.0 - 10.0 % INTERFACE SYSTEM EOSINOPHILS 1.3 0.0 - 7.0 % INTERFACE SYSTEM BASOPHILS 0.3 0.0 - 1.0 % INTERFACE SYSTEM NEUTROPHIL ABSOLUTE 4.6 2.0 - 8.0 K/ul INTERFACE SYSTEM LYMPHOCYTE ABSOLUTE 2.4 1.2 - 4.0 K/ul INTERFACE SYSTEM MONOCYTE ABSOLUTE 0.5 0.1 - 0.6 K/ul INTERFACE SYSTEM EOSINOPHIL ABSOLUTE 0.1 0.0 - 0.7 K/ul INTERFACE SYSTEM BASOPHILS ABSOLUTE 0.0 0.0 - 0.2 K/ul INTERFACE SYSTEM 04/18/2007 10:0 5 PM CDT Miguel Lomax MD HEMATOLOGY ORDERABLES Edit ed INTERFACE SYSTEM Refer to clinic/hospital department * US OB GREATER THAN 14 WKS SINGLE + AMNIO (04/18/2007 9:00 PM CDT) Anatomical Region Laterality Modality Pelvis Other 04/18/2007 9:00 PM CDT Narrative 04/18/2007 9:00 PM CDT Exam: US-OBDate/Time of Exam: Apr 18, 2007 11:47:00 PMHistory: Pelvic Pain. Findings: Comparison ultrasound of the pelvis is dated 07/22/2006. The uterus measures 11.2 x 6.1 x 7.8 cm. Within the uterine fundus is a well defined gestational sacwith decidual reaction. There is no definite subchorionic hemorrhage. A yolk sac and pole isidentified. The estimated gestational age according to gestational sac measurement is 6 weeks and 0days with the estimated gestational age according to crown-rump length of 5 weeks and 5 days. Thereis a heartbeat identified with approximately 116 beats per minute. The right ovary measures 2.4 x 1.8 x 2.8 cm. The left ovary measures 2.6 x 1.6 x 2.0 cm. There is nodefinite free fluid identified within the pelvis. Summary: 1. Single intrauterine gestation identified evidenced by yolk sac and pole. Heart rate is 116beats per minute. 2. No definite subchorionic hemorrhage. 3. Normal ovaries. 4. Overall estimated gestational age is 5 weeks and 6 days. - Dictated By: Chico Prater Jr., M.D. Electronically Signed By: Chico Prater Jr., M.D.MD Date Signed: 04/19/07 SDM Procedure Note 07/21/2009 Exam: US-OBDate/Time of Exam: Apr 18, 2007 11:47:00 PMHistory: Pelvic Pain. Findings: Comparison ultrasound of the pelvis is dated 07/22/2006. The uterus measures 11.2 x 6.1 x 7.8 cm. Within the uterine fundus is awell defined gestational sacwith decidual reaction. There is no definite subchorionic hemorrhage. A yolksac and pole isidentified. The estimated gestational age according to gestational sac measurement is6 weeks and 0days with the estimated gestational age according to crown-rump length of 5 weeks and 5days. Thereis a heartbeat identified with approximately 116 beats per minute. The right ovary measures 2.4 x 1.8 x 2.8 cm. The left ovary measures 2.6 x1.6 x 2.0 cm. There is nodefinite free fluid identified within the pelvis. Summary: 1. Single intrauterine gestation identified evidenced by yolk sac andfetal pole. Heart rate is 116beats per minute. 2. No definite subchorionic hemorrhage. 3. Normal ovaries. 4. Overall estimated gestational age is 5 weeks and 6 days. - Dictated By: Chico Prater Jr., M.D. Electronically Signed By: Chico Prater Jr., M.D.MD Date Signed: 04/19/07 SDM Miguel Lomax MD ORDERABLES Final Resu lt documented in this encounter Visit Diagnoses Diagnosis Spotting complicating , antepartum condition or complication- Primary documented in this encounter Care Teams It Professional Relationship Specialty Start Date End Date Wilfrid Lopez MD PCP - General Family Practice 07/15/12 documented as of this encounter
--- OUTSIDE RECORDS SUMMARY | 2025-03-08 15:36 | XMS_ITS | Encounter Summary ---
Author Organization [facility] Address [address] [place] [address] Care Team Providers Care Cistern Room Operator Name Role Phone Wilfrid Lopez MD Primary Care Provider [phone] Encounter Details Date Type Department Care Team (Latest Contact Info) Description 06/16/2005 Outpatient Historical [facility] Medicine [address] [phone] Tom Zayas MD [address] [place] [address] SUPERVIS OTHER NORMAL PREG (Primary Dx) Social History Tobacco Use Types Packs/Day Years Used Date Smoking Tobacco: Never Assessed Comments Unknown Sex and Gender Information Value Date Recorded Sex Assigned at Not on file Legal Sex Female 6:21 AM 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
--- OUTSIDE RECORDS SUMMARY | 2025-03-08 15:36 | XMS_ITS | Encounter Summary ---
Author Organization [facility] Address [address] Attn: Epic Prelude ADT [place] [address] Care Team Providers Care Supervisor Audit Clerks Name Role Phone Wilfrid Lopez MD Primary Care Provider [phone] Encounter Details Date Type Department Care Team (Late st Contact Info) Description 10/20/2003 Outpatient Historical Tom Mccann MD NO ADDRESS ON FILE THRT [facility] LABOR-ANTEPART (Primary Dx) Social History Tobacco Use Types Packs/Day Years Used Date Smoking Tobacco: Never Assessed Comments Unknown Sex and Gender Information Value Date Recorded Sex Assigned at Not on file 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
--- OUTSIDE RECORDS SUMMARY | 2025-03-08 15:36 | XMS_ITS | Encounter Summary ---
Author Organization [facility] Address [address] [place] [address] Care Team Providers Care Payroll Tax Analyst Name Role Phone Wilfrid Lopez MD Primary Care Provider [phone] Encounter Details Date Type Department Care Team (Latest Contact Info) Description 11/06/2003 Outpatient Historical [facility] GREEN COFFEE BLENDER 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
--- OUTSIDE RECORDS SUMMARY | 2025-03-08 15:36 | XMS_ITS | Encounter Summary ---
Author Organization [facility] Address [address] [place] [address] Care Team Providers Care Court Monitor Name Role Phone Wilfrid Lopez MD Primary Care Provider [phone] Encounter Details Date Type Department Care Team (Latest Contact Info) Description 09/10/2003 Outpatient Historical [facility] DIRECTOR INPATIENT HEADACHE PROGRAM [address] [place] [address] Tom Mccann MD NO ADDRESS ON FILE SUPERVIS NORMAL 1ST PREG (Primary Dx) Social History Tobacco Use Types Packs/Day Years Used Date Smoking Tobacco: Never Assessed Comments Unknown Sex and Gender Information Value Date Recorded Sex Assigned at Not on file Legal Sex Female 6:21 AM HOSPICE MUSIC THERAPY Gender Identity Not on file Sexual Orientation Not on file documented as of this encounter Plan of Treatment Not on file documented as of this encounter Visit Diagnoses Diagnosis Supervision of normal first - Primary documented in this encounter Care Teams Court Monitor Relationship Specialty Start Date End Date Wilfrid Lopez MD PCP - General Family Practice 07/15/12 documented as of this encounter
--- OUTSIDE RECORDS SUMMARY | 2025-03-08 15:36 | XMS_ITS | Encounter Summary ---
Author Organization [facility] Address [address] [facility] Attn: Epic Prelude ADT [place] [address] Care Team Providers Care Unindentured Apprentice Name Role Phone Wilfrid Lopez MD Primary Care Provider [phone] Encounter Details Date Type Department Care Team (Late st Contact Info) Description 08/20/2003 Outpatient Historical Tom Mccann MD NO ADDRESS ON FILE THRT MADHAVI LABOR-ANTEPART (Primary Dx) Social History Tobacco Use Types Packs/Day Years Used Date Smoking Tobacco: Never Assessed Comments Unknown Sex and Gender Information Value Date Recorded Sex Assigned at Not on file 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
--- OUTSIDE RECORDS SUMMARY | 2025-03-08 15:36 | XMS_ITS | Encounter Summary ---
Author Organization [facility] Address [address] [place] [address] Care Team Providers Care Food Or Baggage Handling Rampman Name Role Phone Wilfrid Lopez MD Primary Care Provider Encounter Details Date Type Department Care Team (Late st Contact Info) Description 07/22/2006 Emergency [facility] Emergency Department [address] [place] [address] Nick Luna MD [address] [place], [place] [id number] Menstrual Disorder NEC (Primary Dx) Social History Tobacco Use Types Packs/Day Years Used Date Smoking Tobacco: Never Assessed Comments Unknown Sex and Gender Information Value Date Recorded Sex Assigned at Not on file Legal Sex Female 6:21 AM TREASURY CONSULTANT Gender Identity Not on file Sexual Orientation Not on file documented as of this encounter Plan of Treatment Not on file documented as of this encounter Procedures Procedure Name Priority Date/Time Associated Diagnosis Comments WET PREP GENITAL Routine 07/22/2006 8:31 PM TREASURY CONSULTANT CBC WITH DIFFERENTIAL Routine 07/22/2006 4:00 PM TREASURY CONSULTANT HCG QUANTITATIVE, BLOOD Routine 07/22/2006 4:00 PM TREASURY CONSULTANT BASIC METABOLIC PANEL Routine 07/22/2006 4:00 PM TREASURY CONSULTANT documented in this encounter Results * WET PREP GENITAL (07/22/2006 8:31 PM TREASURY CONSULTANT) WET PREP GENITAL None Observed None Observed INTERFACE SYSTEM WET YEAST None Observed None Observed INTERFACE SYSTEM WET CLUE CELLS None Observed None Observed INTERFACE SYSTEM 07/22/2006 8:31 PM TREASURY CONSULTANT us Nick Luna MD MICROBIOLOGY - GENERAL ORDERAB LES Final Result INTERFACE SYSTEM Refer to clinic/hospital department * HCG QUANTITATIVE, BLOOD (07/22/2006 4:00 PM TREASURY CONSULTANT) CHORIONIC GONADOTROPIN, TOTAL <2.0 0.0 - 10.0 mlU/ML INTERFACE SYSTEM Comment: As of 04 at 12:00 p.m. [facility] has changed the methodology for ThCG, and with this change the reference range has changed from 0-5.0 mIU/ml to 0-10.0 mIU/ml. ----- ----- Total HCG levels between 10 mIU/mL and 25 mIU/mL may be indicative of early but need to be correlated with other clinical findings. HCG ranges during normal , as reported by the redrying machine operator, are summarized as follows: Gestational Age Expected hCG Values (mIU/ml) 0.2-1 Weeks 5 - 50 1-2 Weeks 50 - 500 2-3 Weeks 100 - 5,000 3-4 Weeks 1,000 - 50,000 5-6 Weeks 10,000 - 100,000 6-8 Weeks 15,000 - 200,000 2-3 Months 10,000 - 100,000 07/22/2006 4:00 PM TREASURY CONSULTANT Nick Luna MD CHEMISTRY ORDERABLES Final Res ult Performing Organization Address [facility] Phone Number INTERFACE SYSTEM Refer to clinic/hospital department * BASIC METABOLIC PANEL (07/22/2006 4:00 PM TREASURY CONSULTANT) GLUCOSE 75 70 - 110 mg/dL INTERFACE SYSTEM Comment:Slight Lipemia BUN 14 7 - 17 mg/dL INTERFACE SYSTEM CREATININE 0.8 0.7 - 1.2 mg/dL INTERFACE SYSTEM SODIUM 140 136 - 145 mEq/L INTERFACE SYSTEM POTASSIUM 3.6 3.5 - 5.0 mEq/L INTERFACE SYSTEM CHLORIDE 105 95 - 110 mEq/L INTERFACE SYSTEM CO2 30 22 - 32 mmol/l INTERFACE SYSTEM ANION GAP 9 9 - 20 mEq/L INTERFACE SYSTEM OSMOLALITY, CALCULATED 286 275 - 295 mOsm/Kg INTERFACE SYSTEM CALCIUM 9.4 8.4 - 10.5 mg/dL INTERFACE SYSTEM 07/22/2006 4:00 PM TREASURY CONSULTANT Nick Luna MD CHEMISTRY ORDERABLES Final Res ult Performing Organization Address [facility] Phone Number INTERFACE SYSTEM Refer to clinic/hospital department * CBC WITH DIFFERENTIAL (07/22/2006 4:00 PM TREASURY CONSULTANT) WBC 6.6 4.5 - 12.5 K/ul INTERFACE SYSTEM RBC 4.54 4.20 - 5.40 Mil/ul INTERFACE SYSTEM HEMOGLOBIN 13.2 12.0 - 16.0 g/dL INTERFACE SYSTEM HEMATOCRIT 40.2 36.0 - 46.0 % INTERFACE SYSTEM MCV 88.5 84.0 - 103.0 Fl INTERFACE SYSTEM MCH 29.1 27.0 - 34.0 pg INTERFACE SYSTEM MCHC 32.8 30.0 - 35.0 g/dL INTERFACE SYSTEM RDW 14.1 11.0 - 14.5 % INTERFACE SYSTEM PLATELETS 255 140 - 440 K/ul INTERFACE SYSTEM MPV 11.4 8.9 - 12.8 Fl INTERFACE SYSTEM NEUTROPHILS 55.7 42.2 - 75.2 % INTERFACE SYSTEM LYMPHOCYTES 33.4 24.0 - 44.0 % INTERFACE SYSTEM MONOCYTES 7.0 2.0 - 10.0 % INTERFACE SYSTEM EOSINOPHILS 3.3 0.0 - 7.0 % INTERFACE SYSTEM BASOPHILS 0.6 0.0 - 1.0 % INTERFACE SYSTEM NEUTROPHIL ABSOLUTE 3.7 2.0 - 8.0 K/uL INTERFACE SYSTEM LYMPHOCYTE ABSOLUTE 2.2 1.2 - 4.0 K/ul INTERFACE SYSTEM MONOCYTE ABSOLUTE 0.5 0.1 - 0.6 K/ul INTERFACE SYSTEM EOSINOPHIL ABSOLUTE 0.2 0.0 - 0.7 K/ul INTERFACE SYSTEM BASOPHILS ABSOLUTE 0.0 0.0 - 0.2 K/ul INTERFACE SYSTEM 07/22/2006 4:00 PM TREASURY CONSULTANT us Nick Luna MD HEMATOLOGY ORDERABLES Final Re sult INTERFACE SYSTEM Refer to clinic/hospital department documented in this encounter Visit Diagnoses Diagnosis Other disorder of menstruation and other abnormal bleeding from female genital tract- Primary documented in this encounter Care Teams Food Or Baggage Handling Rampman Relationship Specialty Start Date End Date Wilfrid Lopez MD PCP - General Family Practice 07/15/12 documented as of this encounter
--- OUTSIDE RECORDS SUMMARY | 2025-03-08 15:36 | XMS_ITS | Encounter Summary ---
Author Organization [facility] Address [address] [place] [address] Care Team Providers Care Channel Marketing Manager Name Role Phone Wilfrid Lopez MD Primary Care Provider [phone] Encounter Details Date Type Department Care Team (Latest Contact Info) Description 06/25/2005 Outpatient Historical [facility] Medicine [address] [address] Tom Zayas MD [address] [place] [address] SUPERVIS OTHER NORMAL PREG (Primary Dx) Social History Tobacco Use Types Packs/Day Years Used Date Smoking Tobacco: Never Assessed Comments Unknown Sex and Gender Information Value Date Recorded Sex Assigned at Not on file 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
--- OUTSIDE RECORDS SUMMARY | 2025-03-08 15:37 | XMS_ITS | Encounter Summary ---
Author Organization [facility] Address [address] [place] [address] Care Team Providers Care Horizontal Boring Mill Set Up Operator Name Role Phone Wilfrid Lopez MD Primary Care Provider +1- [phone] Encounter Details Date Type Department Care Team (Late st Contact Info) Description 06/17/2006 Outpatient [facility] Orthoped[facility] [place] [address] [place] [phone] Kris Gutierrez MD [address] [place] [phone] Pain in Joint, Lower Leg (Primary Dx); Pain in Joint, Pelvic Region and Thigh; Other Symptoms Referable to Pelvic Joint Social History Tobacco Use Types Packs/Day Years Used Date Smoking Tobacco: Never Assessed Comments Unknown Sex and Gender Information Value Date Recorded Sex Assigned at Not on file 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
--- OUTSIDE RECORDS SUMMARY | 2025-03-08 15:37 | XMS_ITS | Encounter Summary ---
Author Organization [facility] Address [address] [place] [address] Care Team Providers Care Hearing Aid Repairer Name Role Phone Wilfrid Lopez MD Primary Care Provider [phone]- [phone] Encounter Details Date Type Department Care Team (Latest Contact Info) Description 06/01/2003 Outpatient Historical [facility] IT TELECOM TECHNICIAN 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
--- OUTSIDE RECORDS SUMMARY | 2025-03-08 15:37 | XMS_ITS | Encounter Summary ---
Author Organization [facility] Address [address] [place] [address] Care Team Providers Care Tool Maintenance Technician Name Role Phone Wilfrid Lopez MD Primary Care Provider [phone]- [phone] Encounter Details Date Type Department Care Team (Late st Contact Info) Description 12/01/2007 Outpatient Historical [facility] [address] [place] [address] AMBULANCE, [facility] Social History Tobacco Use Types Packs/Day Years Used Date Smoking Tobacco: Never Assessed Comments Unknown Sex and Gender Information Value Date Recorded Sex Assigned at Not on file 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
--- OUTSIDE RECORDS SUMMARY | 2025-03-08 15:37 | XMS_ITS | Encounter Summary ---
Author Organization [facility] Address [address] [place] [address] Care Team Providers Care Informatics Consultant Name Role Phone Wilfrid Lopez MD Primary Care Provider [phone]- [phone] Encounter Details Date Type Department Care Team (Latest Contact Info) Description 08/06/2003 Outpatient Historical [facility] [address] [place] [address] [place] [address] [facility] [address] [place] [address] MIGRAINE NOS W/O MENTN INTRACTABLE (Primary Dx) Social History Tobacco Use Types Packs/Day Years Used Date Smoking Tobacco: Never Assessed Comments Unknown Sex and Gender Information Value Date Recorded Sex Assigned at Not on file Legal 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
--- OUTSIDE RECORDS SUMMARY | 2025-03-08 15:37 | XMS_ITS | Encounter Summary ---
Author Organization [facility] Address [address] [place] [address] Care Team Providers Care Authorizer Name Role Phone Wilfrid Lopez MD Primary Care Provider Encounter Details Date Type Department Care Team (Late st Contact Info) Description 11/01/2007 Outpatient Historical [facility] Medicine [address] [address] Tom Zayas MD [address] [place] [address] Social History Tobacco Use Types Packs/Day Years Used Date Smoking Tobacco: Never Assessed Comments Unknown Sex and Gender Information Value Date Recorded Sex Assigned at Not on file Legal 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
--- OUTSIDE RECORDS SUMMARY | 2025-03-08 15:37 | XMS_ITS | Encounter Summary ---
Author Organization [facility] Address [address] [place] [address] Care Team Providers Care Risk Mgr Name Role Phone Wilfrid Lopez MD Primary Care Provider [phone] Encounter Details Date Type Department Care Team (Late st Contact Info) Description 03/24/2006 Outpatient Historical [facility] Orthopedics- [address] [place] 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
--- OUTSIDE RECORDS SUMMARY | 2025-03-08 15:37 | XMS_ITS | Encounter Summary ---
Author Organization [facility] Address [address] [place] [address] Care Team Providers Care Document Management Analyst Name Role Phone Wilfrid Lopez MD Primary Care Provider [phone]- [phone] Encounter Details Date Type Department Care Team (Latest Contact Info) Description 08/13/2003 Outpatient Historical [facility] [place] FREIGHT TRAFFIC CONSULTANT [address] [place] [address] Tom Mccann MD NO ADDRESS ON FILE SUPERVIS NORMAL 1ST PREG (Primary Dx) Social History Tobacco Use Types Packs/Day Years Used Date Smoking Tobacco: Never Assessed Comments Unknown Sex and Gender Information Value Date Recorded Sex Assigned at Not on file Legal Sex Female 6:21 AM BONER MEAT Gender Identity Not on file Sexual Orientation Not on file documented as of this encounter Plan of Treatment Not on file documented as of this encounter Visit Diagnoses Diagnosis Supervision of normal first - Primary documented in this encounter Care Teams Document Management Analyst Relationship Specialty Start Date End Date Wilfrid Lopez MD PCP - General Family Practice 07/15/12 documented as of this encounter
--- OUTSIDE RECORDS SUMMARY | 2025-03-08 15:37 | XMS_ITS | Encounter Summary ---
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
--- OUTSIDE RECORDS SUMMARY | 2025-03-08 15:37 | XMS_ITS | Encounter Summary ---
Author Organization [facility] Address [address] [place] [address] Care Team Providers Care Silo Painter Name Role Phone Wilfrid Lopez MD Primary Care Provider [phone]- [phone] Encounter Details Date Type Department Care Team (Late st Contact Info) Description 04/25/2008 Emergency [facility] Emergency Department [address] [place] [address] Ed, Physician NO ADDRESS ON FILE Patrick Howard MD NO ADDRESS ON FILE Social History Tobacco Use Types Packs/Day Years Used Date Smoking Tobacco: Never Assessed Comments Unknown Sex and Gender Information Value Date Recorded Sex Assigned at Not on file Legal Sex Female 6:21 AM DIETICIAN Gender Identity Not on file Sexual Orientation Not on file documented as of this encounter Plan of Treatment Not on file documented as of this encounter Visit Diagnoses Not on filedocumented in this encounter Care Teams Silo Painter Relationship Specialty Start Date End Date Wilfrid Lopez MD PCP - General Family Practice 07/15/12 documented as of this encounter
--- OUTSIDE RECORDS SUMMARY | 2025-03-08 15:37 | XMS_ITS | Encounter Summary ---
Author Organization [facility] Address [address] [place] [address] Care Team Providers Care Medical Office Specialist Name Role Phone Wilfrid Lopez MD Primary Care Provider [phone] Encounter Details Date Type Department Care Team (Late st Contact Info) Description 04/28/2006 Outpatient Historical [facility] Orthopedics- [address] [place] 

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
--- OUTSIDE RECORDS SUMMARY | 2025-03-08 15:37 | XMS_ITS | Encounter Summary ---
Author Organization [facility] Address [address] [place] [address] Care Team Providers Care Drawing Machine Operator Name Role Phone Wilfrid Lopez MD Primary Care Provider [phone] Encounter Details Date Type Department Care Team (Late st Contact Info) Description 02/26/2006 Outpatient [facility] Ambulance [address] [place] [address] AMBULANCE, [facility] Injury, Other and Unspecified, Unspecified Site (Primary Dx) Social History Tobacco Use Types Packs/Day Years Used Date Smoking Tobacco: Never Assessed Comments Unknown Sex and Gender Information Value Date Recorded Sex Assigned at Not on file Legal Sex Female 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 HISTORY: Injury. FINDINGS: AP, lateral, swimmer's, and odontoid projections of the cervical spine appear normal. Straightened lordosis is considered positional. Prevertebral soft tissues normal. AP and lateral projections of the right femur appear normal. AP and lateral projections of the right knee show no evidence of fracture or dislocation. No evidence of joint effusion. AP oblique and lateral projections of the right wrist show no fracture. AP and lateral projections of the right forearm show no evidence of fracture. IMPRESSION: No acute findings. sdm Dictated By: Fahad Mendoza D.O. Electronically Signed By: Fahad Mendoza D.O. Date Signed: 02/27/06 SDM Procedure Note 07/18/2009 RIGHT FEMUR: LIMITED CERVICAL SPINE: RIGHT FOREARM: RIGHT KNEE: RIGHT WRIST: DATE: 02/26/2006. HISTORY: Injury. FINDINGS: AP, lateral, swimmer's, and odontoid projections of the cervical spineappear normal. Straightened lordosis is considered positional. Prevertebral soft tissues normal. AP and lateral projections of the right femur appear normal. AP and lateral projections of the right knee show no evidence of fractureor dislocation. No evidence of joint effusion. AP oblique and lateral projections of the right wrist show no fracture. AP and lateral projections of the right forearm show no evidence offracture. IMPRESSION: No acute findings. sdm Dictated By: Fahad Mendoza D.O. Electronically Signed By: Fahad Mendoza D.O. Date Signed: 02/27/06 SDM Tom Cuellar MD DIAGNOSTIC IMAGING ORDERA BLES Final Result documented in this encounter Visit Diagnoses Diagnosis Injury, other and unspecified, unspecified site- Primary documented in this encounter Care Teams Drawing Machine Operator Relationship Specialty Start Date End Date Wilfrid Lopez MD PCP - General Family Practice 07/15/12 documented as of this encounter
--- OUTSIDE RECORDS SUMMARY | 2025-03-08 15:37 | XMS_ITS | Encounter Summary ---
Author Organization [facility] Address [address] [place] [address] Care Team Providers Care Tubing Tester Name Role Phone Wilfrid Lopez MD Primary Care Provider [phone] Encounter Details Date Type Department Care Team (Late st Contact Info) Description 10/25/2007 Outpatient Historical [facility] Family Medicine [address] [address] Tom Zayas MD [address] [place] [address] Social History Tobacco Use Types Packs/Day Years Used Date Smoking Tobacco: Never Assessed Comments Unknown Sex and Gender Information Value Date Recorded Sex Assigned at Not on file Legal Sex Female 6:21 AM GANG SUPERVISOR Gender Identity Not on file Sexual Orientation Not on file documented as of this encounter Plan of Treatment Not on file documented as of this encounter Procedures Procedure Name Priority Date/Time Associated Diagnosis Comments (BROTH-ENRICHED) GROUP B STREP DETECTION Routine 11/01/2007 3:15 PM GANG SUPERVISOR documented in this encounter Results * STREPTOCOCCUS GROUP B CULTURE (11/01/2007 3:15 PM GANG SUPERVISOR) STREPTOCOCCUS GROUP B CULTURE SPECIMEN DESCRIPTION: VAGINAL/RECTAL SPECIAL REQUESTS: NO KNOWN PCN ALLERGY GESTATIONAL AGE: 36 WEEKS CULTURE: NO GROUP B BETA STREPTOCOCCUS ISOLATED REPORT STATUS: FINAL [id number] [facility] SUSCEPTIBILITY PERFORMED ON [facility] 11/01/2007 3:15 PM GANG SUPERVISOR 11/01/2007 9:29 PM GANG SUPERVISOR us Tom Zayas MD MICROBIOLOGY - GENERAL ORDERA BLES Final Result [facility]# [id number] [address] [place] [address] documented in this encounter Visit Diagnoses Not on filedocumented in this encounter Care Teams Tubing Tester Relationship Specialty Start Date End Date Wilfrid Lopez MD PCP - General Family Practice 07/15/12 documented as of this encounter
--- OUTSIDE RECORDS SUMMARY | 2025-03-08 15:37 | XMS_ITS | Encounter Summary ---
Author Organization [facility] Address [address] [place] [address] Care Team Providers Care Experimental Physicist Name Role Phone Wilfrid Lopez MD Primary Care Provider [phone] Encounter Details Date Type Department Care Team (Latest Contact Info) Description 06/12/2003 Outpatient Historical [facility] Tom Mccann MD NO ADDRESS ON FILE SUPERVIS NORMAL 1ST PREG (Primary Dx) Social History Tobacco Use Types Packs/Day Years Used Date Smoking Tobacco: Never Assessed Comments Unknown Sex and Gender Information Value Date Recorded Sex Assigned at Not on file Legal Sex Female 6:21 AM PASTRY SUPERVISOR Gender Identity Not on file Sexual Orientation Not on file documented as of this encounter Plan of Treatment Not on file documented as of this encounter Visit Diagnoses Diagnosis Supervision of normal first - Primary documented in this encounter Care Teams Experimental Physicist Relationship Specialty Start Date End Date Wilfrid Lopez MD PCP - General Family Practice 07/15/12 documented as of this encounter
--- OUTSIDE RECORDS SUMMARY | 2025-03-08 15:37 | XMS_ITS | Encounter Summary ---
Author Organization [facility] Address [address] [place] [address] Care Team Providers Care Derrick Boat Captain Name Role Phone Wilfrid Lopez MD Primary Care Provider [phone] Encounter Details Date Type Department Care Team (Late st Contact Info) Description 09/27/2007 Outpatient Historical [facility] Family Medicine [address] [address] Tom Zayas MD [address] [place] [address] Social History Tobacco Use Types Packs/Day Years Used Date Smoking Tobacco: Never Assessed Comments Unknown Sex and Gender Information Value Date Recorded Sex Assigned at Not on file Legal Sex Female 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 Gender Identity Not on file Sexual Orientation Not on file documented as of this encounter Plan of Treatment Not on file documented as of this encounter Procedures Procedure Name Priority Date/Time Associated Diagnosis Comments GLUCOSE TOLERANCE NON GESTATIONAL 3 HR Routine 10/04/2007 9:49 AM AUTOMOTIVE COLLISION REPAIR INSTRUCTOR documented in this encounter Results * GLUCOSE TOLERANCE 3HR (10/04/2007 9:49 AM AUTOMOTIVE COLLISION REPAIR INSTRUCTOR) GLUCOSE FASTING 84 70 - 100 MG/DL [facility] GLUCOSE, 1HR 159 MG/DL [facility] GLUCOSE, 2HR 102 MG/DL [facility] GLUCOSE, 3HR 61 MG/DL [facility] 10/04/2007 9:49 AM AUTOMOTIVE COLLISION REPAIR INSTRUCTOR 10/04/2007 9:50 AM AUTOMOTIVE COLLISION REPAIR INSTRUCTOR us Tom Zayas MD CHEMISTRY ORDERABLES Final Re sult [facility]# [id number] [address] [place] [address] documented in this encounter Visit Diagnoses Not on filedocumented in this encounter Care Teams Derrick Boat Captain Relationship Specialty Start Date End Date Wilfrid Lopez MD PCP - General Family Practice 07/15/12 documented as of this encounter
--- OUTSIDE RECORDS SUMMARY | 2025-03-08 15:37 | XMS_ITS | Encounter Summary ---
Author Organization [facility] Address [address] [place] [address] Care Team Providers Care Med Admin Name Role Phone Wilfrid Lopez MD Primary Care Provider [phone]- [phone] Encounter Details Date Type Department Care Team (Latest Contact Info) Description 07/09/2003 Outpatient Historical [facility] LABELING MACHINE OPERATOR [address] [place] [address] Tom Mccann MD NO ADDRESS ON FILE SUPERVIS NORMAL 1ST PREG (Primary Dx) Social History Tobacco Use Types Packs/Day Years Used Date Smoking Tobacco: Never Assessed Comments Unknown Sex and Gender Information Value Date Recorded Sex Assigned at Not on file Legal Sex Female 6:21 AM PETROLEUM INSPECTOR SUPERVISOR Gender Identity Not on file Sexual Orientation Not on file documented as of this encounter Plan of Treatment Not on file documented as of this encounter Visit Diagnoses Diagnosis Supervision of normal first - Primary documented in this encounter Care Teams Med Admin Relationship Specialty Start Date End Date Wilfrid Lopez MD PCP - General Family Practice 07/15/12 documented as of this encounter
--- OUTSIDE RECORDS SUMMARY | 2025-03-08 15:37 | XMS_ITS | Encounter Summary ---
Author Organization [facility] Address [address] [place] [address] Care Team Providers Care Rn School Name Role Phone Wilfrid Lopez MD Primary Care Provider [phone]- [phone] Encounter Details Date Type Department Care Team (Latest Contact Info) Description 07/25/2003 Outpatient Historical [facility] TAX LAWYER 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
--- OUTSIDE RECORDS SUMMARY | 2025-03-08 15:37 | XMS_ITS | Encounter Summary ---
Author Organization [facility] Address [address] [facility] Attn: Epic Prelude ADT [place] [address] Care Team Providers Care Shaper Machine Hand Name Role Phone Wilfrid Lopez MD Primary Care Provider [phone] Encounter Details Date Type Department Care Team (Late st Contact Info) Description 08/09/2003 Outpatient Historical Tom Mccann MD NO ADDRESS ON FILE ABDOMINAL PAIN UNSPEC SITE (Primary Dx) Social History Tobacco Use Types Packs/Day Years Used Date Smoking Tobacco: Never Assessed Comments Unknown Sex and Gender Information Value Date Recorded Sex Assigned at Not on file Legal Sex Female 6:21 AM TRACK REPAIR PERSON Gender Identity Not on file Sexual Orientation Not on file documented as of this encounter Plan of Treatment Not on file documented as of this encounter Visit Diagnoses Diagnosis Abdominal pain, unspecified site- Primary documented in this encounter Care Teams Shaper Machine Hand Relationship Specialty Start Date End Date Wilfrid Lopez MD PCP - General Family Practice 07/15/12 documented as of this encounter
--- OUTSIDE RECORDS SUMMARY | 2025-03-08 15:37 | XMS_ITS | Encounter Summary ---
Author Organization [facility] Address [address] [place] [address] Care Team Providers Care Belt Changer Name Role Phone Wilfrid Lopez MD Primary Care Provider [phone] Encounter Details Date Type Department Care Team (Latest Contact Info) Description 07/09/2003 Outpatient [facility] nat[facility] [address] [place] [address] Jaison Kelly II, MD [address] [place] [phone] FAMILY HERED DIS-ANTEPART (Primary Dx); PREG W OTHER POOR OBSTETRIC HISTORY; PREG STATE, INCIDENTAL Social History Tobacco Use Types Packs/Day Years Used Date Smoking Tobacco: Never Assessed Comments Unknown Sex and Gender Information Value Date Recorded Sex Assigned at Not on file Legal Sex Female 6: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 CROP 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
[2025-03-08 16:00] VITALS: BP 127/85; PULSE 75; RESP 18; TEMP 36.8; O2SAT 100; BMI 24.7
[2025-03-08 16:39] LABS: Hematocrit 38.0 % (36-47); Hemoglobin 12.50 g/dL (11.27-16.99); Mean Corpuscular HGB Conc 32.9 g/dL (30-55); Mean Corpuscular Hemoglobin 30.9 pg (27-33); Mean Corpuscular Volume 94.1 fl (85-98); Nucleated Red Blood Cells % 0 %; Platelet Count 323 10^3/cmm (157-399); Red Blood Count 4.04 10^6/uL (3.85-5.65); White Blood Count 4.44 10^3/uL (3.29-11.43)
[2025-03-08 17:04] LABS: Alanine Aminotransferase 8 U/L (0-33); Albumin Level 4.4 g/dL (3.5-5.2); Alkaline Phosphatase 90 U/L (35-105); Anion Gap 16.5 (5-19); Aspartate Amino Transferase 14 U/L (0-32); Blood Urea Nitrogen 5 mg/dL (6-20); Calcium 9.1 mg/dL (8.5-10.5); Carbon Dioxide 25 mmol/L (22-29); Chloride 105 mmol/L (98-107); Creatinine Clr Calc Pharmacy 140.8907; Globulin 2.7 g/dL (1.3-4.6); Glucose 106 mg/dL (65-115); Osmolality Calculated 292 mOsm/kg (285-295); Potassium 4.5 mmol/L (3.5-5.1); Sodium 142 mmol/L (136-145); Total Protein 7.1 g/dL (6.6-8.7)
[2025-03-08 17:05] LABS: HCG Qualitative Urine. Negative (Negative)
--- NOTE | 2025-03-08 17:40 | ED_ITS ---
HPI - General Adult 2 General: Chief complaint: General Medical Stated complaint: n,v,pain in right breast Time Seen by Provider: 03/08/25 17:12 History of Present Illness: 39-year-old female right breast pain for a week she noticed a lump and some bruising in her breast she had fallen previously. Concerned about bruising overlying she also has had a lot of general symptoms of generally not feeling well she was anemic a surgery Associated symptoms: Deny chest pain, dyspnea or rash Related Data Home Medications ?Medication ?Instructions ?Recorded ?Confirmed No Known Home Medications 11/18/2410/29 Allergies Allergy/AdvReac Type Severity Reaction Status Date / Time codeine Allergy Unknown unknown Verified 06/27/24 10:45 tramadol Allergy Unknown unknown Verified 06/27/24 10:45 magnesium Allergy unk Verified 06/27/24 10:45 Review of Systems 2 Const: Denies: fever(s) or chills Card: Denies: chest pain Resp: Denies: dyspnea GI: Denies: abdominal pain : Denies: dysuria, urinary frequency or urinary urgency Musc: Denies: neck pain or back pain Skin/Breast: Reports: breast pain and breast swelling (Bruising in the area of concern on the medial aspect of the left breast); Denies: rash PFSH ED 2 PFSH: Medical History History of uterine fibroid Family History Father Cancer kidney and lungs, blood Clotting disorder Chronic kidney disease (CKD) Heart disease Diabetes Grandfather Cancer blood, bones, and lungs Grandmother Clotting disorder Heart disease maternal and paternal Diabetes paternal Mother Heart disease Denies family history of Bleeding disorder Stroke Social History Smoking and tobacco/nicotine status: former use of tobacco/nicotine Quit status (tobacco/nicotine): not considering quitting Second hand smoke exposure: No Alcohol intake: current Alcohol intake frequency: holidays/special occasions only Substance/Drug Use: former Female Reproductive History: Spontaneous abortions: No Physical Exam 2 Const: GENERAL APPEARANCE: cooperative ORIENTATION/CONSCIOUSNESS: Yes awake, Yes oriented to person, Yes oriented to place and Yes oriented to time HENMT: COMMON NORMALS: normocephalic, atraumatic and hearing grossly normal bilaterally HEAD & SCALP: normocephalic and atraumatic Resp: COMMON NORMALS: normal respiratory effort, No retractions, No use of accessory muscles and clear to auscultation bilaterally AUSCULTATION: clear to auscultation bilaterally Cardio: COMMON NORMALS: regular rate, regular rhythm and No murmurs present (Cardio) RATE: regular rate RHYTHM: regular rhythm GI: COMMON NORMALS: Soft to palpation and No hepatosplenomegaly present A USCULTATION: Yes normoactive bowel sounds PALPATION: Yes Soft to palpation, No Tenderness to palpation present (GI), No Guarding due to palpation present (GI) and Yes No hepatosplenomegaly present Extremity: COMMON NORMALS: normal to inspection, capillary refill normal, no clubbing, cyanosis or edema, no calf tenderness and no pedal edema Neuro: SENSORIUM/ORIENTATION: Yes oriented to person, Yes oriented to place and Yes oriented to time Skin: COMMON NORMALS: no rashes or lesions noted GENERAL SKIN EXAM: no rashes or lesions noted Course 2 Vital Signs: Vital signs: Vital Signs Temperature 98.3 F 03/08/25 16:00 Pulse Rate 75 03/08/25 16:00 Respiratory Rate 18 03/08/25 16:00 Blood Pressure 127/85 03/08/25 16:00 Pulse Oximetry 100 03/08/25 16:00 Oxygen Delivery Me thod Room Air 03/08/25 16:00 MDM - General Adult Medical Decision Making Laboratory tests are unremarkable. Exam is negative as well shows no focal neurologic deficits noted. The there is no sign of infection on the area of the breast of concern. 4 o'clock position on the right breast. There is significant overlying hematoma. Suspect when she fell she may have developed a hematoma from this. Will set her up for an outpatient ultrasound may be best to get the patient done as an outpatient that way if there are extra views needed the radiologist can review and adjust the testing in real-time. Reviewed with the patient. Have her follow-up with results with her primary care doctor. Medical Records I reviewed the patient's medical records. Lab Data I reviewed the patient's lab results. 03/08/25 16:30 03/08/25 16:30 Laboratory Results WBC 4.44 10^3/uL (3.29-11.43) 03/08/25 16: RBC 4.04 10^6/uL (3.85-5.65) 03/08/25 16: Hgb 12.50 g/dL (11.27-16.99) 03/08/25 16:30 Hct 38.0 % (36-47) 03/08/25 16: MCV 94.1 fl (85-98) 03/08/25 16: MCH 30.9 pg (27-33) 03/08/25 16: MCHC 32.9 g/dL (30-55) 03/08/25 16: RDW 14.4 % (12.1-15.1) 03/08/25 16: Plt Count 323 10^3/cmm (157-399) 03/08/25 16: MPV 9.5 fL (7.4-10.4) 03/08/25 16:30 Neut % (Auto) 59.0 % 03/08/25 16: Lymph % (Auto) 33.1 % 03/08/25 16:30 Teton % (Auto) 5.6 % 03/08/25 16: Eos % (Auto) 1.4 % 03/08/25 16: Baso % (Auto) 0.7 % 03/08/25: Neut # (Auto) 2.62 10^3/uL (1.8-7.7) 03/08/25 16:30 Lymph # (Auto) 1.5 10^3/uL (0.8-4.8) 03/08/25 16: Teton # (Auto) 0.3 10^3/uL (0.2-0.9) 03/08/25 16: Eos # (Auto) 0.1 10^3/uL (0.0-0.8) 03/08/25 16: Baso # (Auto) 0.0 10^3/uL (0.0-0.1) 03/08/25 16: Nucleated RBC % (auto) 0 % 03/08/25 16: Nucleated RBCs # 0.0 /100WBC 03/08/25 16: Sodium 142 mmol/L (136-145) 03/08/25 16:30 Potassium 4.5 mmol/L (3.5-5.1) 03/08/25 16:30 Chloride 105 mmol/L (98-107) 03/08/25 16:30 Carbon Dioxide 25 mmol/L (22-29) 03/08/25 16:30 Anion Gap 16.5 (5-19) 03/08/25 16:30 BUN 5 mg/dL (6-20) L 03/08/25 16:30 Creatinine 0.6 mg/dL (0.5-0.9) 03/08/25 16:30 GFR Calculation 111.9 mL/min (90-130) 03/08/25 16:30 Glucose 106 mg/dL (65-115) 03/08/25 16:30 Calculated Osmolality 292 mOsm/kg (285-295) 03/08/25 16:30 Calcium 9.1 mg/dL (8.5-10.5) 03/08/25 16:30 Total Bilirubin 0.3 mg/dL (0.15-1.2) 03/08/25 16:30 AST 14 U/L (0-32) 03/08/25 16:30 ALT 8 U/L (0-33) 03/08/25 16:30 Alkaline Phosphatase 90 U/L (35-105) 03/08/25 16:30 Total Protein 7.1 g/dL (6.6-8.7) 03/08/25 16:30 Albumin 4.4 g/dL (3.5-5.2) 03/08/25 16:30 Globulin 2.7 g/dL (1.3-4.6) 03/08/25 16:30 HCG, Qual Negative (Negative) 03/08/25 16:30 No radiology studies performed this visit Discharge Plan Discharge Patient Disposition: Home Clinical Impression: Hematoma of breast Condition: Stable Prescriptions: No Action No Known Home Medications Discharge Orders: Discharge ED (Routine); Ordered 03/08/25 Ordered By: Eitan Cid Discharge Diet: Usual diet Discharge Activity: Resume usual activity Patient Instructions: Opioid Safety, Pain Management, Patient Portal & Jeny Instructions Activity Restrictions/Additional Instructions: Thank you for choosing [facility] for your healthcare needs today. It is very important that you follow up as instructed or that you return to the Emergency Department should you have concerns or if your condition changes or worsens in any way. You were seen in the emergency room with bruising on the right breast the palpable underlying lump there is no sign that this was an infection suspect based on the presentation at this is a hematoma (collection of blood in the tissue). Will set you up for an outpatient ultrasound of the right breast. Print Language: Vietnamese Coding Level of Care Code ED Confectionery Cooker for Omar Olmedo
[2025-03-08 18:11] VITALS: BP 112/77; PULSE 80; RESP 16; O2SAT 99
--- NOTE | 2025-03-08 18:20 | DCPLANNER ---
faxed outpatient order to scheduling
== END 2025-03-08 18:11 | disposition home or self-care (01) ==
PROVIDERS: Emergency Medicine; Emergency Provider Family Medicine
DX: S20.01XA Contusion of right breast, initial encounter (principal); Z87.891 Personal history of nicotine dependence; W19.XXXA Unspecified fall, initial encounter
CPT/HCPCS: 36415; 80053; 81025; 85025; 99283

== ENCOUNTER 2025-05-25 09:23 | Emergency (ER) | payer MEDICAID, SELFPAY ==
--- OUTSIDE RECORDS SUMMARY | 2018-07-11 08:45 | XMS_ITS | Continuity of Care Document ---
Author Organization [facility] Address [address] [id number] [address] Phone Care Team Providers Care Microwave Technician Name Role Phone Ezra Griffin NP Unavailable [...] Diagnoses Date Provider Providers Copied on Encounter [facility], [id number] [place], [place], [id number], [place] tel:[phone] [facility] No Information 8 Gaby Munguia. [address] [place], [address], [place]. tel:[phone] [facility], [id number] [place], [place], [address], [place] tel:[phone] [facility] No Information 8 Gaby Munguia. [address] [place], [address], [place]. tel:[phone] Referring Provider: Ezra Griffin, [address] [place], [address]. tel:[phone] [facility], [id number], [id number], [place] tel:[phone] [facility] Other specified counseling No Information OFFICE/OUTPAT IENT VISIT, [facility], [id number] [place], [place], [id number], [place] tel:[phone] [facility] ETOH (chief complaint) depression (chief complaint) Hepatitis C Gaby Munguia. [address] [place], [address], [place]. tel:[phone] Referring Provider: Ezra Griffin, [address] [place], [address]. tel:[phone] As per patient privacy policy some of the clinical information may not be visible. Family History Family Member Type Diagnosis Age At Onset No Information Payers Payer name Insurance type Covered republican ID Authoriza tinathalie(s) No Information Social History [...] Lab Order AFP, Ser um, Tumor Marker ([id number]), Sent on: Sent Future Order: Lab Order Vitamin D 25-OH ([id number]), Sent on: Sent Future Order: Lab Order Vit B12 ([id number]), Sent on: Sent Future Order: Lab Order PT/INR I n House ([id number]), Sent on: Sent Future Order: Lab Order Ferritin , Serum ([id number]), Sent on: Sent Future Order: Lab Order TSH-InHo use ([id number]), Sent on: Sent History Of Present Illness [...] She stated that she stopped drinking from 3132-5605. She stated that she has not had [...]
[2025-05-25 09:28] VITALS: BP 138/85; PULSE 126; RESP 17; TEMP 37.1; O2SAT 98; BMI 27.1
--- OUTSIDE RECORDS SUMMARY | 2025-05-25 09:30 | XMS_ITS | Encounter Summary ---
Author Organization [facility] Address [address] [place] [address] Care Team Providers Care Network Field Engineer Name Role Phone Wilfrid Lopez MD Primary Care Provider Encounter Details Date Type Department Care Team (Late st Contact Info) Description 08/05/2007 Outpatient Historical [facility] Medicine [address] [address] Tom Zayas MD [address] [place] [address] Social History Tobacco Use Types Packs/Day Years Used Date Smoking Tobacco: Never Assessed Comments Unknown Sex and Gender Information Value Date Recorded Sex Assigned at Not on file Legal 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
--- OUTSIDE RECORDS SUMMARY | 2025-05-25 09:30 | XMS_ITS | Encounter Summary ---
Author Organization [facility] Address [address] [place] [address] Care Team Providers Care Operations Technician Name Role Phone Wilfrid Lopez MD Primary Care Provider Encounter Details Date Type Department Care Team (Late st Contact Info) Description 05/30/2003 Outpatient [facility] Family [address] [address] Demetrius Dempsey MD [address] [phone] Social History Tobacco Use Types Packs/Day Years Used Date Smoking Tobacco: Never Assessed Comments Unknown Sex and Gender Information Value Date Recorded Sex Assigned at Not on file 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
--- OUTSIDE RECORDS SUMMARY | 2025-05-25 09:30 | XMS_ITS | Encounter Summary ---
Author Organization [facility] Address [address] [place] [address] Care Team Providers Care Health Plan Advisor Name Role Phone Wilfrid Lopez MD Primary Care Provider [phone]- [phone] Encounter Details Date Type Department Care Team (Latest Contact Info) Description 07/06/2007 Outpatient Historical [facility] Medicine [address] [phone] [facility] [address] [phone] Other and Unspecified Diseases of the Oral Soft Tissues (Primary Dx); Insomnia, Unspecified; Supervision of Other Normal Social History Tobacco Use Types Packs/Day Years Used Date Smoking Tobacco: Never Assessed Comments Unknown Sex and Gender Information Value Date Recorded Sex Assigned at Not on file Legal 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
--- OUTSIDE RECORDS SUMMARY | 2025-05-25 09:30 | XMS_ITS | Encounter Summary ---
Author Organization [facility] Address [address] [place] [address] Care Team Providers Care Museum Attendant Name Role Phone Wilfrid Lopez MD Primary Care Provider [phone]- [phone] Encounter Details Date Type Department Care Team (Latest Contact Info) Description 05/31/2007 Outpatient Historical [facility] Medicine [address] [phone] Tom Zayas MD [address] [place] [address] Supervision of Other Normal (Primary Dx) Social History Tobacco Use Types Packs/Day Years Used Date Smoking Tobacco: Never Assessed Comments Unknown Sex and Gender Information Value Date Recorded Sex Assigned at Not on file Legal 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
--- OUTSIDE RECORDS SUMMARY | 2025-05-25 09:30 | XMS_ITS | Encounter Summary ---
Author Organization [facility] Address [address] [place] [address] Care Team Providers Care Product Developer Name Role Phone Wilfrid Lopez MD Primary Care Provider [phone] Encounter Details Date Type Department Care Team (Latest Contact Info) Description 06/01/2003 Outpatient Historical [facility] Tom Mccann MD NO ADDRESS ON FILE SUPERVIS NORMAL 1ST PREG (Primary Dx) Social History Tobacco Use Types Packs/Day Years Used Date Smoking Tobacco: Never Assessed Comments Unknown Sex and Gender Information Value Date Recorded Sex Assigned at Not on file 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
--- OUTSIDE RECORDS SUMMARY | 2025-05-25 09:30 | XMS_ITS | Encounter Summary ---
Author Organization [facility] Address [address] [place] [address] Care Team Providers Care Multi Spindle Operator Name Role Phone Wilfrid Lopez MD Primary Care Provider Encounter Details Date Type Department Care Team (Latest Contact Info) Description 07/12/2007 Outpatient Historical 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
--- OUTSIDE RECORDS SUMMARY | 2025-05-25 09:30 | XMS_ITS | Encounter Summary ---
Author Organization [facility] Address [address] [place] [address] Care Team Providers Care Social Science Research Assistant Name Role Phone Wilfrid Lopez MD Primary Care Provider Encounter Details Date Type Department Care Team (Latest Contact Info) Description 05/23/2003 Outpatient Historical [facility] AMMONIUM NITRATE CRYSTALLIZER 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
--- OUTSIDE RECORDS SUMMARY | 2025-05-25 09:30 | XMS_ITS | Encounter Summary ---
Author Organization [facility] Address [address] [place] [address] Care Team Providers Care Delivery Aide Name Role Phone Wilfrid Lopez MD Primary Care Provider Encounter Details Date Type Department Care Team (Latest Contact Info) Description 05/29/2003 Outpatient Historical [facility] Family Medicine[address] [address] Demetrius Dempsey MD [address] [address] SUPERVIS OTHER NORMAL PREG (Primary Dx) Social History Tobacco Use Types Packs/Day Years Used Date Smoking Tobacco: Never Assessed Comments Unknown Sex and Gender Information Value Date Recorded Sex Assigned at Not on file Legal Sex Female 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
--- OUTSIDE RECORDS SUMMARY | 2025-05-25 09:30 | XMS_ITS | Encounter Summary ---
Author Organization [facility] Address [address] [place] [address] Care Team Providers Care Medical Office Specialist Name Role Phone Wilfrid Lopez MD Primary Care Provider [phone] Encounter Details Date Type Department Care Team (Late st Contact Info) Description 07/02/2006 Outpatient Historical [facility] Imaging Services [address] [place] [address] Kris Gutierrez MD [address] [place] [address] Chondromalacia of Patella (Primary Dx) Social History Tobacco Use Types Packs/Day Years Used Date Smoking Tobacco: Never Assessed Comments Unknown Sex and Gender Information Value Date Recorded Sex Assigned at Not on file Legal Sex Female 6:21 AM LOCOMOTIVE OBSERVER Gender Identity Not on file Sexual Orientation Not on file documented as of this encounter Plan of Treatment Not on file documented as of this encounter Procedures Procedure Name Priority Date/Time Associated Diagnosis Comments MRI KNEE WO CONTRAST RIGHT Routine 07/02/2006 9:03 AM LOCOMOTIVE OBSERVER documented in this encounter Results * MRI KNEE WO CONTRAST RIGHT (07/02/2006 9:03 AM LOCOMOTIVE OBSERVER) Anatomical Region Laterality Modality Lower Extremity Other 07/02/2006 9:03 AM LOCOMOTIVE OBSERVER Narrative 07/02/2006 9:03 AM LOCOMOTIVE OBSERVER MRI of the right knee was performed [...] By: Mary Edwards M.D. Date Signed: 07/02/06 [facility] Procedure Note 07/19/2009 MRI of the right [...] By: Mary Edwards M.D. Date Signed: 07/02/06 [facility] us Historical Provider MR ORDERABLES Final Result documented in this encounter Visit Diagnoses Diagnosis Chondromalacia of patella- Primary documented in this encounter Care Teams Medical Office Specialist Relationship Specialty Start Date End Date Wilfrid Lopez MD PCP - General Family Practice 07/15/12 documented as of this encounter
--- OUTSIDE RECORDS SUMMARY | 2025-05-25 09:30 | XMS_ITS | Encounter Summary ---
Author Organization [facility] Address [address] [place] [address] Care Team Providers Care Journeyman Glazier Name Role Phone Wilfrid Lopez MD Primary Care Provider [phone] Encounter Details Date Type Department Care Team (Late st Contact Info) Description 09/01/[address] [facility] Medicine [address] [address] Tom Zayas MD [address] [place] [address] Social History Tobacco Use Types Packs/Day Years Used Date Smoking Tobacco: Never Assessed Comments Unknown Sex and Gender Information Value Date Recorded Sex Assigned at Not on file Legal Sex Female 6:21 AM [employer] MEDIC Gender Identity Not on file Sexual Orientation Not on file documented as of this encounter Plan of Treatment Not on file documented as of this encounter Visit Diagnoses Not on filedocumented in this encounter Care Teams Journeyman Glazier Relationship Specialty Start Date End Date Wilfrid Lopez MD PCP - General Family Practice 07/15/12 documented as of this encounter
--- OUTSIDE RECORDS SUMMARY | 2025-05-25 09:30 | XMS_ITS | Encounter Summary ---
Author Organization [facility] Address [address] [place] [address] Care Team Providers Care Acid Polymerization Operator Name Role Phone Wilfrid Lopez MD Primary Care Provider [phone] Encounter Details Date Type Department Care Team (Latest Contact Info) Description 05/23/2003 Outpatient Historical [employer] 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
--- OUTSIDE RECORDS SUMMARY | 2025-05-25 09:30 | XMS_ITS | Encounter Summary ---
Author Organization [facility] Address [address] [place] [address] Care Team Providers Care Manager Beauty Name Role Phone iWlfrid Lopez MD Primary Care Provider Encounter Details Date Type Department Care Team (Late st Contact Info) Description 07/22/2006 Emergency [facility] Emergency Department [address] [place] [address] Nick Luna MD [address] [place], [place] [id number] Menstrual Disorder NEC (Primary Dx) Social History Tobacco Use Types Packs/Day Years Used Date Smoking Tobacco: Never Assessed Comments Unknown Sex and Gender Information Value Date Recorded Sex Assigned at Not on file Legal Sex Female 6:21 AM DOUBLE END TENON OPERATOR Gender Identity Not on file Sexual Orientation Not on file documented as of this encounter Plan of Treatment Not on file documented as of this encounter Procedures Procedure Name Priority Date/Time Associated Diagnosis Comments WET PREP GENITAL Routine 07/22/2006 8:31 PM DOUBLE END TENON OPERATOR CBC WITH DIFFERENTIAL Routine 07/22/2006 4:00 PM DOUBLE END TENON OPERATOR HCG QUANTITATIVE, BLOOD Routine 07/22/2006 4:00 PM DOUBLE END TENON OPERATOR BASIC METABOLIC PANEL Routine 07/22/2006 4:00 PM DOUBLE END TENON OPERATOR documented in this encounter Results * WET PREP GENITAL (07/22/2006 8:31 PM DOUBLE END TENON OPERATOR) WET PREP GENITAL None Observed None Observed INTERFACE SYSTEM WET YEAST None Observed None Observed INTERFACE SYSTEM WET CLUE CELLS None Observed None Observed INTERFACE SYSTEM 07/22/2006 8:31 PM DOUBLE END TENON OPERATOR us Nick Luna MD MICROBIOLOGY - GENERAL ORDERAB LES Final Result INTERFACE SYSTEM Refer to clinic/hospital department * HCG QUANTITATIVE, BLOOD (07/22/2006 4:00 PM DOUBLE END TENON OPERATOR) CHORIONIC GONADOTROPIN, TOTAL <2.0 0.0 - 10.0 mlU/ML INTERFACE SYSTEM Comment: As of 04 at 12:[address] [facility] has changed the methodology for ThCG, and with this change the reference range has changed from 0-5.0 mIU/ml to 0-10.0 mIU/ml. ----- ----- Total HCG levels between 10 mIU/mL and 25 mIU/mL may be indicative of early but need to be correlated with other clinical findings. HCG ranges during normal , as reported by the gate cutter, are summarized as follows: Gestational Age Expected hCG Values (mIU/ml) 0.2-1 Weeks 5 - 50 1-2 Weeks 50 - 500 2-3 Weeks 100 - 5,000 3-4 Weeks 1,000 - 50,000 5-6 Weeks 10,000 - 100,000 6-8 Weeks 15,000 - 200,000 2-3 Months 10,000 - 100,000 07/22/2006 4:00 PM DOUBLE END TENON OPERATOR Nick Luna MD CHEMISTRY ORDERABLES Final Res ult Performing Organization Address [facility] Phone Number INTERFACE SYSTEM Refer to clinic/hospital department * BASIC METABOLIC PANEL (07/22/2006 4:00 PM DOUBLE END TENON OPERATOR) GLUCOSE 75 70 - 110 mg/dL INTERFACE [...] 10.5 mg/dL INTERFACE SYSTEM 07/22/2006 4:00 PM DOUBLE END TENON OPERATOR Nick Luna MD CHEMISTRY ORDERABLES Final Res ult Performing Organization Address [facility] Phone Number INTERFACE SYSTEM Refer to clinic/hospital department * CBC WITH DIFFERENTIAL (07/22/2006 4:00 PM DOUBLE END TENON OPERATOR) WBC 6.6 4.5 - 12.5 K/ul INTERFACE [...] 0.2 K/ul INTERFACE SYSTEM 07/22/2006 4:00 PM DOUBLE END TENON OPERATOR us Nick Luna MD HEMATOLOGY ORDERABLES Final Re sult INTERFACE SYSTEM Refer to clinic/hospital department documented in this encounter Visit Diagnoses Diagnosis Other disorder of menstruation and other abnormal bleeding from female genital tract- Primary documented in this encounter Care Teams Manager Beauty Relationship Specialty Start Date End Date Wilfrid Lopez MD PCP - General Family Practice 07/15/12 documented as of this encounter
--- OUTSIDE RECORDS SUMMARY | 2025-05-25 09:30 | XMS_ITS | Encounter Summary ---
Author Organization [facility] Address [address] [place] [address] Care Team Providers Care Insecticide Supervisor Name Role Phone Wilfrid Lopez MD Primary Care Provider [phone] Encounter Details Date Type Department Care Team (Late st Contact Info) Description 04/18/2007 Emergency [facility] Emergency Department [address] [place] [address] WiTonny spence III G, DO NO ADDRESS ON FILE Spotting Complicating , Antepartum Condition or Complication (Primary Dx) Social History Tobacco Use Types Packs/Day Years Used Date Smoking Tobacco: Never Assessed Comments Unknown Sex and Gender Information Value Date Recorded Sex Assigned at Not on file Legal Sex Female 6:21 AM PLANTING MATERIAL CARRIER Gender Identity Not on file Sexual Orientation [...] - GENERAL ORDERABLES Edited Performing Organization Address [facility] Phone Number INTERFACE SYSTEM Refer to [...] CHEMISTRY ORDERABLES Edite d Performing Organization Address [facility] Phone Number INTERFACE SYSTEM Refer to clinic/hospital department * (ABNORMAL) BETA HCG QUANTITATIVE, BLOOD (04/18/2007 10:05 PM CDT) CHORIONIC GONADOTROPIN, TOTAL 80286.0(H) 0.0 - 10.0 mlU/ML INTERFACE SYSTEM Comment: Total HCG levels between 10 mIU/mL and 25 mIU/mL may be indicative of early but need to be correlated with other clinical findings. HCG ranges during normal , as reported by the zone maintenance technician, are summarized as follows: Gestational Age Expected [...] Primary documented in this encounter Care Teams Insecticide Supervisor Relationship Specialty Start Date End Date Wilfrid Lopez MD PCP - General Family Practice 07/15/12 documented as of this encounter
--- OUTSIDE RECORDS SUMMARY | 2025-05-25 09:30 | XMS_ITS | Encounter Summary ---
Author Organization [facility] Address [address] [place] [address] Care Team Providers Care General Adjuster Name Role Phone Tito Emmanuel Primary Care Provider [phone] Encounter Details Date Type Department Care Team (Latest Contact Info) Description 04/25/2025 Results Follow-Up [facility] Medicine [place] [address] [place] [address] Michelle Whelan, [facility] [address] [address] COMPREHENSIVE METABOLIC PANEL Social History Tobacco Use Types Packs/Day Years Used Date Smoking Tobacco: Former Cigarettes Smokeless Tobacco: Never Alcohol Use Standard Drinks/Week Comments Not Currently 8.3 (1 standard drin k = 0.6 oz pure alcohol) Hot Toddy today, former regular user Feeling Safe Answer Date Recorded Within the [...] 04/02/2022 How often do you attend chur ch or gnosticist services? More than 4 times per year 04/02/2022 Do you belong to any clubs o r organizations such as caodaism groups, unions, fraternal or athletic groups, or [...] mortgage or rent on time? No 04/02/2022 In the past 12 months, how m any times have you moved where you were living? 1 04/02/2022 At any time in the past 12 m [facility], were you homeless or living in a fdc (including now)? No 04/02/2022 Feeling Safe Answer Date Recorded Are you in a relationship wi th someone who hurts you emotionally and/or physically? No 04/22/2025 Education Answer Date Recorded What is the highest level of school you have completed or the highest degree you have received? Some college, no degree 04/02/2022 Comments No Sex and Gender Information Value Date Recorded Sex Assigned at Not on file Legal Sex Female 1:14 PM ARTIFICIAL FOLIAGE ARRANGER Gender Identity Not on file Sexual Orientation Not on file documented as of this encounter Plan of Treatment Not on file documented as of this encounter Visit Diagnoses Not on filedocumented in this encounter Care Teams General Adjuster Relationship Specialty Start Date End Date Tito Emmanuel DO [address] [place] [address] PCP - General Family Practice 06/26/21 documented as of this encounter
--- OUTSIDE RECORDS SUMMARY | 2025-05-25 09:30 | XMS_ITS | Encounter Summary ---
Author Organization [facility] Address [address] [place] [address] Care Team Providers Care Hot Box Checker Name Role Phone Wilfrid Lopez MD Primary Care Provider [phone] Encounter Details Date Type Department Care Team (Latest Contact Info) Description 05/31/2007 Outpatient Historical [facility] Medicine [address] [address] Tom Zayas MD [address] [place] [address] Supervision of Other Normal (Primary Dx) Social History Tobacco Use Types Packs/Day Years Used Date Smoking Tobacco: Never Assessed Comments Unknown Sex and Gender Information Value Date Recorded Sex Assigned at Not on file Legal Sex Female 6:21 AM 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
--- OUTSIDE RECORDS SUMMARY | 2025-05-25 09:30 | XMS_ITS | Encounter Summary ---
Author Organization [facility] Address [address] [place] [address] Care Team Providers Care Fellmongery Worker Name Role Phone Wilfrid Lopez MD Primary Care Provider [phone] Encounter Details Date Type Department Care Team (Latest Contact Info) Description 06/01/2003 Outpatient Historical [facility] Tom Mccann MD NO ADDRESS ON FILE ADMINISTRTVE ENCOUNT NOS (Primary Dx) Social History Tobacco Use Types Packs/Day Years Used Date Smoking Tobacco: Never Assessed Comments Unknown Sex and Gender Information Value Date Recorded Sex Assigned at Not on file Legal Sex Female 6:21 AM TOOL SHAPER SETUP OPERATOR Gender Identity Not on file Sexual Orientation Not on file documented as of this encounter Plan of Treatment Not on file documented as of this encounter Visit Diagnoses Diagnosis Encounters for unspecified administrative purpose- Primary documented in this encounter Care Teams Fellmongery Worker Relationship Specialty Start Date End Date Wilfrid Lopez MD PCP - General Family Practice 07/15/12 documented as of this encounter
--- OUTSIDE RECORDS SUMMARY | 2025-05-25 09:30 | XMS_ITS | Encounter Summary ---
Author Organization [facility] Address [address] [place] [address] Care Team Providers Care Quality Improvement Specialist Name Role Phone Wilfrid Lopez MD Primary Care Provider [phone] Encounter Details Date Type Department Care Team (Latest Contact Info) Description 07/22/2006 Outpatient Historical [facility] [address] [place] [address] AMBULANCE, [facility] Other Specified Noninflammatory Disorder of Vagina (Primary Dx) Social History Tobacco Use Types Packs/Day Years Used Date Smoking Tobacco: Never Assessed Comments Unknown Sex and Gender Information Value Date Recorded Sex Assigned at Not on file Legal Sex Female 6:21 AM FRUIT RANCHER Gender Identity Not on file Sexual Orientation Not on file documented as of this encounter Plan of Treatment Not on file documented as of this encounter Procedures Procedure Name Priority Date/Time Associated Diagnosis Comments US PELVIS COMPLETE Routine 07/22/2006 5: 01 PM FRUIT RANCHER documented in this encounter Results * US PELVIS COMPLETE (07/22/2006 5:01 PM FRUIT RANCHER) Anatomical Region Laterality Modality Pelvis Other 07/22/2006 5:01 PM FRUIT RANCHER Narrative 07/22/2006 5:01 PM FRUIT RANCHER ULTRASOUND OF PELVIS HISTORY: Pelvic pain, vaginal [...] Primary documented in this encounter Care Teams Quality Improvement Specialist Relationship Specialty Start Date End Date Wilfrid Lopez MD PCP - General Family Practice 07/15/12 documented as of this encounter
--- OUTSIDE RECORDS SUMMARY | 2025-05-25 09:30 | XMS_ITS | Encounter Summary ---
Author Organization [facility] Address [address] [place] [address] Care Team Providers Care Drama Director Name Role Phone Wilfrid Lopez MD Primary Care Provider [phone] Encounter Details Date Type Department Care Team (Latest Contact Info) Description 04/12/2007 Outpatient Historical [facility] Medicine [address] [address] Tom Zayas MD [address] [place] [address] Supervision of Other Normal (Primary Dx) Social History Tobacco Use Types Packs/Day Years Used Date Smoking Tobacco: Never Assessed Comments Unknown Sex and Gender Information Value Date Recorded Sex Assigned at Not on file Legal Sex Female 6:21 AM CABLE DISPATCHER Gender Identity Not on file Sexual Orientation Not on file documented as of this encounter Plan of Treatment Not on file documented as of this encounter Visit Diagnoses Diagnosis Supervision of other normal - Primary documented in this encounter Care Teams Drama Director Relationship Specialty Start Date End Date Wilfrid Lopez MD PCP - General Family Practice 07/15/12 documented as of this encounter
--- OUTSIDE RECORDS SUMMARY | 2025-05-25 09:30 | XMS_ITS | Encounter Summary ---
Author Organization [facility] Address [address] [place] [address] Care Team Providers Care Reeling Machine Setup Operator Name Role Phone Wilfrid Lopez MD Primary Care Provider [phone] Encounter Details Date Type Department Care Team (Late st Contact Info) Description 09/06/2007 Outpatient Historical [facility] Medicine [address] [address] Tom Zayas MD [address] [place] [address] Social History Tobacco Use Types Packs/Day Years Used Date Smoking Tobacco: Never Assessed Comments Unknown Sex and Gender Information Value Date Recorded Sex Assigned at Not on file Legal Sex Female 6:21 AM FLOATING LABOR GANG SUPERVISOR Gender Identity Not on file Sexual Orientation Not on file documented as of this encounter Plan of Treatment Not on file documented as of this encounter Visit Diagnoses Not on filedocumented in this encounter Care Teams Reeling Machine Setup Operator Relationship Specialty Start Date End Date Wilfrid Lopez MD PCP - General Family Practice 07/15/12 documented as of this encounter
--- OUTSIDE RECORDS SUMMARY | 2025-05-25 09:30 | XMS_ITS | Encounter Summary ---
Author Organization [facility] Address [address] [place] [address] Care Team Providers Care Armor Reconnaissance Vehicle Crewman Name Role Phone Wilfrid Lopez MD Primary Care Provider Encounter Details Date Type Department Care Team (Latest Contact Info) Description 04/18/2003 Outpatient Historical [facility] Medicine- [address] [address] Demetrius Dempsey MD [address] [address] SUPERVIS OTHER NORMAL PREG (Primary Dx); PREG W OTHER POOR OBSTETRIC HISTORY Social History Tobacco Use Types Packs/Day Years Used Date Smoking Tobacco: Never Assessed Comments Unknown Sex and Gender Information Value Date Recorded Sex Assigned at Not on file Legal Sex Female 6:21 AM INSTRUMENTATION ENGINEER Gender Identity Not on file Sexual Orientation Not on file documented as of this encounter Plan of Treatment Not on file documented as of this encounter Visit Diagnoses Diagnosis Supervision of other normal - Primary with other poor obstetric history(V23.49) with other poor obstetric history documented in this encounter Care Teams Armor Reconnaissance Vehicle Crewman Relationship Specialty Start Date End Date Wilfrid Lopez MD PCP - General Family Practice 07/15/12 documented as of this encounter
--- NOTE | 2025-05-25 09:31 | ECG_ITS ---
Drop Development Test Date: 2025-05-25 Pat Name: Susan Olivarez Department: Room: Gender: Female Remote Control Mirror Installer: : 1985 Requested By: Savana Zuniga Order Number: [id number] Alexandra MD: ALLISON ZACARIAS Measurements Intervals [place] Rate: 126 P: 56 NJ: 128 QRS: 28 QRSD: 76 T: 49 QT: 322 QTc: 466 Interpretive Statements SINUS TACHYCARDIA MODERATE ST DEPRESSION [0.05+ mV ST DEPRESSION] Compared to ECG 11/18/2024 13:55:30 ST (T wave) deviation now present Sinus rhythm no longer present Electronically Signed On 05-26-2025 21:35:26 CDT by ALLISON ZACARIAS [email or web address]
--- OUTSIDE RECORDS SUMMARY | 2025-05-25 09:31 | XMS_ITS | Encounter Summary ---
Author Organization [facility] Address [address] [facility] Attn: Epic Prelude ADT [place] [address] Care Team Providers Care Tip Mender Name Role Phone Wilfrid Lopez MD Primary Care Provider [phone] Encounter Details Date Type Department Care Team (Late st Contact Info) Description 10/21/2003 Outpatient Historical Tom Mccann MD NO ADDRESS ON FILE THRT [facility]-ANTEPART (Primary Dx) Social History Tobacco Use Types Packs/Day Years Used Date Smoking Tobacco: Never Assessed Comments Unknown Sex and Gender Information Value Date Recorded Sex Assigned at Not on file Legal Sex Female 6:21 AM GLASS CHECKER Gender Identity Not on file Sexual Orientation Not on file documented as of this encounter Plan of Treatment Not on file documented as of this encounter Visit Diagnoses Diagnosis Threatened premature labor, antepartum(644.03)- Primary Threatened premature labor, antepartum documented in this encounter Care Teams Tip Mender Relationship Specialty Start Date End Date Wilfrid Lopez MD PCP - General Family Practice 07/15/12 documented as of this encounter
--- OUTSIDE RECORDS SUMMARY | 2025-05-25 09:31 | XMS_ITS | Encounter Summary ---
Author Organization [facility] Address [address] [place] [address] Care Team Providers Care Zipper Setter Name Role Phone Wilfrid Lopez MD Primary Care Provider [phone] Encounter Details Date Type Department Care Team (Latest Contact Info) Description 08/21/2003 Outpatient Historical [facility] Tom Mccann MD NO ADDRESS ON FILE SUPERVIS NORMAL 1ST PREG (Primary Dx) Social History Tobacco Use Types Packs/Day Years Used Date Smoking Tobacco: Never Assessed Comments Unknown Sex and Gender Information Value Date Recorded Sex Assigned at Not on file Legal Sex Female 6:21 AM HEALTH INFORMATICS SPECIALIST Gender Identity Not on file Sexual Orientation Not on file documented as of this encounter Plan of Treatment Not on file documented as of this encounter Visit Diagnoses Diagnosis Supervision of normal first - Primary documented in this encounter Care Teams Zipper Setter Relationship Specialty Start Date End Date Wilfrid Lopez MD PCP - General Family Practice 07/15/12 documented as of this encounter
--- OUTSIDE RECORDS SUMMARY | 2025-05-25 09:31 | XMS_ITS | Encounter Summary ---
Author Organization [employer] Address [address] [place] [address] Care Team Providers Care Locomotive Operator Name Role Phone Tito Emmanuel DO Primary Care Provider [phone] Encounter Details Date Type Department Care Team (Late st Contact Info) Description 05/22/2025 External Device Data STL ABSTRACTION Provider, Abstract [...] often do you attend chur ch or tenriism services? More than 4 times per year 04/02/2022 Do you belong to any clubs o r organizations such as christianity groups, unions, fraternal or athletic groups, or [...] any time in the past 12 m [facility], were you homeless or living in a intermediate (including now)? 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
--- OUTSIDE RECORDS SUMMARY | 2025-05-25 09:31 | XMS_ITS | Encounter Summary ---
Author Organization [facility] Address [address] [place] [address] Care Team Providers Care Health Counselor Name Role Phone Wilfrid Lopez MD Primary Care Provider [phone] Encounter Details Date Type Department Care Team (Latest Contact Info) Description 06/25/2005 Outpatient Historical [facility] Medicine [address] [address] Tom Zayas MD [address] [place] [address] SUPERVIS OTHER NORMAL PREG (Primary Dx) Social History Tobacco Use Types Packs/Day Years Used Date Smoking Tobacco: Never Assessed Comments Unknown Sex and Gender Information Value Date Recorded Sex Assigned at Not on file Legal Sex Female 6:21 AM PHOTOVOLTAIC POWER SYSTEMS ENGINEER Gender Identity Not on file Sexual Orientation Not on file documented as of this encounter Plan of Treatment Not on file documented as of this encounter Visit Diagnoses Diagnosis Supervision of other normal - Primary documented in this encounter Care Teams Health Counselor Relationship Specialty Start Date End Date Wilfrid Lopez MD PCP - General Family Practice 07/15/12 documented as of this encounter
--- OUTSIDE RECORDS SUMMARY | 2025-05-25 09:31 | XMS_ITS | Encounter Summary ---
Author Organization [facility] Address [address] [place] [address] Care Team Providers Care Cost Manager Name Role Phone Wilfrid Lopez MD Primary Care Provider [phone] Encounter Details Date Type Department Care Team (Latest Contact Info) Description 10/19/2003 Outpatient Historical [facility] SHERIFF OFFICER [address] [place] [address] Tom Mccann MD NO ADDRESS ON FILE SUPERVIS OTHER NORMAL PREG (Primary Dx) Social History Tobacco Use Types Packs/Day Years Used Date Smoking Tobacco: Never Assessed Comments Unknown Sex and Gender Information Value Date Recorded Sex Assigned at Not on file Legal Sex Female 6:21 AM SEAT COVER MAKER Gender Identity Not on file Sexual Orientation Not on file documented as of this encounter Plan of Treatment Not on file documented as of this encounter Visit Diagnoses Diagnosis Supervision of other normal - Primary documented in this encounter Care Teams Cost Manager Relationship Specialty Start Date End Date Wilfrid Lopez MD PCP - General Family Practice 07/15/12 documented as of this encounter
--- OUTSIDE RECORDS SUMMARY | 2025-05-25 09:31 | XMS_ITS | Encounter Summary ---
Author Organization [facility] Address [address] [place] [address] Care Team Providers Care Miner Name Role Phone Wilfrid Lopez MD Primary Care Provider [phone] Encounter Details Date Type Department Care Team (Latest Contact Info) Description 11/06/2003 Outpatient Historical [facility] LICENSED LOAN OFFICER [address] [place] [address] Tom Mccann MD NO ADDRESS ON FILE SUPERVIS NORMAL 1ST PREG (Primary Dx) Social History Tobacco Use Types Packs/Day Years Used Date Smoking Tobacco: Never Assessed Comments Unknown Sex and Gender Information Value Date Recorded Sex Assigned at Not on file Legal Sex Female 6:21 AM COMPLIANCE LEAD Gender Identity Not on file Sexual Orientation Not on file documented as of this encounter Plan of Treatment Not on file documented as of this encounter Visit Diagnoses Diagnosis Supervision of normal first - Primary documented in this encounter Care Teams Miner Relationship Specialty Start Date End Date Wilfrid Lopez MD PCP - General Family Practice 07/15/12 documented as of this encounter
--- OUTSIDE RECORDS SUMMARY | 2025-05-25 09:31 | XMS_ITS | Encounter Summary ---
Author Organization [facility] Address [address] [facility] Attn: Epic Prelude ADT [place] [address] Care Team Providers Care Administrative Judge Name Role Phone Wilfrid Lopez MD Primary Care Provider [phone] Encounter Details Date Type Department Care Team (Late st Contact Info) Description 08/09/2003 Outpatient Historical Tom Mccann MD NO ADDRESS ON FILE ABDOMINAL PAIN UNSPEC SITE (Primary Dx) Social History Tobacco Use Types Packs/Day Years Used Date Smoking Tobacco: Never Assessed Comments Unknown Sex and Gender Information Value Date Recorded Sex Assigned at Not on file Legal Sex Female 6:21 AM JALOUSIES INSTALLER Gender Identity Not on file Sexual Orientation Not on file documented as of this encounter Plan of Treatment Not on file documented as of this encounter Visit Diagnoses Diagnosis Abdominal pain, unspecified site- Primary documented in this encounter Care Teams Administrative Judge Relationship Specialty Start Date End Date Wilfrid Lopez MD PCP - General Family Practice 07/15/12 documented as of this encounter
--- OUTSIDE RECORDS SUMMARY | 2025-05-25 09:31 | XMS_ITS | Encounter Summary ---
Author Organization [facility] Address [address] [facility] Attn: Epic Prelude ADT [place] [address] Care Team Providers Care Landing Scaler Name Role Phone Wilfrid Lopez MD Primary Care Provider [phone] Encounter Details Date Type Department Care Team (Late st Contact Info) Description 09/11/2003 Outpatient Historical Tom Mccann MD NO ADDRESS ON FILE THRT MADHAVI LABOR-ANTEPART (Primary Dx) Social History Tobacco Use Types Packs/Day Years Used Date Smoking Tobacco: Never Assessed Comments Unknown Sex and Gender Information Value Date Recorded Sex Assigned at Not on file Legal Sex Female 6:21 AM STONE RUBBER Gender Identity Not on file Sexual Orientation Not on file documented as of this encounter Plan of Treatment Not on file documented as of this encounter Visit Diagnoses Diagnosis Threatened premature labor, antepartum(644.03)- Primary Threatened premature labor, antepartum documented in this encounter Care Teams Landing Scaler Relationship Specialty Start Date End Date Wilfrid Lopez MD PCP - General Family Practice 07/15/12 documented as of this encounter
--- OUTSIDE RECORDS SUMMARY | 2025-05-25 09:31 | XMS_ITS | Encounter Summary ---
Author Organization [facility] Address [address] [place] [address] Care Team Providers Care Model Set Artist Name Role Phone Wilfrid Lopez MD Primary Care Provider [phone] Encounter Details Date Type Department Care Team (Latest Contact Info) Description 10/07/2005 Outpatient Historical [facility] [address] [place] [address] AMBULANCE, [facility] THREAT LABOR NEC-ANTEPAR (Primary Dx) Social History Tobacco Use Types Packs/Day Years Used Date Smoking Tobacco: Never Assessed Comments Unknown Sex and Gender Information Value Date Recorded Sex Assigned at Not on file Legal Sex Female 6:21 AM HOME HEALTH CARE PHYSICIAN Gender Identity Not on file Sexual Orientation Not on file documented as of this encounter Plan of Treatment Not on file documented as of this encounter Visit Diagnoses Diagnosis Other threatened labor, antepartum- Primary documented in this encounter Care Teams Model Set Artist Relationship Specialty Start Date End Date Wilfrid Lopez MD PCP - General Family Practice 07/15/12 documented as of this encounter
--- OUTSIDE RECORDS SUMMARY | 2025-05-25 09:31 | XMS_ITS | Encounter Summary ---
Author Organization Address [address] [facility] Attn: Epic Prelude ADT [place] [address] Care Team Providers Care Chemical Process Project Engineer Name Role Phone Wilfrid Lopez MD Primary Care Provider [phone] Encounter Details Date Type Department Care Team (Late st Contact Info) Description 10/20/2003 Outpatient Historical Tom Mccann MD NO ADDRESS ON FILE THRT MADHAVI LABOR-ANTEPART (Primary Dx) Social History Tobacco Use Types Packs/Day Years Used Date Smoking Tobacco: Never Assessed Comments Unknown Sex and Gender Information Value Date Recorded Sex Assigned at Not on file Legal Sex Female 6:21 AM FOOD AND BEVERAGE CONTROLLER Gender Identity Not on file Sexual Orientation Not on file documented as of this encounter Plan of Treatment Not on file documented as of this encounter Visit Diagnoses Diagnosis Threatened premature labor, antepartum(644.03)- Primary Threatened premature labor, antepartum documented in this encounter Care Teams Chemical Process Project Engineer Relationship Specialty Start Date End Date Wilfrid Lopez MD PCP - General Family Practice 07/15/12 documented as of this encounter
--- OUTSIDE RECORDS SUMMARY | 2025-05-25 09:31 | XMS_ITS | Encounter Summary ---
Author Organization [facility] Address [address] [facility] Attn: Epic Prelude ADT [place] [address] Care Team Providers Care Pigment Presser Name Role Phone Wilfrid Lopez MD Primary Care Provider [phone] Encounter Details Date Type Department Care Team (Late st Contact Info) Description 08/20/2003 Outpatient Historical Tom Mccann MD NO ADDRESS ON FILE THRT MADHAVI LABOR-ANTEPART (Primary Dx) Social History Tobacco Use Types Packs/Day Years Used Date Smoking Tobacco: Never Assessed Comments Unknown Sex and Gender Information Value Date Recorded Sex Assigned at Not on file Legal Sex Female 6:21 AM ASSEMBLY INSPECTOR Gender Identity Not on file Sexual Orientation Not on file documented as of this encounter Plan of Treatment Not on file documented as of this encounter Visit Diagnoses Diagnosis Threatened premature labor, antepartum(644.03)- Primary Threatened premature labor, antepartum documented in this encounter Care Teams Pigment Presser Relationship Specialty Start Date End Date Wilfrid Lopez MD PCP - General Family Practice 07/15/12 documented as of this encounter
--- OUTSIDE RECORDS SUMMARY | 2025-05-25 09:31 | XMS_ITS | Encounter Summary ---
Author Organization [facility] Address [address] [place] [address] Care Team Providers Care Railroad Track Inspector Name Role Phone Wilfrid Lopez MD Primary Care Provider [phone] Encounter Details Date Type Department Care Team (Late st Contact Info) Description 04/25/2008 Emergency [facility] Emergency Department [address] [place] [address] Ed, Physician NO ADDRESS ON FILE Patrick Howard MD NO ADDRESS ON FILE Social History Tobacco Use Types Packs/Day Years Used Date Smoking Tobacco: Never Assessed Comments Unknown Sex and Gender Information Value Date Recorded Sex Assigned at Not on file Legal Sex Female 6:21 AM COMMERCIAL INSTRUCTOR SUPERVISOR Gender Identity Not on file Sexual Orientation Not on file documented as of this encounter Plan of Treatment Not on file documented as of this encounter Visit Diagnoses Not on filedocumented in this encounter Care Teams Railroad Track Inspector Relationship Specialty Start Date End Date Wilfrid Lopez MD PCP - General Family Practice 07/15/12 documented as of this encounter
--- OUTSIDE RECORDS SUMMARY | 2025-05-25 09:31 | XMS_ITS | Encounter Summary ---
Author Organization [facility] Address [address] [place] [address] Care Team Providers Care Congressional Aide Name Role Phone Wilfrid Lopez MD Primary Care Provider [phone] Encounter Details Date Type Department Care Team (Latest Contact Info) Description 08/27/2003 Outpatient Historical [facility] Tom Mccann MD NO ADDRESS ON FILE SUPERVIS NORMAL 1ST PREG (Primary Dx) Social History Tobacco Use Types Packs/Day Years Used Date Smoking Tobacco: Never Assessed Comments Unknown Sex and Gender Information Value Date Recorded Sex Assigned at Not on file Legal Sex Female 6:21 AM MANAGER LEGAL Gender Identity Not on file Sexual Orientation Not on file documented as of this encounter Plan of Treatment Not on file documented as of this encounter Visit Diagnoses Diagnosis Supervision of normal first - Primary documented in this encounter Care Teams Congressional Aide Relationship Specialty Start Date End Date Wilfrid Lopez MD PCP - General Family Practice 07/15/12 documented as of this encounter
--- OUTSIDE RECORDS SUMMARY | 2025-05-25 09:31 | XMS_ITS | Encounter Summary ---
Author Organization [facility] Address [address] [place] [address] Care Team Providers Care Anesthesiology Fellow Name Role Phone Wilfrid Lopez MD Primary Care Provider + [phone] Encounter Details Date Type Department Care Team (Late st Contact Info) Description 03/09/2006 Emergency [facility] Emergency Department [address] [place] [address] Miguel Lomax MD NO ADDRESS ON FILE Contusion of Knee (Primary Dx) Social History Tobacco Use Types Packs/Day Years Used Date Smoking Tobacco: Never Assessed Comments Unknown Sex and Gender Information Value Date Recorded Sex Assigned at Not on file Legal Sex Female 6:21 AM REJECT OPENER AND FILLER Gender Identity Not on file Sexual [...] Anatomical Region Laterality Modality Chest Other 03/09/2006 2:4 5 PM CDT Narrative 03/09/2006 2:45 PM CDT [...] Primary documented in this encounter Care Teams Anesthesiology Fellow Relationship Specialty Start Date End Date Wilfrid Lopez MD PCP - General Family Practice 07/15/12 documented as of this encounter
--- OUTSIDE RECORDS SUMMARY | 2025-05-25 09:31 | XMS_ITS | Encounter Summary ---
Author Organization [facility] Address [address] [place] [address] Care Team Providers Care Heel Room Supervisor Name Role Phone Wilfrid Lopez MD Primary Care Provider Encounter Details Date Type Department Care Team (Late st Contact Info) Description 03/24/2006 Outpatient Historical [facility] 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
--- OUTSIDE RECORDS SUMMARY | 2025-05-25 09:31 | XMS_ITS | Encounter Summary ---
Author Organization [facility] Address [address] [place] [address] Care Team Providers Care Fiction And Nonfiction Writer Prose Name Role Phone Wilfrid Lopez MD Primary Care Provider [phone] Encounter Details Date Type Department Care Team [...] file Legal Sex Female 6:21 AM AUTO BODY SERVICE MECHANIC Gender Identity Not on file Sexual Orientation Not on file documented as of this encounter Plan of Treatment Not on file documented as of this encounter Visit Diagnoses Diagnosis Abnormality in heart rate/rhythm, delivered, with or without mention of antepartum condition- Primary documented in this encounter Care Teams Fiction And Nonfiction Writer Prose Relationship Specialty Start Date End Date Wilfrid Lopez MD PCP - General Family Practice 07/15/12 documented as of this encounter
--- OUTSIDE RECORDS SUMMARY | 2025-05-25 09:31 | XMS_ITS | Encounter Summary ---
Author Organization [facility] Address [address] [place] [address] Care Team Providers Care City Secretary Name Role Phone Wilfrid Lopez MD Primary Care Provider [phone] Encounter Details Date Type Department Care Team (Latest Contact Info) Description 06/01/2003 Outpatient Historical [facility] EARLY EDUCATION TEACHER [address] [place] [address] Tom Mccann MD NO ADDRESS ON FILE SUPERVIS NORMAL 1ST PREG (Primary Dx) Social History Tobacco Use Types Packs/Day Years Used Date Smoking Tobacco: Never Assessed Comments Unknown Sex and Gender Information Value Date Recorded Sex Assigned at Not on file Legal Sex Female 6:21 AM JOURNALISM PROFESSOR Gender Identity Not on file Sexual Orientation Not on file documented as of this encounter Plan of Treatment Not on file documented as of this encounter Visit Diagnoses Diagnosis Supervision of normal first - Primary documented in this encounter Care Teams City Secretary Relationship Specialty Start Date End Date Wilfrid Lopez MD PCP - General Family Practice 07/15/12 documented as of this encounter
--- OUTSIDE RECORDS SUMMARY | 2025-05-25 09:31 | XMS_ITS | Encounter Summary ---
Author Organization [facility] Address [address] [place] [address] Care Team Providers Care Master At Arms Name Role Phone Wilfrid Lopez MD Primary Care Provider [phone] Encounter Details Date Type Department Care Team (Latest Contact Info) Description 08/06/2003 Outpatient Historical [facility] [address] [place] [address] [place] [address] [facility] [address] [place] [address] MIGRAINE NOS W/O MENTN INTRACTABLE (Primary Dx) Social History Tobacco Use Types Packs/Day Years Used Date Smoking Tobacco: Never Assessed Comments Unknown Sex and Gender Information Value Date Recorded Sex Assigned at Not on file Legal Sex Female 6:21 AM DEHAIRING MACHINE TENDER Gender Identity Not on file Sexual Orientation Not on file documented as of this encounter Plan of Treatment Not on file documented as of this encounter Visit Diagnoses Diagnosis Migraine, unspecified, without mention of intractable migraine without mention of status migrainosus- Primary documented in this encounter Care Teams Master At Arms Relationship Specialty Start Date End Date Wilfrid Lopez MD PCP - General Family Practice 07/15/12 documented as of this encounter
--- OUTSIDE RECORDS SUMMARY | 2025-05-25 09:31 | XMS_ITS | Encounter Summary ---
Author Organization [facility] Address [address] [place] [address] Care Team Providers Care Jowl Trimmer Name Role Phone Wilfrid Lopez MD Primary Care Provider Encounter Details Date Type Department Care Team (Latest Contact Info) Description 08/27/2003 Outpatient Historical [facility] SUPERVISOR ORDER TAKERS [address] [place] [address] Tom Mccann MD NO ADDRESS ON FILE SUPERVIS NORMAL 1ST PREG (Primary Dx) Social History Tobacco Use Types Packs/Day Years Used Date Smoking Tobacco: Never Assessed Comments Unknown Sex and Gender Information Value Date Recorded Sex Assigned at Not on file Legal Sex Female 6:21 AM RECONCILEMENT CLERK Gender Identity Not on file Sexual Orientation Not on file documented as of this encounter Plan of Treatment Not on file documented as of this encounter Visit Diagnoses Diagnosis Supervision of normal first - Primary documented in this encounter Care Teams Jowl Trimmer Relationship Specialty Start Date End Date Wilfrid Lopez MD PCP - General Family Practice 07/15/12 documented as of this encounter
--- OUTSIDE RECORDS SUMMARY | 2025-05-25 09:31 | XMS_ITS | Encounter Summary ---
Author Organization [employer] Address [address] [place] [address] Care Team Providers Care Associate Professor Of Art History Name Role Phone Tito Emmanuel DO Primary Care Provider [phone] Encounter Details Date Type Department Care Team [...] often do you attend chur ch or yazdanism services? More than 4 times per year 04/02/2022 Do you belong to any clubs o r organizations such as oriental orthodox groups, unions, fraternal or athletic groups, or [...] any time in the past 12 m [facility], were you homeless or living in a senior living (including now)? No 04/02/2022 Feeling Safe Answer [...] on file Legal Sex Female 1:14 PM DIRECTOR OF EPIDEMIOLOGY Gender Identity Not on file Sexual Orientation Not on file documented as of this encounter Plan of Treatment Not on file documented as of this encounter Visit Diagnoses Not on filedocumented in this encounter Care Teams Associate Professor Of Art History Relationship Specialty Start Date End Date Tito Emmanuel DO [address] [place] [address] PCP - General Family Practice 06/26/21 documented as of this encounter
--- OUTSIDE RECORDS SUMMARY | 2025-05-25 09:31 | XMS_ITS | Encounter Summary ---
Author Organization [facility] Address [address] [place] [address] Care Team Providers Care Counter Tender Name Role Phone Wilfrid Lopez MD Primary Care Provider [phone] Encounter Details Date Type Department Care Team (Latest Contact Info) Description 12/26/2003 Outpatient Historical [facility] ELECTRONIC SCALE ASSEMBLER AND TESTER [address] [place] [address] Tom Mccann MD NO ADDRESS ON FILE ROUT POSTPART FOLLOW-UP (Primary Dx) Social History Tobacco Use Types Packs/Day Years Used Date Smoking Tobacco: Never Assessed Comments Unknown Sex and Gender Information Value Date Recorded Sex Assigned at Not on file Legal Sex Female 6:21 AM OIL PIPE INSPECTOR HELPER Gender Identity Not on file Sexual Orientation Not on file documented as of this encounter Plan of Treatment Not on file documented as of this encounter Visit Diagnoses Diagnosis Routine follow-up- Primary documented in this encounter Care Teams Counter Tender Relationship Specialty Start Date End Date Wilfrid Lopez MD PCP - General Family Practice 07/15/12 documented as of this encounter
--- OUTSIDE RECORDS SUMMARY | 2025-05-25 09:31 | XMS_ITS | Encounter Summary ---
Author Organization [facility] Address [address] [place] [address] Care Team Providers Care Manager Sharepoint Name Role Phone Wilfrdi Lopez MD Primary Care Provider [phone] Encounter Details Date Type Department Care Team (Latest Contact Info) Description 08/13/2003 Outpatient Historical [facility] ASSOCIATE PROFESSOR OF ANTHROPOLOGY [address] [place] [address] Tom Mccann MD NO ADDRESS ON FILE SUPERVIS NORMAL 1ST PREG (Primary Dx) Social History Tobacco Use Types Packs/Day Years Used Date Smoking Tobacco: Never Assessed Comments Unknown Sex and Gender Information Value Date Recorded Sex Assigned at Not on file Legal Sex Female 6:21 AM ESCROW REPRESENTATIVE Gender Identity Not on file Sexual Orientation Not on file documented as of this encounter Plan of Treatment Not on file documented as of this encounter Visit Diagnoses Diagnosis Supervision of normal first - Primary documented in this encounter Care Teams Manager Sharepoint Relationship Specialty Start Date End Date Wilfrid Lopez MD PCP - General Family Practice 07/15/12 documented as of this encounter
--- OUTSIDE RECORDS SUMMARY | 2025-05-25 09:31 | XMS_ITS | Encounter Summary ---
Author Organization [facility] Address [address] [place] [address] Care Team Providers Care Lan Engineer Name Role Phone Wilfrid Lopez MD Primary Care Provider +1- [phone] Encounter Details Date Type Department Care Team (Latest Contact Info) Description 06/16/2005 Outpatient Historical [facility] Medicine [address] [phone] Tom Zayas MD [address] [place] [address] SUPERVIS OTHER NORMAL PREG (Primary Dx) Social History Tobacco Use Types Packs/Day Years Used Date Smoking Tobacco: Never Assessed Comments Unknown Sex and Gender Information Value Date Recorded Sex Assigned at Not on file Legal Sex Female 6:21 AM ENGINEER STATION MAINLINE Gender Identity Not on file Sexual Orientation Not on file documented as of this encounter Plan of Treatment Not on file documented as of this encounter Visit Diagnoses Diagnosis Supervision of other normal - Primary documented in this encounter Care Teams Lan Engineer Relationship Specialty Start Date End Date Wilfrid Lopez MD PCP - General Family Practice 07/15/12 documented as of this encounter
--- OUTSIDE RECORDS SUMMARY | 2025-05-25 09:31 | XMS_ITS | Encounter Summary ---
Author Organization [facility] Address [address] [place] [address] Care Team Providers Care Discharge Specialist Name Role Phone Wilfrid Lopez MD Primary Care Provider +1- [phone] Encounter Details Date Type Department Care Team (Late st Contact Info) Description 06/17/2006 Outpatient [facility] Orthopedics [id number] [place] [phone] Kris Gutierrez MD [address] [place] [phone] Pain in Joint, Lower Leg (Primary Dx); Pain in Joint, Pelvic Region and Thigh; Other Symptoms Referable to Pelvic Joint Social History Tobacco Use Types Packs/Day Years Used Date Smoking Tobacco: Never Assessed Comments Unknown Sex and Gender Information Value Date Recorded Sex Assigned at Not on file Legal Sex Female 6:21 AM COMPUTER MECHANIC Gender Identity Not on file Sexual Orientation Not on file documented as of this encounter Plan of Treatment Not on file documented as of this encounter Visit Diagnoses Diagnosis Pain in joint, lower leg- Primary Pain in joint, pelvic region and thigh Other symptoms referable to pelvic joint documented in this encounter Care Teams Discharge Specialist Relationship Specialty Start Date End Date Wilfrid Lopez MD PCP - General Family Practice 07/15/12 documented as of this encounter
--- OUTSIDE RECORDS SUMMARY | 2025-05-25 09:31 | XMS_ITS | Encounter Summary ---
Author Organization [facility] Address [address] [place] [address] Care Team Providers Care Pupil Personnel Services Director Name Role Phone Wilfrid Lopez MD Primary Care Provider +1- [phone] Encounter Details Date Type Department Care Team (Latest Contact Info) Description 07/14/2005 Outpatient Historical [facility] Medicine [address] [phone] Tom Zayas MD [address] [place] [address] UNSPECIFIED CHLAMYDIAL INFECTN (Primary Dx); SUPERVIS OTHER NORMAL PREG Social History Tobacco Use Types Packs/Day Years Used Date Smoking Tobacco: Never Assessed Comments Unknown Sex and Gender Information Value Date Recorded Sex Assigned at Not on file Legal Sex Female 6:21 AM TAG MARKER Gender Identity Not on file Sexual Orientation Not on file documented as of this encounter Plan of Treatment Not on file documented as of this encounter Visit Diagnoses Diagnosis Unspecified chlamydial infection, in conditions classified elsewhere and of unspecified site- Primary Supervision of other normal documented in this encounter Care Teams Pupil Personnel Services Director Relationship Specialty Start Date End Date Wilfrid Lopez MD PCP - General Family Practice 07/15/12 documented as of this encounter
--- OUTSIDE RECORDS SUMMARY | 2025-05-25 09:31 | XMS_ITS | Encounter Summary ---
Author Organization [facility] Address [address] [place] [address] Care Team Providers Care Visitor Service Assistant Name Role Phone Wilfrid Lopez MD Primary Care Provider Encounter Details Date Type Department Care Team (Latest Contact Info) Description 05/08/[address] [facility] [place] Medicine [place] [address] [phone] Michelle Whelan, [facility] [address] [phone] SUPERVIS OTHER NORMAL PREG (Primary Dx) Social History Tobacco Use Types Packs/Day Years Used Date Smoking Tobacco: Never Assessed Comments Unknown Sex and Gender Information Value Date Recorded Sex Assigned at Not on file Legal Sex Female 6:21 AM CREDIT UNION EXAMINER Gender Identity Not on file Sexual Orientation Not on file documented as of this encounter Plan of Treatment Not on file documented as of this encounter Visit Diagnoses Diagnosis Supervision of other normal - Primary documented in this encounter Care Teams Visitor Service Assistant Relationship Specialty Start Date End Date Wilfrid Lopez MD PCP - General Family Practice 07/15/12 documented as of this encounter
--- OUTSIDE RECORDS SUMMARY | 2025-05-25 09:31 | XMS_ITS | Encounter Summary ---
Author Organization [facility] Address [address] [place] [address] Care Team Providers Care Manufactured Buildings Supervisor Name Role Phone Wilfrid Lopez MD Primary Care Provider Encounter Details Date Type Department Care Team (Latest Contact Info) Description 03/28/[address] [facility] Family Medicine[address] [phone] Demetrius Dempsey MD [address] [phone] SUPERVIS OTHER NORMAL PREG (Primary Dx) Social History Tobacco Use Types Packs/Day Years Used Date Smoking Tobacco: Never Assessed Comments Unknown Sex and Gender Information Value Date Recorded Sex Assigned at Not on file Legal Sex Female 6:21 AM STOVE CARRIAGE OPERATOR Gender Identity Not on file Sexual Orientation Not on file documented as of this encounter Plan of Treatment Not on file documented as of this encounter Visit Diagnoses Diagnosis Supervision of other normal - Primary documented in this encounter Care Teams Manufactured Buildings Supervisor Relationship Specialty Start Date End Date Wilfrid Lopez MD PCP - General Family Practice 07/15/12 documented as of this encounter
--- OUTSIDE RECORDS SUMMARY | 2025-05-25 09:31 | XMS_ITS | Encounter Summary ---
Author Organization [facility] Address [address] [place] [address] Care Team Providers Care Score Caller Name Role Phone Wilfrid Lopez MD Primary Care Provider [phone] [phone] Encounter Details Date Type Department Care Team (Latest Contact Info) Description 09/10/2003 Outpatient Historical [facility] Radiology-[address] [phone] Tom Mccann MD NO ADDRESS ON FILE SUPERVIS NORMAL 1ST PREG (Primary Dx) Social History Tobacco Use Types Packs/Day Years Used Date Smoking Tobacco: Never Assessed Comments Unknown Sex and Gender Information Value Date Recorded Sex Assigned at Not on file Legal Sex Female 6:21 AM BARTENDERS Gender Identity Not on file Sexual Orientation Not on file documented as of this encounter Plan of Treatment Not on file documented as of this encounter Visit Diagnoses Diagnosis Supervision of normal first - Primary documented in this encounter Care Teams Score Caller Relationship Specialty Start Date End Date Wilfrid Lopez MD PCP - General Family Practice 07/15/12 documented as of this encounter
--- OUTSIDE RECORDS SUMMARY | 2025-05-25 09:31 | XMS_ITS | Encounter Summary ---
Author Organization [facility] Address [address] [place] [address] Care Team Providers Care Buckle Stringer Name Role Phone Wilfrid Lopez MD Primary Care Provider +1 [phone] Encounter Details Date Type Department Care Team (Latest Contact Info) Description 10/10/2003 Outpatient Historical [facility] Tom Mccann MD NO ADDRESS ON FILE SUPRV HIGH-RISK PREG NOS (Primary Dx) Social History Tobacco Use Types Packs/Day Years Used Date Smoking Tobacco: Never Assessed Comments Unknown Sex and Gender Information Value Date Recorded Sex Assigned at Not on file Legal Sex Female 6:21 AM ULTRASOUND SONOGRAPHER Gender Identity Not on file Sexual Orientation Not on file documented as of this encounter Plan of Treatment Not on file documented as of this encounter Visit Diagnoses Diagnosis Unspecified high-risk - Primary documented in this encounter Care Teams Buckle Stringer Relationship Specialty Start Date End Date Wilfrid Lopez MD PCP - General Family Practice 07/15/12 documented as of this encounter
--- OUTSIDE RECORDS SUMMARY | 2025-05-25 09:31 | XMS_ITS | Encounter Summary ---
Author Organization [facility] Address [address] [place] [address] Care Team Providers Care Motion And Time Study Teacher Name Role Phone Wilfrid Lopez MD Primary Care Provider [phone]- [phone] Encounter Details Date Type Department Care Team (Latest Contact Info) Description 07/14/2005 Outpatient Historical [facility] Medicine [address] [phone] Tom Zayas MD [address] [place] [address] UNSPECIFIED CHLAMYDIAL INFECTN (Primary Dx) Social History Tobacco Use Types Packs/Day Years Used Date Smoking Tobacco: Never Assessed Comments Unknown Sex and Gender Information Value Date Recorded Sex Assigned at Not on file Legal Sex Female 6:21 AM TELEPHONE INTERVIEWER Gender Identity Not on file Sexual Orientation Not on file documented as of this encounter Plan of Treatment Not on file documented as of this encounter Visit Diagnoses Diagnosis Unspecified chlamydial infection, in conditions classified elsewhere and of unspecified site- Primary documented in this encounter Care Teams Motion And Time Study Teacher Relationship Specialty Start Date End Date Wilfrid Lopez MD PCP - General Family Practice 07/15/12 documented as of this encounter
--- OUTSIDE RECORDS SUMMARY | 2025-05-25 09:31 | XMS_ITS | Encounter Summary ---
Author Organization [facility] Address [address] [place] [address] Care Team Providers Care State Game Protector Name Role Phone Wilfrid Lopez MD Primary Care Provider [phone]- [phone] Encounter Details Date Type Department Care Team (Latest Contact Info) Description 06/02/2005 Outpatient Historical [facility] Medicine [address] [phone] Tom Zayas MD [address] [place] [address] SUPERVIS OTHER NORMAL PREG (Primary Dx) Social History Tobacco Use Types Packs/Day Years Used Date Smoking Tobacco: Never Assessed Comments Unknown Sex and Gender Information Value Date Recorded Sex Assigned at Not on file Legal Sex Female 6:21 AM PRODUCT MANUFACTURING PROFESSIONAL Gender Identity Not on file Sexual Orientation Not on file documented as of this encounter Plan of Treatment Not on file documented as of this encounter Visit Diagnoses Diagnosis Supervision of other normal - Primary documented in this encounter Care Teams State Game Protector Relationship Specialty Start Date End Date Wilfrid Lopez MD PCP - General Family Practice 07/15/12 documented as of this encounter
--- OUTSIDE RECORDS SUMMARY | 2025-05-25 09:31 | XMS_ITS | Encounter Summary ---
Author Organization [facility] Address [address] [place] [address] Care Team Providers Care Histotechnologist Supervisor Name Role Phone Wilfrid Lopez MD Primary Care Provider [phone]- [phone] Encounter Details Date Type Department Care Team (Latest Contact Info) Description 07/09/2003 Outpatient Historical [facility] REPA[facility] 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
--- OUTSIDE RECORDS SUMMARY | 2025-05-25 09:31 | XMS_ITS | Encounter Summary ---
Author Organization [facility] Address [address] [place] [address] Care Team Providers Care Non Destructive Testing Engineer Name Role Phone Wilfrid Lopez MD Primary Care Provider [phone]- [phone] Encounter Details Date Type Department Care Team (Late st Contact Info) Description 04/28/2006 Outpatient Historical [facility] Orthopedics- 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
--- OUTSIDE RECORDS SUMMARY | 2025-05-25 09:31 | XMS_ITS | Encounter Summary ---
Author Organization [facility] Address [address] [place] [address] Care Team Providers Care Underwear Hemmer Name Role Phone Wilfrid Lopez MD Primary Care Provider Encounter Details Date Type Department Care Team (Latest Contact Info) Description 04/28/2005 Outpatient Historical [facility] Medicine [place] [address] [phone] Michelle Whelan, [facility] [address] [phone] SUPERVIS OTHER NORMAL PREG (Primary Dx) Social History Tobacco Use Types Packs/Day Years Used Date Smoking Tobacco: Never Assessed Comments Unknown Sex and Gender Information Value Date Recorded Sex Assigned at Not on file Legal Sex Female 6:21 AM RADIOLOGY SCHEDULER Gender Identity Not on file Sexual Orientation Not on file documented as of this encounter Plan of Treatment Not on file documented as of this encounter Visit Diagnoses Diagnosis Supervision of other normal - Primary documented in this encounter Care Teams Underwear Hemmer Relationship Specialty Start Date End Date Wilfrid Lopez MD PCP - General Family Practice 07/15/12 documented as of this encounter
--- OUTSIDE RECORDS SUMMARY | 2025-05-25 09:31 | XMS_ITS | Encounter Summary ---
Author Organization [facility] Address [address] [place] [address] Care Team Providers Care Bundle Clerk Name Role Phone Wilfrid Lopez MD Primary Care Provider [phone]- [phone] Encounter Details Date Type Department Care Team (Latest Contact Info) Description 06/25/2005 Outpatient Historical [facility] Medicine [address] [phone] Tom Zayas MD [address] [place] [address] SUPERVIS OTHER NORMAL PREG (Primary Dx) Social History Tobacco Use Types Packs/Day Years Used Date Smoking Tobacco: Never Assessed Comments Unknown Sex and Gender Information Value Date Recorded Sex Assigned at Not on file Legal Sex Female 6:21 AM MASTIC MAN Gender Identity Not on file Sexual Orientation Not on file documented as of this encounter Plan of Treatment Not on file documented as of this encounter Visit Diagnoses Diagnosis Supervision of other normal - Primary documented in this encounter Care Teams Bundle Clerk Relationship Specialty Start Date End Date Wilfrid Lopez MD PCP - General Family Practice 07/15/12 documented as of this encounter
--- OUTSIDE RECORDS SUMMARY | 2025-05-25 09:31 | XMS_ITS | Encounter Summary ---
Author Organization [facility] Address [address] [place] [address] Care Team Providers Care Commercial Subcontractor Name Role Phone Wilfrid Lopez MD Primary Care Provider [phone] Encounter Details Date Type Department Care Team (Latest Contact Info) Description 03/21/2003 Outpatient Historical [facility] Ambulance [address] [place] [address] AMBULANCE, [facility] ABDOMINAL PAIN UNSPEC SITE (Primary Dx) Social History Tobacco Use Types Packs/Day Years Used Date Smoking Tobacco: Never Assessed Comments Unknown Sex and Gender Information Value Date Recorded Sex Assigned at Not on file Legal Sex Female 6:21 AM MEAT SELECTOR Gender Identity Not on file Sexual Orientation Not on file documented as of this encounter Plan of Treatment Not on file documented as of this encounter Visit Diagnoses Diagnosis Abdominal pain, unspecified site- Primary documented in this encounter Care Teams Commercial Subcontractor Relationship Specialty Start Date End Date Wilfrid Lopez MD PCP - General Family Practice 07/15/12 documented as of this encounter
--- OUTSIDE RECORDS SUMMARY | 2025-05-25 09:31 | XMS_ITS | Encounter Summary ---
Author Organization [facility] Address [address] [place] [address] Care Team Providers Care Manager Latin Name Role Phone Wilfrid Lopez MD Primary Care Provider Encounter Details Date Type Department Care Team (Latest Contact Info) Description 05/08/2005 Outpatient Historical [facility] Medicine [place] [address] [phone] Michelle Whelan, [facility] [address] [phone] SUPERVIS OTHER NORMAL PREG (Primary Dx) Social History Tobacco Use Types Packs/Day Years Used Date Smoking Tobacco: Never Assessed Comments Unknown Sex and Gender Information Value Date Recorded Sex Assigned at Not on file Legal Sex Female 6:21 AM EXHIBIT ARTIST Gender Identity Not on file Sexual Orientation Not on file documented as of this encounter Plan of Treatment Not on file documented as of this encounter Visit Diagnoses Diagnosis Supervision of other normal - Primary documented in this encounter Care Teams Manager Latin Relationship Specialty Start Date End Date Wilfrid Lopez MD PCP - General Family Practice 07/15/12 documented as of this encounter
--- OUTSIDE RECORDS SUMMARY | 2025-05-25 09:31 | XMS_ITS | Encounter Summary ---
Author Organization [facility] Address [address] [place] [address] Care Team Providers Care Awning Frame Maker Name Role Phone Wilfrid Lopez MD Primary Care Provider [phone]- [phone] Encounter Details Date Type Department Care Team (Late st Contact Info) Description 12/01/2007 Outpatient Historical [facility]ulance [address] [place] [address] AMBULANCE, [facility] Social History Tobacco Use Types Packs/Day Years Used Date Smoking Tobacco: Never Assessed Comments Unknown Sex and Gender Information Value Date Recorded Sex Assigned at Not on file Legal Sex Female 6:21 AM ATHLETE MARKETING AGENT Gender Identity Not on file Sexual Orientation Not on file documented as of this encounter Plan of Treatment Not on file documented as of this encounter Visit Diagnoses Not on filedocumented in this encounter Care Teams Awning Frame Maker Relationship Specialty Start Date End Date Wilfrid Lopez MD PCP - General Family Practice 07/15/12 documented as of this encounter
--- OUTSIDE RECORDS SUMMARY | 2025-05-25 09:31 | XMS_ITS | Encounter Summary ---
Author Organization [facility] Address [address] [place] [address] Care Team Providers Care Building Maintenance Technician Name Role Phone Wilfrid Lopez MD Primary Care Provider +1 [phone] Encounter Details Date Type Department Care Team (Latest Contact Info) Description 07/09/2003 Outpatient [facility] Maternal and Medicine-Yari natarajan [address] [place] [phone] aJison Kelly II, MD [address] [place] [phone] FAMILY HERED DIS-ANTEPART (Primary Dx); PREG W OTHER POOR OBSTETRIC HISTORY; PREG STATE, INCIDENTAL Social History Tobacco Use Types Packs/Day Years Used Date Smoking Tobacco: Never Assessed Comments Unknown Sex and Gender Information Value Date Recorded Sex Assigned at Not on file Legal Sex Female 6:21 AM SENIOR ELECTRONICS DESIGN 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
--- OUTSIDE RECORDS SUMMARY | 2025-05-25 09:31 | XMS_ITS | Encounter Summary ---
Author Organization [facility] Address [address] [place] [address] Care Team Providers Care Jde Developer Name Role Phone Wilfrid Lopez MD Primary Care Provider [phone] [phone] Encounter Details Date Type Department Care Team (Late st Contact Info) Description 02/26/2006 Outpatient [facility] [address] [place] [address] AMBULANCE, [facility] Injury, Other and Unspecified, Unspecified Site (Primary Dx) Social History Tobacco Use Types Packs/Day Years Used Date Smoking Tobacco: Never Assessed Comments Unknown Sex and Gender Information Value Date Recorded Sex Assigned at Not on file Legal Sex Female 6:21 AM SUPERVISOR RESPIRATORY Gender Identity Not on file Sexual Orientation [...] Primary documented in this encounter Care Teams Jde Developer Relationship Specialty Start Date End Date Wilfrid Lopez MD PCP - General Family Practice 07/15/12 documented as of this encounter
--- OUTSIDE RECORDS SUMMARY | 2025-05-25 09:31 | XMS_ITS | Encounter Summary ---
Author Organization [facility] Address [address] [place] [address] Care Team Providers Care Slubber Frame Changer Name Role Phone Wilfrid Lopez MD Primary Care Provider [phone] Encounter Details Date Type Department Care Team (Latest Contact Info) Description 12/26/2003 Outpatient Historical [facility] [place] [address] [place] [phone] Tom Mccann MD NO ADDRESS ON FILE SCREENING MAL NEOP-CERVIX (Primary Dx) Social History Tobacco Use Types Packs/Day Years Used Date Smoking Tobacco: Never Assessed Comments Unknown Sex and Gender Information Value Date Recorded Sex Assigned at Not on file Legal Sex Female 6:21 AM DENTAL TECHNOLOGIST Gender Identity Not on file Sexual Orientation Not on file documented as of this encounter Plan of Treatment Not on file documented as of this encounter Visit Diagnoses Diagnosis Screening for malignant neoplasm of the cervix- Primary documented in this encounter Care Teams Slubber Frame Changer Relationship Specialty Start Date End Date Wilfrid Lopez MD PCP - General Family Practice 07/15/12 documented as of this encounter
--- OUTSIDE RECORDS SUMMARY | 2025-05-25 09:31 | XMS_ITS | Encounter Summary ---
Author Organization [facility] Address [address] [place] [address] Care Team Providers Care Independent Sales Representative Name Role Phone Wilfrid Lopez MD Primary Care Provider [phone] Encounter Details Date Type Department Care Team (Late st Contact Info) Description 10/25/2007 Outpatient Historical [facility] Family Medicine [address] [address] Tom Zayas MD [address] [place] [address] Social History Tobacco Use Types Packs/Day Years Used Date Smoking Tobacco: Never Assessed Comments Unknown Sex and Gender Information Value Date Recorded Sex Assigned at Not on file Legal Sex Female 6:21 AM COPY CENTER ASSOCIATE Gender Identity Not on file Sexual Orientation Not on file documented as of this encounter Plan of Treatment Not on file documented as of this encounter Procedures Procedure Name Priority Date/Time Associated Diagnosis Comments (BROTH-ENRICHED) GROUP B STREP DETECTION Routine 11/01/2007 3:15 PM COPY CENTER ASSOCIATE documented in this encounter Results * STREPTOCOCCUS GROUP B CULTURE (11/01/2007 3:15 PM COPY CENTER ASSOCIATE) STREPTOCOCCUS GROUP B CULTURE SPECIMEN DESCRIPTION: VAGINAL/RECTAL SPECIAL REQUESTS: NO KNOWN PCN ALLERGY GESTATIONAL AGE: 36 WEEKS CULTURE: NO GROUP B BETA STREPTOCOCCUS ISOLATED REPORT STATUS: FINAL [id number] [facility] SUSCEPTIBILITY PERFORMED ON [facility] 11/01/2007 3:15 PM COPY CENTER ASSOCIATE 11/01/2007 9:29 PM COPY CENTER ASSOCIATE us Tom Zayas MD MICROBIOLOGY - GENERAL ORDERA BLES Final Result [facility]# [id number] [address] [place] [address] documented in this encounter Visit Diagnoses Not on filedocumented in this encounter Care Teams Independent Sales Representative Relationship Specialty Start Date End Date Wilfrid Lopez MD PCP - General Family Practice 07/15/12 documented as of this encounter
--- OUTSIDE RECORDS SUMMARY | 2025-05-25 09:31 | XMS_ITS | Encounter Summary ---
Author Organization [facility] Address [address] [facility] Attn: Epic Prelude ADT [place] [address] Care Team Providers Care Navy Airspace Officer Name Role Phone Wilfrid Lopez MD Primary Care Provider [phone] Encounter Details Date Type Department Care Team (Late st Contact Info) Description 07/29/2003 Outpatient Historical Tom Mccann MD NO ADDRESS ON FILE DECREASED MOVMT-ANTEPARTUM (Primary Dx) Social History Tobacco Use Types Packs/Day Years Used Date Smoking Tobacco: Never Assessed Comments Unknown Sex and Gender Information Value Date Recorded Sex Assigned at Not on file Legal Sex Female 6:21 AM GEOSPATIAL ANALYST Gender Identity Not on file Sexual Orientation Not on file documented as of this encounter Plan of Treatment Not on file documented as of this encounter Visit Diagnoses Diagnosis Decreased movements, affecting management of mother, antepartum- Primary documented in this encounter Care Teams Navy Airspace Officer Relationship Specialty Start Date End Date Wilfrid Lopez MD PCP - General Family Practice 07/15/12 documented as of this encounter
--- OUTSIDE RECORDS SUMMARY | 2025-05-25 09:31 | XMS_ITS | Encounter Summary ---
Author Organization [facility] Address [address] [place] [address] Care Team Providers Care Content Coordinator Name Role Phone Wilfrid Lopez MD Primary Care Provider [phone] Encounter Details Date Type Department Care Team (Latest Contact Info) Description 09/03/2003 Outpatient Historical [facility] Maternal and Medicine-Alann[place]onny natarajan [address] [place] [address] Jaison Kelly II, MD [address] [place] [address] PREG COMPL NEC-ANTEPART (Primary Dx); MIGRAINE NOS INTRACTABLE; FAMILY HERED DIS-ANTEPART; DOWN SYNDROME Social History Tobacco Use Types Packs/Day Years Used Date Smoking Tobacco: Never Assessed Comments Unknown Sex and Gender Information Value Date Recorded Sex Assigned at Not on file Legal Sex Female 6:21 AM TANK FILLER Gender Identity Not on file Sexual [...] syndrome documented in this encounter Care Teams Content Coordinator Relationship Specialty Start Date End Date Wilfrid Lopez MD PCP - General Family Practice 07/15/12 documented as of this encounter
--- OUTSIDE RECORDS SUMMARY | 2025-05-25 09:31 | XMS_ITS | Encounter Summary ---
Author Organization [facility] Address [address] [place] [address] Care Team Providers Care Ear Nose Throat Surgeon Name Role Phone Wilfrid Lopez MD Primary Care Provider [phone] Encounter Details Date Type Department Care Team (Latest Contact Info) Description 10/26/2003 Outpatient Historical [facility] FLEX O WRITER OPERATOR [address] [place] [address] Tom Mccann MD NO ADDRESS ON FILE SUPERVIS NORMAL 1ST PREG (Primary Dx) Social History Tobacco Use Types Packs/Day Years Used Date Smoking Tobacco: Never Assessed Comments Unknown Sex and Gender Information Value Date Recorded Sex Assigned at Not on file Legal Sex Female 6:21 AM TRACK WATCHMAN Gender Identity Not on file Sexual Orientation Not on file documented as of this encounter Plan of Treatment Not on file documented as of this encounter Visit Diagnoses Diagnosis Supervision of normal first - Primary documented in this encounter Care Teams Ear Nose Throat Surgeon Relationship Specialty Start Date End Date Wilfrid Lopez MD PCP - General Family Practice 07/15/12 documented as of this encounter
--- OUTSIDE RECORDS SUMMARY | 2025-05-25 09:31 | XMS_ITS | Encounter Summary ---
Author Organization [facility] Address [address] [place] [address] Care Team Providers Care Fabric Separator Operator Name Role Phone Wilfrid Lopez MD Primary Care Provider [phone] Encounter Details Date Type Department Care Team (Latest Contact Info) Description 10/12/2003 Outpatient Historical [facility] Maternal and Medicine-Alannajonny natarajan [address] [place] [phone] Jaison Kelly II, MD [address] [place] [phone] PREG COMPL NEC-ANTEPART (Primary Dx); MIGRAINE NOS INTRACTABLE; FAMILY HERED DIS-ANTEPART; DOWN SYNDROME Social History Tobacco Use Types Packs/Day Years Used Date Smoking Tobacco: Never Assessed Comments Unknown Sex and Gender Information Value Date Recorded Sex Assigned at Not on file Legal Sex Female 6:21 AM CROWN AND BRIDGE TECHNICIAN Gender Identity Not on file Sexual [...] syndrome documented in this encounter Care Teams Fabric Separator Operator Relationship Specialty Start Date End Date Wilfrid Lopez MD PCP - General Family Practice 07/15/12 documented as of this encounter
--- OUTSIDE RECORDS SUMMARY | 2025-05-25 09:31 | XMS_ITS | Clinical Summary ---
Author Organization [facility] Address [address] [address] Care Team Providers Care Pump Mechanic Name Role Phone Wilfrid Lopez MD Primary Care Provider Allergies Active Allergy Reactions Criticality Noted Date [...] 60 Tablet 5 1 Active rizatriptan (MAXALT SURVEY ASSOCIATE) 5 mg Tablet, Rapid DissolveIndica tions:Chronic migraine [...] on file Legal Sex Female 6:21 AM HUNTING SALES LEADER Gender Identity Not on file Sexual Orientation [...] Comments DTAP/TDAP/TD VACCINES (2 - Tdap) 04/19/2002 04/18/20 02 HPV/Cotest (21-29) 2007 HPV VACCINES (1 - 3-dose SCD M series) 2013 CERVICAL CANCER SCREENING 2016 HPV/Cotest (30-65) 2016 PAP SMEAR 2016 05/14/2010, 05/12/2010 INFLUENZA VACCINE (#1) 2025 01/21/2020, 1995 HEPATITIS B VACCINES Completed 12/25/1997, 06/20/1997, 05/21/1997 Procedures Procedure Name Priority Date/Time Associated Diagnosis Comments CERV/VAG CYTOPATH, THIN PREP RESEARCH RN SPEC Routine 05/12/2010 from Last 3 Months or Most Recently Relevant to Health Maintenance Results * CERV/VAG CYTOPATH, THIN PREP RESEARCH RN SPEC (05/12/2010) FINAL REPORT EXTERNAL LAB Endocervical us Abstract Spg Provider PATHOLOGY/CYTOLOGY ORDERAB LES Final Result EXTERNAL LAB from Last 3 Months or Most Recently Relevant to Health Maintenance Insurance [employer] Care Teams Pump Mechanic Relationship Specialty Start Date End Date Wilfrid Lopez MD PCP - General Family Practice 07/15/12
--- OUTSIDE RECORDS SUMMARY | 2025-05-25 09:31 | XMS_ITS | Encounter Summary ---
Author Organization [facility] Address [address] [place] [address] Care Team Providers Care Medicaid Billing Clerk Name Role Phone Wilfrid Lopez MD Primary Care Provider [phone] Encounter Details Date Type Department Care Team (Latest Contact Info) Description 06/25/2005 Outpatient Historical [facility] [address] [address] Tom Zayas MD [address] [place] [address] SUPERVIS OTHER NORMAL PREG (Primary Dx) Social History Tobacco Use Types Packs/Day Years Used Date Smoking Tobacco: Never Assessed Comments Unknown Sex and Gender Information Value Date Recorded Sex Assigned at Not on file Legal Sex Female 6:21 AM ZONING ADMINISTRATOR Gender Identity Not on file Sexual Orientation Not on file documented as of this encounter Plan of Treatment Not on file documented as of this encounter Visit Diagnoses Diagnosis Supervision of other normal - Primary documented in this encounter Care Teams Medicaid Billing Clerk Relationship Specialty Start Date End Date Wilfrid Lopez MD PCP - General Family Practice 07/15/12 documented as of this encounter
--- OUTSIDE RECORDS SUMMARY | 2025-05-25 09:31 | XMS_ITS | Encounter Summary ---
Author Organization [facility] Address [address] [place] [address] Care Team Providers Care Water Main Installer Helper Name Role Phone Wilfrid Lopez MD Primary Care Provider [phone] Encounter Details Date Type Department Care Team (Latest Contact Info) Description 03/22/2004 Outpatient Historical [facility] [address] [place] [address] AMBULANCE, [facility] POISONING-ANTIHYPERT EN AGENT (Primary Dx) Social History Tobacco Use Types Packs/Day Years Used Date Smoking Tobacco: Never Assessed Comments Unknown Sex and Gender Information Value Date Recorded Sex Assigned at Not on file Legal Sex Female 6:21 AM SAP BODS DEVELOPER Gender Identity Not on file Sexual Orientation Not on file documented as of this encounter Plan of Treatment Not on file documented as of this encounter Visit Diagnoses Diagnosis Poisoning by other antihypertensive agents(972.6)- Primary Poisoning by other antihypertensive agents documented in this encounter Care Teams Water Main Installer Helper Relationship Specialty Start Date End Date Wilfrid Lopez MD PCP - General Family Practice 07/15/12 documented as of this encounter
--- OUTSIDE RECORDS SUMMARY | 2025-05-25 09:31 | XMS_ITS | Encounter Summary ---
Author Organization [facility] Address [address] [place] [address] Care Team Providers Care Blankbook Forwarder Name Role Phone Wilfrid Lopez MD Primary Care Provider Encounter Details Date Type Department Care Team (Latest Contact Info) Description 07/25/2003 Outpatient Historical [facility] HARVESTING CONTRACTOR [address] [place] [address] Tom Mccann MD NO ADDRESS ON FILE SUPERVIS NORMAL 1ST PREG (Primary Dx) Social History Tobacco Use Types Packs/Day Years Used Date Smoking Tobacco: Never Assessed Comments Unknown Sex and Gender Information Value Date Recorded Sex Assigned at Not on file Legal Sex Female 6:21 AM MANAGEMENT SPECIALIST Gender Identity Not on file Sexual Orientation Not on file documented as of this encounter Plan of Treatment Not on file documented as of this encounter Visit Diagnoses Diagnosis Supervision of normal first - Primary documented in this encounter Care Teams Blankbook Forwarder Relationship Specialty Start Date End Date Wilfrid Lopez MD PCP - General Family Practice 07/15/12 documented as of this encounter
--- OUTSIDE RECORDS SUMMARY | 2025-05-25 09:31 | XMS_ITS | Encounter Summary ---
Author Organization [facility] Address [address] [place] [address] Care Team Providers Care Horticultural Farm Manager Name Role Phone Wilfrid Lopez MD Primary Care Provider [phone] Encounter Details Date Type Department Care Team (Late st Contact Info) Description 02/26/2006 Emergency [facility] Emergency Department [address] [place] [address] Tom Cuelalr MD NO ADDRESS ON FILE Contusion of Knee (Primary Dx) Social History Tobacco Use Types Packs/Day Years Used Date Smoking Tobacco: Never Assessed Comments Unknown Sex and Gender Information Value Date Recorded Sex Assigned at Not on file Legal Sex Female 6:21 AM HEAD LOADER Gender Identity Not on file Sexual Orientation Not on file documented as of this encounter Plan of Treatment Not on file documented as of this encounter Visit Diagnoses Diagnosis Contusion of knee- Primary documented in this encounter Care Teams Horticultural Farm Manager Relationship Specialty Start Date End Date Wilfrid Lopez MD PCP - General Family Practice 07/15/12 documented as of this encounter
--- OUTSIDE RECORDS SUMMARY | 2025-05-25 09:31 | XMS_ITS | Encounter Summary ---
Author Organization [facility] Address [address] [place] [address] Care Team Providers Care .Net Architect Name Role Phone Tito Emmanuel DO Primary Care Provider [phone] Encounter Details Date Type Department Care Team [...] often do you attend chur ch or uatsdin services? More than 4 times per year 04/02/2022 Do you belong to any clubs o r organizations such as denominational groups, unions, fraternal or athletic groups, or [...] any time in the past 12 m [facility], were you homeless or living in a longterm (including now)? 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
--- OUTSIDE RECORDS SUMMARY | 2025-05-25 09:31 | XMS_ITS | Encounter Summary ---
Author Organization [facility] Address [address] [place] [address] Care Team Providers Care Emergency Veterinarian Name Role Phone Wilfrid Lopez MD Primary Care Provider [phone] Encounter Details Date Type Department Care Team (Latest Contact Info) Description 10/10/2003 Outpatient Historical [facility] [place] COUNSELING CENTER DIRECTOR 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
--- OUTSIDE RECORDS SUMMARY | 2025-05-25 09:31 | XMS_ITS | Encounter Summary ---
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
--- OUTSIDE RECORDS SUMMARY | 2025-05-25 09:31 | XMS_ITS | Clinical Summary ---
Author Organization [facility] ([place]) Address [address] [address] Care Team Providers Care Athletic Coordinator Name Role Phone Tito Emmanuel DO Primary Care Provider [phone] Allergies Active Allergy Reactions Criticality Noted Date Comments Codeine Hives,Nausea and Vomiting High 07/02/2008 Tramadol Other (See Comments) ,Renal Dysfunctions Medium 06/18/2009 Medications acetaminophen (TYLENOL ORAL) Take by mouth. 0 Active multivitamin (DAILY-RUTH) tablet Take 1 Tablet by mouth daily. Active busPIRone (BUSPAR) 5 mg tablet Take 5 mg by mouth 3 times daily. Active hydrOXYzine HCL (ATARAX) 10 mg tablet Take 10 mg by mouth 2 times daily. Active buPROPion HCL (WELLBUTRIN SR) 100 mg Sustained Release 12 hour tablet Take 100 mg by mouth 2 times daily. Active naltrexone (DEPADE) 50 mg tablet Take 50 mg by mouth daily. Active ibuprofen (MOTRIN) 800 mg tablet Take 1 Tablet (800 mg) by mouth every 8 hours as needed for Pain. 30 Tablet 5 Active OLANZapine (ZyPREXA) 5 mg tablet Take 5 mg by mouth daily at bedtime. 5 Active POTASSIUM GLUCONATE ORAL Take by mouth daily. Active iron bisgly,ps-FA-B, C 12-succ 65 mg-65 mg- 1,000 mcg (24) Tablet Take by mouth daily. Active albuterol sulfate HFA 90 mcg/actuation aerosol inhaler Take 2 Puffs by inhalation every 4 hours as needed for Shortness of Breath or Wheezing (cough). 8.5 Gram Active valACYclovir (Valtrex) 1 gram tabletIndicatio ns:Rib pain on left side Take 1 Tablet (1 Gram) by mouth 3 times daily for 7 days. 21 Tablet 5 05/01/20 Active Problems Problem Noted Date Diagnosed Date Chronic daily headache 02/27/2020 Numbness and tingling of right side of face 01/30 Chiari malformation type I 04/29/2011 Medullary sponge kidney 04/28/2011 Anemia 09/30/2009 Bipolar affective disorder 09/23/2009 Migraine 09/23/2009 PTSD (post-traumatic stress disorder) 09/23/2009 ADD (attention deficit disorder with hyperactivi ty) 09/23/2009 Resolved Problems Problem Noted Date Diagnosed Date Resolved Date Chronic hepatitis C virus ge notype 2 infection 12/18/2021 04/24/2025 Multiple personality disorder 09/23/2009 04/24/2025 Encounters Date Type Department Care Team Description 05/22/2025 External Device Data STL ABSTRACTION Provider, Abstract 05/22/2025 External Device Data ST[facility] ABSTRACTION Provider, Abstract 05/22/2025 External Device Data ST[facility] ABSTRACTION Provider, Abstract 05/01/2025 External Device Data ST[facility] ABSTRACTION Provider, Abstract 05/01/2025 External Device Data ST[facility] ABSTRACTION Provider, Abstract 04/25/2025 Results Follow-Up [address] [phone] Michelle Whelan FNP COMPREHENSIVE METABOLIC PANEL 04/25/2025 External Device Data STL ABSTRACTION Provider, Abstract 04/24/2025 11:00 AM CDT Office Visit [address] [address] Michelle Whelan FNP Rib pain on left side (Primary Dx); Hypokalemia; History of chronic kidney disease; Medullary sponge kidney 04/24/2025 External Device Data STL ABSTRACTION Provider, Abstract 04/24/2025 External Device Data STL ABSTRACTION Provider, Abstract 04/22/2025 11:06 AM CDT - 04/22/2025 1:43 PM CDT Emergency [facility] Emergency Medicine [address] [place] [phone] Victoriano Ashby MD Chest pain, unspecified type (Primary Dx); 2019 novel coronavirus disease (COVID-19) Discharge Disposition: Home or Self Care 04/22/2025 Travel 04/18/2025 External Device Data STL ABSTRACTION Provider, Abstract 04/17/2025 External Device Data STL ABSTRACTION Provider, Abstract 04/03/2025 External Device Data STL ABSTRACTION Provider, Abstract 04/03/2025 External Device Data STL ABSTRACTION Provider, Abstract 03/20/2025 Patient Outreach [facility] and Access [address] [place] [address] Leny Andrew Referral (Per ER PARs patient is listed as uninsured); Insurance Issues 03/14/2025 External Device Data STL ABSTRACTION Provider, Abstract 03/13/2025 External Device Data STL ABSTRACTION Provider, Abstract 03/06/2025 External Device Data STL ABSTRACTION Provider, Abstract 03/06/2025 External Device Data STL ABSTRACTION Provider, Abstract 03/06/2025 External Device Data STL ABSTRACTION Provider, Abstract 03/05/2025 7:12 PM CDT - 03/05/2025 7:47 PM CDT Emergency [facility] Emergency Medicine [address] [place] [phone] John Vargas, DO Hypokalemia (Primary Dx); Dark stools Discharge Disposition: Home or Self Care 03/05/2025 Travel from Last 3 Months Immunizations Immunization Administration [...] Smoking Tobacco: Former Cigarettes Smokeless Tobacco: Never Tobacco Cessation:Counseling Given: Not Answered Alcohol Use Standard Drinks/Week Comments Not Currently [...] How often do you attend chur or latter-day services? More than 4 times per year 04/02/2022 Do you belong to any clubs o r organizations such as islam groups, unions, fraternal or athletic groups, or [...] any time in the past 12 m [facility], were you homeless or living in a chcf (including now)? 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 Gender Identity Not on file Sexual Orientation Not on file Last Filed Vital Signs Vital Sign Reading Time Taken Comments Blood Pressure 134/86 04/24/2025 11:02 AM CDT Pulse 87 04/24/2025 11:02 AM CDT Temperature 37.6 C (99.7 F) 04/24/2025 11:02 AM CDT Respiratory Rate 17 04/24/2025 11:0 2 AM CDT Oxygen Saturation 98% 04/24/2025 11: 02 AM CDT Inhaled Oxygen Concentration - - Weight 74.8 kg (164 lb 12.8 oz) 025 11:02 AM CDT Height 175.3 cm (5' 9 ) 04/24/2025 11:0 2 AM CDT Body Mass Index 24.34 04/24/2025 11:02 AM CDT Plan of Treatment Health Maintenance Due Date Last Done Comments DTAP/TDAP/TD VACCINES (4 - Tdap) 04/19/2002 04/18/2002, 04/09/1988, 1986 Preventative Visit-Managed Medicaid 2005 HPV/Cotest (21-29) 2007 HPV VACCINES (1 - 3-dose SCD M series) 2013 CERVICAL CANCER SCREENING 2016 HPV/Cotest (30-65) 2016 PAP SMEAR 2016 05/12/2010 INFLUENZA VACCINE (#1) 2025 07/18/1996 HEPATITIS B VACCINES Completed 12/25/1997, 12/25/1997, 06/20/1997, Additional history exists Procedures Procedure Name Priority Date/Time Associated Diagnosis Comments COMPREHENSIVE METABOLIC PANEL Routine 04/24/2025 11:29 AM CDT Hypokalemia History of chronic kidney disease OXYGEN VIA DEVICE TO KEEP O2 SAT ABOVE Stat 04/22/2025 12:11 PM CDT XR CHEST PA OR AP 1 VW Stat 12:04 PM CDT D-DIMER Stat 04/22/2025 11:10 AM CDT BRAIN NATRIURETIC PEPTIDE, BNP OR PROBNP Stat 04/22/2025 11:10 AM CDT EXTRA TUBE (BLUE) Stat 04/22/2025 11: 10 AM CDT EXTRA TUBE Stat 04/22/2025 11:10 AM CDT COMPREHENSIVE METABOLIC PANEL Stat 04/22/2025 11:10 AM CDT CBC WITH DIFFERENTIAL Stat 04/22/2025 11:10 AM CDT TROPONIN BASELINE, 5TH GEN Stat 04/22/2025 11:10 AM CDT COMPREHENSIVE METABOLIC PANEL Stat 03/05/2025 5:00 PM CDT CBC WITH DIFFERENTIAL Stat 03/05/2025 5:00 PM CDT from Last 3 Months Results * COMPREHENSIVE METABOLIC PANEL (04/24/2025 11:29 AM CDT) Only the most recent of3 resultswithin the time period is included. GLUCOSE 89 65 - 99 mg/dL [facility] Comment: Fasting reference interval BUN 9 7 - 25 mg/dL [facility] CREATININE 0.72 0.50 - 0.97 mg/dL [facility] GFR 110 > OR = 60 mL/min/1. 73m2 [facility] BUN/CREAT RATIO SEE NOTE: 6 - 22 (calc) [facility] Comment: Not Reported: BUN and Creatinine are within reference range. SODIUM 139 135 - 146 mmol/L [facility] POTASSIUM 3.9 3.5 - 5.3 mmol/L [facility] CHLORIDE 107 98 - 110 mmol/L [facility] CO2 22 20 - 32 mmol/L [facility] CALCIUM 8.9 8.6 - 10.2 mg/dL [facility] TOTAL PROTEIN 6.5 6.1 - 8.1 g/dL [facility] ALBUMIN 4.1 3.6 - 5.1 g/dL [facility] GLOBULIN 2.4 1.9 - 3.7 g/dL (calc) [facility] ALBUMIN/GLOBULIN RATIO 1.7 1.0 - 2.5 (calc) [facility] BILIRUBIN TOTAL 0.4 0.2 - 1.2 mg/dL [facility] ALKALINE PHOSPHATASE 75 31 - 125 U/L [facility] AST 16 10 - 30 U/L [facility] ALT 13 6 - 29 U/L [facility] Comment: Test Performed at: [facility] [address] [address], [place] [address] Yariel Pretty MD Blood 04/24/2025 11:2 9 AM CDT 04/25/2025 1:05 AM CDT us Michelle Whelan CHEMICAL PUMPER CHEMISTRY ORDERABLES Final Re sult [facility] [phone] [email or web address] [address] [place] [address] * XR CHEST PA OR AP 1 VW (04/22/2025 12:04 PM CDT) Anatomical Region Laterality Modality Chest Computed Radiogr aphy 04/22/2025 12:0 4 PM CDT Impressions 04/22/2025 12:15 PM CDT Impression: The cardiomediastinal structures are within normal limits. No pulmonary consolidation, pleural effusion or pneumothorax is identified. The osseous structures appear grossly intact. Narrative 04/22/2025 12:15 PM CDT Exam: XR CHEST PA OR AP 1 VW Date/Time of Exam: 04/22/2025 12:04 PM Reason For Exam: Chest Pain. Diagnosis: See Reason for Exam. Comparison: March 09, 2006. Procedure Note Sergio Germain MD - 04/22/2025 Exam: XR CHEST PA OR AP 1 VW Date/Time of Exam: 04/22/2025 12:04 PM Reason For Exam: Chest Pain. Diagnosis: See Reason for Exam. Comparison: March 09, 2006. Impression: The cardiomediastinal structures are within normal limits. No pulmonary consolidation, pleural effusion or pneumothorax is identified. The osseous structures appear grossly intact. Victoriano Ashby MD DIAGNOSTIC IMAGING ORDER DARRELL Final Result * EXTRA TUBE (BLUE) (04/22/2025 11:10 AM CDT) Blood Venipuncture / Unknown 04/22/2025 11:10 AM CDT 04/22/2025 12:12 PM CDT Victoriano Ashby MD HEMATOLOGY ORDERABLES Fi nal Result [facility] # [id number] [address] [place] [address] * TROPONIN BASELINE, 5TH GEN (04/22/2025 11:10 AM CDT) TROPONIN T, BASELINE 5TH GEN <6 <=10 ng/L 04/22/2025 12:33 PM [facility] Blood Venipuncture / Unknown 04/22/2025 11:10 AM CDT 04/22/2025 12:12 PM CDT Narrative [facility] - 04/22/2025 12:33 PM CDT Troponin Undetectable Victoriano Ashby MD CHEMISTRY ORDERABLES Fin al Result [facility] CLIA # [id number] [address] [place] [address] * CBC WITH DIFFERENTIAL (04/22/2025 11:10 AM CDT) Only the most recent of2 resultswithin the time period is included. WBC 4.8 4.0 - 10.0 K/uL 04/22/2025 12:16 PM [facility] RBC 4.18 3.93 - 5.22 M/uL 04/22/2025 12:16 PM [facility] HEMOGLOBIN 13.0 11.2 - 15.7 g/dL 04/22/2025 12:16 PM [facility] HEMATOCRIT 38.8 34.1 - 44.9 % 04/22/2025 12:16 PM [facility] MCV 92.8 79.4 - 94.8 fL 04/22/2025 12:16 PM [facility] MCH 31.1 25.6 - 32.2 pg 04/22/2025 12:16 PM [facility] MCHC 33.5 32.2 - 35.5 g/dL 04/22/2025 12:16 PM [facility] RDW 13.5 11.0 - 14.5 % 04/22/2025 12:16 PM [facility] RDW-STDEV 46.1 36.9 - 56.9 fL 04/22/2025 12:16 PM [facility] PLATELETS 322 163 - 337 K/uL 04/22/2025 12:16 PM [facility] MPV 10.1 10.0 - 14.8 fL 04/22/2025 12:16 PM [facility] NEUTROPHILS 55 34 - 71 % 04/22/2025 12:16 PM [facility] LYMPHOCYTES 37 19 - 52 % 04/22/2025 12:16 PM [facility] MONOCYTES 6 5 - 13 % 04/22/2025 12:16 PM [facility] EOSINOPHILS 1 1 - 6 % 04/22/2025 12:16 PM [facility] BASOPHILS 1 0 - 1 % 04/22/2025 12:16 PM [facility] IMMATURE GRANULOCYTES 0 % 04/22/2025 12:16 PM [facility] NEUTROPHIL ABSOLUTE 2.64 1.56 - 6.13 K/uL 04/22/2025 12:16 PM [facility] LYMPHOCYTE ABSOLUTE 1.76 1.20 - 3.40 K/uL 04/22/2025 12:16 PM [facility] MONOCYTE ABSOLUTE 0.27 0.24 - 0.36 K/uL 04/22/2025 12:16 PM [facility] EOSINOPHIL ABSOLUTE 0.06 0.04 - 0.36 K/uL 04/22/2025 12:16 PM [facility] BASOPHILS ABSOLUTE 0.03 0.01 - 0.08 K/uL 04/22/2025 12:16 PM [facility] IMMATURE GRANULOCYTES ABSOLUTE 0.00 K/uL 04/22/2025 12:16 PM [facility] Blood Venipuncture / Unknown 04/22/2025 11:10 AM CDT 04/22/2025 12:12 PM CDT us Victoriano Ashby MD HEMATOLOGY ORDERABLES Fi nal Result [facility] CLIA # [id number] [address] [place] [address] * D-DIMER (04/22/2025 11:10 AM CDT) D-DIMER QUANT <0.15 <0.50 ug/mL FEU 04/22/2025 12:45 PM CDT [facility] Blood Venipuncture / Unknown 04/22/2025 11:10 AM CDT 04/22/2025 12:12 PM CDT Narrative [facility] - 04/22/2025 12:45 PM CDT D-Dimer assay cutoff value for exclusion of DVT and/or PE is <0.50 ug/mL FEU. us Victoriano Ashby MD HEMATOLOGY ORDERABLES Fi nal Result Performing Organization Address [facility] Co de Phone Number [facility] CLIA # [id number] [address] [place] [id number] * BRAIN NATRIURETIC PEPTIDE, BNP OR PROBNP (04/22/2025 11:10 AM CDT) PROBNP, N TERMINAL 47 0 - 125 pg/mL 04/22/2025 12:45 PM CDT [facility] Comment: INTERPRETIVE COMMENT based on diagnosis: Diagnostic NT pro-BNP cutoffs for Heart Failure in the absence of renal failure is suggested for the following ranges <75 years: <125 pg/mL >=75 years: <450 pg/mL Exclusionary rule out cut-point for Acute Decompensated Heart Failure(ADHF) All ages: <300 pg/mL Diagnostic NT pro-BNP cutoffs for Acute Decompensated Heart Failure(ADHF) in the absence of renal failure is suggested for the following ages <50 years: > 450 pg/mL 50-75 years: > 900 pg/mL >75 years: >1800 pg/mL Blood Venipuncture / Unknown 04/22/2025 11:10 AM CDT 04/22/2025 12:12 PM CDT us Victoriano Ashby MD CHEMISTRY ORDERABLES Fin al Result Performing Organization Address City/[facility]/ZIP Co de Phone Number [facility] CLIA # [id number] [address] [place] [address] from Last 3 Months Insurance MEDICAID [place] Care Teams Athletic Coordinator Relationship Specialty Start Date End Date Tito Emmanuel DO [address] [place] [address] PCP - General Family Practice 06/26/21
--- OUTSIDE RECORDS SUMMARY | 2025-05-25 09:31 | XMS_ITS | Encounter Summary ---
Author Organization [facility] Address [address] [place] [address] Care Team Providers Care Building Maintenance Supervisor Name Role Phone Wilfrid Lopez MD Primary Care Provider [phone] Encounter Details Date Type Department Care Team (Latest Contact Info) Description 09/10/2003 Outpatient Historical [facility] BOILER ENGINEER 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
--- OUTSIDE RECORDS SUMMARY | 2025-05-25 09:32 | XMS_ITS | Encounter Summary ---
Author Organization [facility] Address [address] [place] [address] Care Team Providers Care Medical Care Evaluation Specialist Name Role Phone Wilfrid Lopez MD Primary Care Provider [phone] Encounter Details Date Type Department Care Team (Latest Contact Info) Description 06/12/2003 Outpatient Historical [facility] Tom Mccann MD NO ADDRESS ON FILE SUPERVIS NORMAL 1ST PREG (Primary Dx) Social History Tobacco Use Types Packs/Day Years Used Date Smoking Tobacco: Never Assessed Comments Unknown Sex and Gender Information Value Date Recorded Sex Assigned at Not on file 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
--- OUTSIDE RECORDS SUMMARY | 2025-05-25 09:32 | XMS_ITS | Encounter Summary ---
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
--- OUTSIDE RECORDS SUMMARY | 2025-05-25 09:32 | XMS_ITS | Encounter Summary ---
Author Organization [facility] Address [address] [place] [address] Care Team Providers Care Manager Security Name Role Phone Wilfrid Lopez MD Primary Care Provider [phone] Encounter Details Date Type Department Care Team (Late st Contact Info) Description 09/27/2007 Outpatient Historical [facility] Family Medicine [address] [phone] Tom Zayas MD [address] [place] [address] Social History Tobacco Use Types Packs/Day Years Used Date Smoking Tobacco: Never Assessed Comments Unknown Sex and Gender Information Value Date Recorded Sex Assigned at Not on file Legal Sex Female 6:21 AM QUALITY IMPROVEMENT ENGINEER Gender Identity Not on file Sexual Orientation Not on file documented as of this encounter Plan of Treatment Not on file documented as of this encounter Procedures Procedure Name Priority Date/Time Associated Diagnosis Comments GLUCOSE TOLERANCE NON GESTATIONAL 3 HR Routine 10/04/2007 9:49 AM QUALITY IMPROVEMENT ENGINEER documented in this encounter Results * GLUCOSE TOLERANCE 3HR (10/04/2007 9:49 AM QUALITY IMPROVEMENT ENGINEER) GLUCOSE FASTING 84 70 - 100 MG/DL [facility] GLUCOSE, 1HR 159 MG/DL [facility] [employer] [facility] GLUCOSE, 2HR 102 MG/DL [facility] [employer] [facility] GLUCOSE, 3HR 61 MG/DL [facility] [employer] [facility] 10/04/2007 9:49 AM QUALITY IMPROVEMENT ENGINEER 10/04/2007 9:50 AM QUALITY IMPROVEMENT ENGINEER us Tom Zayas MD CHEMISTRY ORDERABLES Final Re sult [facility]# [id number] [address] [place] [address] documented in this encounter Visit Diagnoses Not on filedocumented in this encounter Care Teams Manager Security Relationship Specialty Start Date End Date Wilfrid Lopez MD PCP - General Family Practice 07/15/12 documented as of this encounter
--- NOTE | 2025-05-25 09:42 | XR_ITS ---
WS: [id number] Exam: XR chest 1V portable [id number] Date/Time of Exam: 05/25/2025 9:46 AM Reason For Exam: sob Comparison 08/19/2023. The lungs are fully inflated and clear. Normal cardiomediastinal silhouette. Unremarkable bony structures. XR/XR chest 1V portable [id number] IMPRESSION: 1. Negative chest.
--- NOTE | 2025-05-25 09:42 | W.ED.SOB ---
HPI - SOB/Dyspnea General: Chief Complaint: Chest Pain Stated Complaint: chest pains Time Seen by Provider: 05/25/25 09:29 Source: patient and family Mode of arrival: ambulatory Limitations: no limitations History of Present Illness: HPI Narrative: Patient is a 40-year-old female presents to ED today along with her significant other for evaluation of shortness of breath, chest pain, retaining fluid . She states symptoms have been present over the past month or so. Significant other states she has always talking about how she cannot breathe and at times seems to be gasping for air . She states she has a history of medullary sponge disease. She has a previous ex drug addict with history of hepatitis but states she has been treated for this. She states upon arrival to the emergency department she feels pretty good now . She does feel like her abdomen is swollen but is not having pain. She reports sock indentations of her legs and feeling like her rings are tight. She feels like she has had weight gain recently. MD elicited complaint: shortness of breath and chest pain Onset (ago): week(s) Timing: constant Severity: moderate Exacerbating factors: lying flat and exertion Relieving factors: nothing Associated symptoms: Reports chest pain and orthopnea; Deny abdominal pain, chest congestion, dizziness, extremity pain, fever(s), lightheadedness, nausea, palpitations, syncope or vomiting Treatment prior to arrival: none Related Data Home Medications ?Medication ?Instructions ?Recorded ?Confirmed bupropion HCl 150 mg 24 hr tablet, 150 mg PO DAILY 05/25/25 05/25/25 extended release buspirone 10 mg tablet 10 mg PO TID PRN Anxiety 05/25/25 05/25/25 cyclobenzaprine 10 mg tablet 10 mg PO TID PRN Spasms 05/25/25 05/25/25 hydroxyzine pamoate 50 mg capsule 50 mg PO TID PRN depression 05/25/25 05/25/25 naltrexone 50 mg tablet 50 mg PO DAILY PRN opioid 05/25/25 05/25/25 dependence olanzapine 5 mg tablet 5 mg PO BEDTIME 05/25/25 05/25/25 prednisone 20 mg tablet 40 mg PO QAM x5days 05/25/25 05/25/25 Previous Rx's ?Medication ?Instructions ?Recorded furosemide 20 mg tablet (Lasix) 20 mg PO DAILY #4 tabs 05/25/25 Allergies Allergy/AdvReac Type Severity Reaction Status Date / Time codeine Allergy Unknown unknown Verified 06/27/24 10:45 tramadol Allergy Unknown unknown Verified 06/27/24 10:45 magnesium Allergy unk Verified 06/27/24 10:45 Review of Systems Const: Denies: fever(s), chills, body aches, fatigue or malaise ENMT: Denies: throat pain, odynophagia, nasal discharge, nasal congestion or sinus pain Card: Reports: chest pain, edema, swelling of feet/ankles, dyspnea on exertion and orthopnea; Denies: palpitations, irregular heart rhythm, lightheadedness, syncope, pre-syncope, leg pain with exertion or acrocyanosis Resp: Reports: dyspnea; Denies: productive cough, non-productive cough, wheezing, pain on inspiration, change in phlegm color or chest congestion GI: Reports: bloating; Denies: abdominal pain, nausea, vomiting, heartburn, diarrhea, GI cramping or change in bowel habits : Denies: flank pain, difficulty voiding, dysuria, urinary frequency or hematuria Musc: Reports: extremity swelling; Denies: neck pain, back pain, extremity pain, joint pain, joint swelling or joint redness Skin/Breast: Denies: rash Neuro: Denies: headache(s), numbness in extremities, weakness in extremities, sensory changes or dizziness PFSH ED PFSH: Medical History History of uterine fibroid Family History Father Cancer kidney and lungs, blood Clotting disorder Chronic kidney disease (CKD) Heart disease Diabetes Grandfather Cancer blood, bones, and lungs Grandmother Clotting disorder Heart disease maternal and paternal Diabetes paternal Mother Heart disease Denies family history of Bleeding disorder Stroke Social History Smoking and tobacco/nicotine status: former use of tobacco/nicotine Quit status (tobacco/nicotine): not considering quitting Second hand smoke exposure: No Alcohol intake: current Alcohol intake frequency: holidays/special occasions only Substance/Drug Use: former Female Reproductive History: Spontaneous abortions: No Physical Exam Const: COMMON NORMALS: no acute distress, patient oriented x3, no limitations, alert and well nourished GENERAL APPEARANCE: cooperative ORIENTATION/CONSCIOUSNESS: Yes awake, Yes oriented to person, Yes oriented to place and Yes oriented to time HENMT: COMMON NORMALS: normocephalic and atraumatic HEAD & SCALP: normal to inspection, normocephalic and atraumatic FACE & SINUS: normal facial exam TEETH & GINGIVA: Yes caries and Yes poor dentition THROAT: posterior oropharynx normal and tonsils normal Eye: COMMON NORMALS: no scleral icterus GENERAL EYE: appearance normal, both eyes and all related structures Neck/C-Spine: COMMON NORMALS: no lymphadenopathy and no JVD Chest: COMMONS NORMALS: normal inspection of the chest and normal palpation of entire chest wall Resp: COMMON NORMALS: normal respiratory effort and clear to auscultation bilaterally AUSCULTATION: clear to auscultation bilaterally Cardio: COMMON NORMALS: no JVD and regular rhythm RATE: tachycardic RHYTHM: regular rhythm GI: COMMON NORMALS: Soft to palpation, non-tender and no masses AUSCULTATION: Yes normoactive bowel sounds PALPATION: Yes Soft to palpation, No Tenderness to palpation present (GI), No Guarding due to palpation present (GI) and No Rigid due to palpation : COMMON NORMALS: Yes no CVA tenderness BLADDER/KIDNEY EXAM: Yes no CVA tenderness Back/Pelvis: COMMON NORMALS: no CVA tenderness Extremity: COMMON NORMALS: capillary refill normal, no clubbing, cyanosis or edema, no calf tenderness and no pedal edema GENERAL: Yes normal exam except as noted Neuro: REAL COMA SCALE: document GCS findings [place] coma scale eye opening: Spontaneous [place] coma scale verbal response: Orientated Real coma scale motor response: Obey commands [place] coma scale total score: 15 COMMON NORMALS: patient oriented x3, moves all extremities, no focal motor deficits, no sensory deficits noted and gait normal SENSORIUM/ORIENTATION: Yes alert, Yes oriented to person, Yes oriented to place and Yes oriented to time Skin: COMMON NORMALS: no rashes or lesions noted GENERAL SKIN EXAM: no rashes or lesions noted Course Vital Signs: Vital signs: Vital Signs Temperature 98.7 F 05/25/25 09:28 Pulse Rate 102 H 05/25/25 11:28 Respiratory Rate 17 05/25/25 09:28 Blood Pressure 138/85 05/25/25 09:28 Pulse Oximetry 94 05/25/25 11:28 Oxygen Delivery Me thod Room Air 05/25/25 09:28 MDM - SOB/Dyspnea Medical Decision Making Patient clinically appears in absolutely no acute distress. She is satting normally. She clinically does not appear overly fluid overloaded. Her CXR is negative without evidence of effusion/pulmonary edema. She was initially tachycardic upon arrival but this has improved-HR 102 during my discharge. Blood work showing a normal white count. Troponin and D-dimer ordered due to her complaint of chest pain and shortness of breath. These are unremarkable. Her EKGs are nonischemic. BNP is scantly elevated at 142. Her UA does not appear suspicious for infection. UDS is unremarkable. Her alcohol is 184-patient states she does not drink. She states her alcohol has also been registering during her drug/alcohol testing for drug court. She tells me repeatedly she is not drinking. She denies ingestion of other products such as mouthwash, cough syrups, etc. Rare but auto-brewery syndrome? Serum ketones are negative. Ultimately patient is stable for discharge from emergency dept. She definitely needs a PCP for follow-up so this has been placed. We also discussed getting back into see nephrology due to her kidney disease. Looking at previous documentation-she has had almost identical symptoms in the past. She does states she had been on some Lasix for a few days which seemed to help so we will repeat this today. Return to ED precautions discussed. Differential Diagnosis Likely congestive heart failure and pulmonary embolism Medical Records I reviewed the patient's medical records. Lab Data I reviewed the patient's lab results. 05/25/25 10:13 05/25/25 10:13 Labs/Radiology: Radiology Impressions Chest X-Ray 05/25/25 09:42 IMPRESSION: 1. Negative chest. Laboratory Results WBC 9.59 10^3/uL (3.29-11.43) 05/25/25 10:13 RBC 3.74 10^6/uL (3.85-5.65) L 05/25/25 10:13 Hgb 12.00 g/dL (11.27-16.99) 05/25/25 10:13 Hct 35.6 % (36-47) L 05/25/25 10:13 MCV 95.2 fl (85-98) 05/25/25 10:13 MCH 32.1 pg (27-33) 05/25/25 10:13 MCHC 33.7 g/dL (30-55) 05/25/25 10:13 RDW 13.5 % (12.1-15.1) 05/25/25 10:13 Plt Count 279 10^3/cmm (157-399) 05/25/25 10:13 MPV 9.1 fL (7.4-10.4) 05/25/25 10:13 Neut % (Auto) 67.5 % 05/25/25 10:13 Lymph % (Auto) 22.6 % 05/25/25 10:13 [place] % (Auto) 8.2 % 05/25/25 10:13 Eos % (Auto) 0.7 % 05/25/25 10:13 Baso % (Auto) 0.6 % 05/25/25 10:13 Neut # (Auto) 6.46 10^3/uL (1.8-7.7) 05/25/25 10:13 Lymph # (Auto) 2.2 10^3/uL (0.8-4.8) 05/25/25 10:13 [place] # (Auto) 0.8 10^3/uL (0.2-0.9) 05/25/25 10:13 Eos # (Auto) 0.1 10^3/uL (0.0-0.8) 05/25/25 10:13 Baso # (Auto) 0.1 10^3/uL (0.0-0.1) 05/25/25 10:13 Nucleated RBC % (auto) 0 % 05/25/25 10:13 Nucleated RBCs # 0.0 /100WBC 05/25/25 10:13 D-Dimer 0.30 ug/mLFEU (0-0.59) 05/25/25 10:13 Sodium 143 mmol/L (136-145) 05/25/25 10:13 Potassium 3.6 mmol/L (3.5-5.1) 05/25/25 10:13 Chloride 108 mmol/L (98-107) H 05/25/25 10:13 Carbon Dioxide 19 mmol/L (22-29) L 05/25/25 10:13 Anion Gap 19.6 (5-19) H 05/25/25 10:13 BUN 10 mg/dL (6-20) 05/25/25 10:13 Creatinine 0.7 mg/dL (0.5-0.9) 05/25/25 10:13 GFR Calculation 93.2 mL/min (90-130) 05/25/25 10:13 Glucose 94 mg/dL (65-115) 05/25/25 10:13 Calculated Osmolality 295 mOsm/kg (285-295) 05/25/25 10:13 Lactic Acid 2.7 mmol/L (0.5-2.2) H 05/25/25 10:13 Calcium 8.4 mg/dL (8.5-10.5) L 05/25/25 10:13 Total Bilirubin 0.2 mg/dL (0.15-1.2) 05/25/25 10:13 AST 11 U/L (0-32) 05/25/25 10:13 ALT 13 U/L (0-33) 05/25/25 10:13 Alkaline Phosphatase 84 U/L (35-105) 05/25/25 10:13 Troponin T Baseline < 6 ng/L (0-10) 05/25/25 10:13 NT-Pro-B Natriuret Pep 142 pg/mL (0-125) H 05/25/25 10:13 Total Protein 6.4 g/dL (6.6-8.7) L 05/25/25 10:13 Albumin 3.9 g/dL (3.5-5.2) 05/25/25 10:13 Globulin 2.5 g/dL (1.3-4.6) 05/25/25 10:13 Urine Color Yellow (Yellow) 05/25/25 10:02 Urine Appearance Clear (CLEAR) 05/25/25 10:02 Urine pH 7.0 (5-7) 05/25/25 10:02 Ur Specific [place] 1.005 (1.005-1.030) 05/25/25 10:02 Urine Protein Negative (Negative) 05/25/25 10:02 Urine Glucose (UA) Negative (Normal) 05/25/25 10:02 Urine Ketones Negative (Negative) 05/25/25 10:02 Urine Blood Negative (Negative) 05/25/25 10:02 Urine Nitrate Negative (Negative) 05/25/25 10:02 Urine Bilirubin Negative (Negative) 05/25/25 10:02 Urine Urobilinogen 0.2 mg/dL (Negative) 05/25/25 10:02 Ur Leukocyte Esterase 1+ (Negative) A 05/25/25 10:02 Urine RBC 0-2 /hpf (0-2) 05/25/25 10:02 Urine WBC 6-10 /hpf (0-5) 05/25/25 10:02 Ur Squamous Epith Cells 0-5 /hpf (0-5) 05/25/25 10:02 Amorphous Sediment Not Reportable 05/25/25 10:02 Urine Bacteria 4+ /hpf (NONE) H 05/25/25 10:02 Hyaline Casts 0-4 /lpf H 05/25/25 10:02 Urine Opiates Screen Negative ng/mL (Negative) 05/25/25 10:02 Ur Barbiturates Screen Negative ng/mL (Negative) 05/25/25 10:02 Ur Phencyclidine Scrn Negative ng/mL (Negative) 05/25/25 10:02 Ur Amphetamines Screen Negative ng/mL (Negative) 05/25/25 10:02 U Benzodiazepines Scrn Negative ng/mL (Negative) 05/25/25 10:02 Urine Cocaine Screen Negative ng/mL (Negative) 05/25/25 10:02 U Marijuana (THC) Screen Negative ng/mL (Negative) 05/25/25 10:02 Ethyl Alcohol 184 mg/dL (0-10) H 05/25/25 10:13 Serum Ketones Negative (Negative) 05/25/25 10:13 All radiology interpretation(s) finalized by discharge Discharge Plan Discharge Patient Disposition: Home Clinical Impression: Edema Qualifiers: Edema type: unspecified Qualified Code(s): R60.9 - Edema, unspecified Condition: Stable Prescriptions: New furosemide [Lasix] 20 mg tablet 20 mg PO DAILY Qty: 4 0RF No Action cyclobenzaprine 10 mg tablet 10 mg PO TID PRN (Reason: Spasms) naltrexone 50 mg tablet 50 mg PO DAILY PRN (Reason: opioid dependence) prednisone 20 mg tablet 40 mg PO QAM olanzapine 5 mg tablet 5 mg PO BEDTIME hydroxyzine pamoate 50 mg capsule 50 mg PO TID PRN (Reason: depression) buspirone 10 mg tablet 10 mg PO TID PRN (Reason: Anxiety) bupropion HCl 150 mg tablet extended release 24 hr 150 mg PO DAILY Discharge Orders: Discharge ED (Routine); Ordered 05/25/25 Ordered By: Savana Zuniga Referrals: Tito Emmanuel DO [Primary Care Provider] Patient Instructions: Patient Portal & Jeny Instructions Activity Restrictions/Additional Instructions: As we discussed, I would like you to follow-up with your primary care provider. Case management referral has been placed for this. Will also place a referral to get you set up with nephrology for your kidney disease. Print Language: Tristanian Coding Level of Care Code ED Lan Manager for Omar Olmedo
[2025-05-25 10:21] LABS: Hematocrit 35.6 % (36-47); Hemoglobin 12.00 g/dL (11.27-16.99); Mean Corpuscular HGB Conc 33.7 g/dL (30-55); Mean Corpuscular Hemoglobin 32.1 pg (27-33); Mean Corpuscular Volume 95.2 fl (85-98); Nucleated Red Blood Cells % 0 %; Platelet Count 279 10^3/cmm (157-399); Red Blood Count 3.74 10^6/uL (3.85-5.65); White Blood Count 9.59 10^3/uL (3.29-11.43)
[2025-05-25 10:32] LABS: Ketone (Acetest) Serum Negative (Negative)
[2025-05-25 10:40] LABS: Lactic Sepsis W/Reflex 2.7 mmol/L (0.5-2.2)
[2025-05-25 10:41] LABS: Reflex Lactate Order REFLEX LACTIC ORDERD
[2025-05-25 10:42] LABS: Troponin(5th) Baseline < 6 ng/L (0-10)
[2025-05-25 10:49] LABS: Alanine Aminotransferase 13 U/L (0-33); Albumin Level 3.9 g/dL (3.5-5.2); Alcohol Level 184 mg/dL (0-10); Alkaline Phosphatase 84 U/L (35-105); Anion Gap 19.6 (5-19); Aspartate Amino Transferase 11 U/L (0-32); Blood Urea Nitrogen 10 mg/dL (6-20); Calcium 8.4 mg/dL (8.5-10.5); Carbon Dioxide 19 mmol/L (22-29); Chloride 108 mmol/L (98-107); Creatinine Clr Calc Pharmacy 124.5241; Globulin 2.5 g/dL (1.3-4.6); Glucose 94 mg/dL (65-115); NT Pro B Type Natriuretic Pept 142 pg/mL (0-125); Osmolality Calculated 295 mOsm/kg (285-295); Potassium 3.6 mmol/L (3.5-5.1); Sodium 143 mmol/L (136-145); Total Protein 6.4 g/dL (6.6-8.7)
--- NOTE | 2025-05-25 11:01 | PC.PHAR ---
Unable to wake pt or spouse, in the room. Medications verified with [facility]. Pt did pick all listed medications up.
[2025-05-25 11:05] LABS: Glucose Urine UA Negative (Normal); Nitrate Urine Negative (Negative); Specific Gravity, Urine 1.005 (1.005-1.030)
[2025-05-25 11:10] LABS: Add Urine Microscopic? YES
[2025-05-25 11:12] LABS: PCP Screen Urine Negative (Negative)
[2025-05-25 11:28] VITALS: PULSE 102; O2SAT 94
--- NOTE | 2025-05-25 11:41 | ECG_ITS ---
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
[2025-05-25] MEDS: FUROsemide 10 mg/mL SDV 4mL 40 MG IVP (12:30)
--- NOTE | 2025-05-25 12:49 | DCPLANNER ---
messaged [facility] to establish PCP. faxed nephrology referral to [facility] [phone].
[2025-05-25 13:51] VITALS: BP 115/71; PULSE 101; O2SAT 98
== END 2025-05-25 13:53 | disposition home or self-care (01) ==
PROVIDERS: Emergency Provider Physician Assistant; PCP Family Medicine
DX: R60.9 Edema, unspecified (principal); Z87.891 Personal history of nicotine dependence
CPT/HCPCS: 36415; 71045; 80053; 80306; 80307; 81001; 82009; 83605; 83880; 84484; 85025; 85378; 87077; 87086; 87186; 93005; 96374; 99285; J1938